=== PATIENT | male | born 1950 | race Caucasian/White ===

== ENCOUNTER → 2018-02-03 | Outpatient (REF) | payer MEDICARE ==
[2018-02-05 14:11] LABS: TESTOSTERONE FREE (DIRECT) 8.5 pg/mL (6.6-18.1)
== END ==
LOC: M LAB REF 14:13
DX: N52.9 Male erectile dysfunction, unspecified (principal)
CPT/HCPCS: 84403

== ENCOUNTER → 2019-08-22 | Outpatient (CLI) | payer MEDICARE | LOC: M LABSMTC 12:54 | PROVIDERS: ATTEND Family Medicine | DX: Z11.59 Encounter for screening for other viral diseases (principal) ==

== ENCOUNTER → 2019-09-21 | Outpatient (REF) | payer MEDICARE ==
[2019-09-21 15:02] LABS: PERCENT SATURATION 51.5 % (19.7-50.0)
[2019-09-21 17:18] LABS: FOLATE 4.3 NG/ML
== END ==
LOC: M LAB REF 12:17
PROVIDERS: ATTEND Internal Medicine
DX: D50.9 Iron deficiency anemia, unspecified (principal)

== ENCOUNTER → 2020-02-22 | Outpatient (REF) | payer MEDICARE | LOC: M LAB REF 11:13 | PROVIDERS: ATTEND Internal Medicine | DX: Z01.89 Encounter for other specified special examinations (principal) ==

== ENCOUNTER → 2020-03-28 | Outpatient (CLI) | payer MEDICARE ==
[~2020-03-28] MED LIST: ALPR0.5T3 PO; APAP500T10 PO; ASPI-161 PO; AUGM875T28 PO; BENE1POW5 PO; CLOP75TA2 PO; COLA100C5 PO; DIPH25CA32 PO; DOXY-350 PO; FERR324T2 PO; METO1TAB32 PO; MIRA3350 PO; PANT40TA29 PO; PRED20TA PO; ROSU10TA6 PO; SILD20TA11 PO; SYMB16INH PO; THERTAB52 PO; TRAZ-252 PO; VENTAER PO
== END ==
LOC: M LABSMTC 10:26
PROVIDERS: ATTEND Family Medicine
DX: U07.1 COVID-19 (principal)

== ENCOUNTER 2020-03-31 19:07 | Inpatient (IN) | payer MEDICARE ==
[~2020-03-31] VITALS: Ht 172.7 cm; Wt 91.8 kg
[2020-03-31] MEDS ORDERED: methylPREDNISolone 125MG 2ML VIAL IV ONE (19:45)
[2020-03-31] MEDS ORDERED: COMBIVENT RESPIMAT 100-20MCG INHALER 4GM INH ONE (19:45)
[2020-03-31 20:14] LABS: BASO % 0.4 % (0.0-1.0); EOS % 0.2 % (0.0-3.0); HEMATOCRIT 30.3 % (42.0-52.0); HEMOGLOBIN 8.9 g/dl (13.5-17.5); LYMPH # 0.1 10^3/uL (1.5-5.0); LYMPH % 2.3 % (24.0-44.0); MEAN CORPUSCULAR HEMOGLOBIN 22.4 pg (27.0-33.0); MEAN CORPUSCULAR HGB CONC 29.4 g/dl (32.0-36.5); MEAN CORPUSCULAR VOLUME 76.3 fl (80.0-96.0); MONO # 0.3 10^3/uL (0.0-0.8); MONO % 4.4 % (0.0-5.0); NEUTROPHILS # 5.2 10^3/uL (1.5-8.5); NEUTROPHILS % 92.2 % (36.0-66.0); PLATELET COUNT, AUTOMATED 224 10^3/uL (150-450); RED BLOOD COUNT 3.97 10^6/uL (4.30-6.10); WHITE BLOOD COUNT 5.7 10^3/uL (4.0-10.0)
[2020-03-31 20:24] LABS: INR 1.03; PROTHROMBIN TIME 13.7 SECONDS (12.5-14.3)
[2020-03-31 20:44] LABS: C REACTIVE PROTEIN QUANTITATIV 18.3 MG/DL (0.00-0.30)
[2020-03-31 20:49] LABS: ALBUMIN 3.2 GM/DL (3.2-5.2); ALT/SGPT 32 U/L (12-78); BILIRUBIN,DIRECT 0.3 MG/DL (0.0-0.2); BILIRUBIN,TOTAL 0.5 MG/DL (0.2-1.0); BLOOD UREA NITROGEN 19 MG/DL (7-18); CALCIUM LEVEL 7.9 MG/DL (8.8-10.2); CARBON DIOXIDE LEVEL 24 MEQ/L (21-32); CHLORIDE LEVEL 102 MEQ/L (98-107); CK-MB VALUE MASS 1.2 NG/ML (<3.6); CPK CREATINE PHOSPHOKINASE 350 U/L (39-308); CREATININE FOR GFR 1.11 MG/DL (0.70-1.30); GLOMERULAR FILTRATION RATE > 60.0 (>49); GLUCOSE, FASTING 110 MG/DL (70-100); MB/CK RELATIVE INDEX 0.34 (< OR =4); NT-PRO BNP 171 PG/ML (<125); SODIUM LEVEL 135 MEQ/L (136-145); TOTAL PROTEIN 6.6 GM/DL (6.4-8.2); TROPONIN I < 0.02 NG/ML (< 0.10)
[2020-03-31] MEDS ORDERED: ISOVUE-370 76% 100ML VIAL As Ordered ONE (21:20)
--- NOTE | 2020-03-31 22:10 | REPVR ---
PROCEDURE INFORMATION: Exam: XR Chest, 1 View Exam date and time: 03/31/2020 7:32 PM Age: 69 years old Clinical indication: Shortness of breath; Additional info: Dyspnea/cough TECHNIQUE: Imaging protocol: XR of the chest Views: 1 view. COMPARISON: No relevant prior studies available. FINDINGS: Lungs: Opacification at bilateral lung bases representing atelectasis/infiltrates. Pleural space: Unremarkable. No pleural effusion. No pneumothorax. Heart/Mediastinum: Unremarkable. No cardiomegaly. Bones/joints: Degenerative changes of the spine. IMPRESSION: Opacification at bilateral lung bases representing atelectasis/infiltrates. Electronically signed by: Jose Donald On 03/31/2020 22:10:30 PM
--- NOTE | 2020-03-31 22:16 | REPVR ---
PROCEDURE INFORMATION: Exam: CT Angiography Chest With Contrast Exam date and time: 03/31/2020 9:38 PM Age: 69 years old Clinical indication: Chest pain; Additional info: Covid positive, SOB TECHNIQUE: Imaging protocol: Computed tomographic angiography of the chest with intravenous contrast. 3D rendering (Not supervised by radiologist): MIP and/or 3D reconstructed images were created by the technologist. Radiation optimization: All CT scans at this facility use at least one of these dose optimization techniques: automated exposure control; mA and/or kV adjustment per patient size (includes targeted exams where dose is matched to clinical indication); or iterative reconstruction. Contrast material: ISO 370; Contrast volume: 75 ml; Contrast route: INTRAVENOUS (IV); COMPARISON: CR PORTABLE CHEST X-RAY 03/31/2020 8:12 PM FINDINGS: Pulmonary arteries: Normal. No pulmonary emboli. Aorta: Unremarkable. No aortic aneurysm. No aortic dissection. Lungs: Emphysematous changes. There is opacification at bilateral lung bases. Pleural space: Unremarkable. No pneumothorax. No pleural effusion. Heart: Unremarkable. No cardiomegaly. No pericardial effusion. Lymph nodes: Unremarkable. No enlarged lymph nodes. Bones/joints: Unremarkable. No acute fracture. Soft tissues: Unremarkable. IMPRESSION: Opacification at bilateral lung bases. Etiology likely infectious. Correlation with patient's COVID-19 status with lab value. Emphysematous changes. No pulmonary embolism. Electronically signed by: Jose Donald On 03/31/2020 22:16:33 PM
[2020-03-31] MEDS ORDERED: SILD20TA11 PO (22:23)
[2020-03-31] MEDS ORDERED: VENTAER PO (22:23)
[2020-03-31] MEDS ORDERED: APAP500T10 PO (22:23)
[2020-03-31] MEDS ORDERED: COLA100C5 PO (22:23)
[2020-03-31] MEDS ORDERED: MIRA3350 PO (22:23)
[2020-03-31] MEDS ORDERED: FERR324T2 PO (22:23)
[2020-03-31] MEDS ORDERED: ASPI-161 PO (22:23)
[2020-03-31] MEDS ORDERED: METO1TAB32 PO (22:23)
[2020-03-31] MEDS ORDERED: TRAZ-252 PO (22:23)
[2020-03-31] MEDS ORDERED: CLOP75TA2 PO (22:23)
[2020-03-31] MEDS ORDERED: ALPR0.5T3 PO (22:23)
[2020-03-31] MEDS ORDERED: THERTAB52 PO (22:23)
[2020-03-31] MEDS ORDERED: PANT40TA29 PO (22:23)
[2020-03-31] MEDS ORDERED: DIPH25CA32 PO (22:23)
[2020-03-31] MEDS ORDERED: ROSU10TA6 PO (22:23)
[2020-03-31] MEDS ORDERED: SYMB16INH PO (22:23)
[2020-03-31] MEDS ORDERED: BENE1POW5 PO (22:23)
[2020-03-31] MEDS ORDERED: MIRALAX *UNIT DOSE* 17GM PACKET PO PRN (23:00)
[2020-03-31] MEDS ORDERED: ALBUTEROL 90 MCG/ACT 8GM HFA INHALER INH PRN (23:00)
--- NOTE | 2020-03-31 23:11 | HPEPDOC ---
General Date of Admission 03/31/20 Date of Service: Mar 31, 2020 Chief Complaint The patient is a 69-year-old male admitted with a reason for visit of SOB. Source: Patient Exam Limitations: No limitations Timing/Duration: Day(s) Severity: Moderate Associated Symptoms: Shortness of breath History of Present Illness Patient is 69 years old male with past history of coronary artery diseases with stent placement in 2019, asthma, hyperlipidemia, chronic anemia, hypertension presented to the hospital with increased shortness of breath. Patient stated that he was tested positive for COVID 19 on 03/28/20. For past 3 days he has been having increased shortness of breath, cough and fever around 101. Also patient used inhalers more frequently. In ER patient was found to have acute hypoxemic respiratory failure, requiring [address] was done and showed Opacification at bilateral lung bases. Patient does not have leukocytosis. Home Medications Scheduled Alprazolam (Alprazolam) 0.5 Mg Tablet, 0.5 MG PO TID, (Reported) Aspirin (Aspirin EC) 81 Mg Tablet.dr, 81 MG PO DAILY, (Reported) Budesonide/Formoterol (Symbicort 160-4.5 Mcg Inhaler) 6 Gm Hfa.aer.ad, 2 PUFFS PO BID, (Reported) Clopidogrel Bisulfate (Clopidogrel) 75 Mg Tablet, 75 MG PO DAILY, (Reported) Diphenhydramine HCl (Diphenhydramine HCl) 25 Mg Capsule, 50 MG PO QHS, (Reported) Docusate Sodium (Colace) 100 Mg Capsule, 300 MG PO QHS, (Reported) Ferrous Sulfate (Ferrous Sulfate) 324 Mg Tablet.dr, 324 MG PO DAILY, (Reported) Metoprolol Succinate (Metoprolol Succinate) 25 Mg Tab.er.24h, 25 MG PO QHS, (Reported) Multivitamin,Therapeutic (Thera-Tabs) 1 Each Tablet, 1 TAB PO DAILY, (Reported) Pantoprazole Sodium (Pantoprazole Sodium) 40 Mg Tablet.dr, 40 MG PO DAILY, (Reported) Rosuvastatin Calcium (Rosuvastatin Calcium) 10 Mg Tablet, 5 MG PO QHS, (Reported) Trazodone HCl (Trazodone HCl) 50 Mg Tablet, 100 MG PO QHS, (Reported) Wheat Dextrin (Benefiber) 1 Each Powd.pack, 1 POW PO DAILY, (Reported) Scheduled PRN Acetaminophen (Acetaminophen) 500 Mg Tablet, 500 MG PO Q6H PRN for PAIN / FEVER, (Reported) Albuterol Sulfate (Ventolin Hfa) 18 Gm Hfa.aer.ad, 2 PUFFS PO Q4H PRN for SHORTNESS OF BREATH, (Reported) Polyethylene Glycol 3350 (Miralax) 119 Gm Powder, 17 GM PO DAILY PRN for CONSTIPATION, (Reported) dilute in 8 ounces of water or juice Sildenafil Citrate (Sildenafil Citrate) 20 Mg Tablet, 20 MG PO ASDIRECTED PRN for ERECTILE DYSFUNCTION, (Reported) Allergies Coded Allergies: theophylline (Verified Adverse Reaction, Mild, HYPERACTIVITY, 03/31/20) Past Medical History Medical History coronary artery diseases with 2 stents placement in 2019, asthma, hyperlipidemia, hypertension, chronic iron deficient anemia Surgical History coronary artery diseases with 2 stents placement in 2019 Family History I Personally reviewed family history and found not pertinent Social History * Smoker: Denies Alcohol: occationally Drugs: denies A-FIB/CHADSVASC A-FIB History Current/History of A-Fib/PAF?: No Current PO Anticoag Therapy: No Review of Systems Constitutional: Reports: Fever, Malaise Eyes: Denies: Pain ENT: Denies: Head Aches Skin: Denies: Rash Pulmonary: Reports: Dyspnea, Cough Cardiovascular: Denies: Chest Pain Gastrointestinal: Denies: Nausea, Vomiting Genitourinary: Denies: Dysuria Endocrine: Denies: Polydipsia Musculoskeletal: Denies: Neck Pain Neurological: Denies: Weakness, Numbness Psych: Reports: Mood Normal Physical Examination General Exam: Positive: Alert, Cooperative Eye Exam: Positive: PERRLA ENT Exam: Positive: Atraumatic Neck Exam: Positive: Supple; Negative: JVD Chest Exam: Positive: Rhonchi, Wheezing Heart Exam: Positive: Rate Normal Telemetry: Positive: No significant arrhythmia Extremity Exam: Negative: Cyanosis Skin Exam: Positive: Nl turgor and temperature Neuro Exam: Positive: Strength at 5/5 X4 ext Psych Exam: Positive: Mental status NL Vital Signs Vital Signs Date Time Temp Pulse Resp B/P (MAP) Pulse Ox O2 Delivery O2 Flow Rate FiO2 03/31/20 22:15 112 16 127/69 (88) 97 03/31/20 21:58 Room Air 03/31/20 19:17 2.0 03/31/20 19:12 99.1 Laboratory Data Labs 24H Laboratory Tests 2 03/31/20 19:51: Immature Granulocyte % (Auto) 0.5, Neutrophils (%) (Auto) 92.2H, Lymphocytes (%) (Auto) 2.3L, Monocytes (%) (Auto) 4.4, Eosinophils (%) (Auto) 0.2, Basophils (%) (Auto) 0.4, Neutrophils # (Auto) 5.2, Lymphocytes # (Auto) 0.1L, Monocytes # (Auto) 0.3, Eosinophils # (Auto) 0.0, Basophils # (Auto) 0.0, Nucleated Red Blood Cells % (auto) 0.0, Prothrombin Time 13.7, Prothromb Time International Ratio 1.03, D-Dimer, Quantitative 924.47H, Anion Gap 9, Glomerular Filtration Rate > 60.0, Lactic Acid Level 1.2, Calcium Level 7.9L, Ferritin 42, Total Bilirubin 0.5, Direct Bilirubin 0.3H, Aspartate Amino Transf (AST/SGOT) 32, Alanine Aminotransferase (ALT/SGPT) 32, Alkaline Phosphatase 165H, Lactate Dehydrogenase 288H, Total Creatine Kinase 350H, Creatine Kinase MB 1.2, Creatine Kinase MB Relative Index 0.34, Troponin I < 0.02, C-Reactive Protein, Quant itative 18.30H, YY-Jev-P-Type Natriuretic Peptide 171H, Total Protein 6.6, Albumin 3.2, Albumin/Globulin Ratio 0.9, Thyroid Stimulating Hormone (TSH) 1.970 CBC/BMP Laboratory Tests 03/31/20 19:51 Assessment/Plan Patient is 69 years old male with past history of coronary artery diseases with 2 stents placement in 2019, asthma, hyperlipidemia, hypertension presented to the hospital with increased shortness of breath. Patient stated that he was tested positive for COVID 19 on 03/28/20. For past 3 days he has been having increased shortness of breath, cough and fever around 101. Also patient used inhalers more frequently. In ER patient was found to have acute hypoxemic respiratory failure, requiring [address] was done and showed Opacification at bilateral lung bases. Etiology likely infectious. Correlation with patient's COVID-19 status with lab value. Emphysematous changes. No pulmonary embolism. Problems (1) COVID-19 Status: Acute Problem Text: Labs ordered according to protocol Started steroids and remdesevir (2) Pneumonia Status: Acute Problem Text: Secondary to COVID 19, there is possibility of bacterial infection Will start ceftriaxone IV and azithromycin IV If procalcitonin negative we'll stop antibiotics (3) Acute hypoxemic respiratory failure due to COVID-19 Status: Acute Problem Text: Patient developed acute hypoxemic respiratory failure secondary to pneumonia and asthma exacerbation Inhalers Steroids (4) Coronary artery disease Status: Chronic Problem Text: Continue home cardioprotective medications (5) Acute asthma exacerbation Status: Acute Problem Text: Secondary to viral pneumonia due to COVID Continue inhalers, oxygen Incentive spirometry Steroids IV Plan / VTE VTE Prophylaxis Ordered?: Yes BEHZAD KLEIN DO Mar 31, 2020 23:11
[2020-03-31] MEDS ORDERED: METOPROLOL TART 25 MG TABLET PO ONE (23:15)
[2020-04-01] VITALS (11 sets, daily range): BP systolic 114–129; BP diastolic 58–84; O2SAT 94–100
[2020-04-01 00:38] LABS: D-DIMER QUANT 815.35 ng/ml (<500)
[2020-04-01] MEDS ORDERED: SODIUM CHLORIDE 0.9% INJ 10 ML SYR IV ONE (00:45)
[2020-04-01 00:50] LABS: CK-MB VALUE MASS 1.8 NG/ML (<3.6); CPK CREATINE PHOSPHOKINASE 362 U/L (39-308); FERRITIN 40 NG/ML (26-388); LDH LACTATE DEHYDROGENASE 278 U/L (87-241); NT-PRO BNP 176 PG/ML (<125); TROPONIN I < 0.02 NG/ML (< 0.10)
[2020-04-01] MEDS: SYMBICORT 160/4.5MCG INHALER 6GM INH SCH ×3 (01:17→19:44)
[2020-04-01] MEDS: cefTRIAXone SOD 1 GM in D5W MINI-BAG PLUS 50 ML IV SCH (03:30)
[2020-04-01] MEDS: diphenhydrAMINE 25MG CAP PO SCH ×2 (03:31→20:23)
[2020-04-01] MEDS: DOCUSATE SODIUM 100MG CAPSULE PO SCH ×2 (03:31→20:23)
[2020-04-01] MEDS ORDERED: PILL CUTTER 1 EACH XX PRN (03:45)
[2020-04-01] MEDS: ROSUVASTATIN 10 MG TAB (CRESTOR) PO SCH ×2 (03:46→20:24)
[2020-04-01] MEDS: ALPRAZolam 0.5 MG TAB PO SCH ×4 (03:46→20:23)
[2020-04-01] MEDS: FERROUS SULFATE 325MG TAB PO SCH ×3 (03:46→20:24)
[2020-04-01] MEDS: METOPROLOL SUCC *XL* 25MG TAB (TopROL *XL*) PO SCH ×2 (04:04→20:25)
[2020-04-01] MEDS: ACETAMINOPHEN TAB 650MG DOSE (2X325MG) PO PRN ×2 (04:06→20:23)
[2020-04-01] MEDS: methylPREDNISolone 125MG 2ML VIAL IV SCH ×3 (04:22→20:25)
[2020-04-01] MEDS: AZITHROMYCIN INJ 500 MG, VIAL MATE ADAPTER 1 EACH in D5W 250 ML IV SCH (04:28)
[2020-04-01 08:17] LABS: HEMATOCRIT 28.9 % (42.0-52.0); HEMOGLOBIN 8.6 g/dl (13.5-17.5); MEAN CORPUSCULAR HEMOGLOBIN 22.3 pg (27.0-33.0); MEAN CORPUSCULAR HGB CONC 29.8 g/dl (32.0-36.5); MEAN CORPUSCULAR VOLUME 75.1 fl (80.0-96.0); PLATELET COUNT, AUTOMATED 226 10^3/uL (150-450); RED BLOOD COUNT 3.85 10^6/uL (4.30-6.10)
[2020-04-01] MEDS: ASPIRIN 81 MG ENTERIC TAB PO SCH (08:32)
[2020-04-01] MEDS: PANTOPRAZOLE 40MG TAB (PROTONIX) PO SCH (08:32)
[2020-04-01] MEDS: CLOPIDOGREL 75 MG TAB PO SCH (08:33)
[2020-04-01] MEDS: ENOXAPARIN 40MG/0.4ML SYRINGE (J1650 PER 10MG) SC SCH (08:33)
[2020-04-01 08:41] LABS: ALT/SGPT 30 U/L (12-78); BILIRUBIN,TOTAL 0.4 MG/DL (0.2-1.0); BLOOD UREA NITROGEN 21 MG/DL (7-18); CARBON DIOXIDE LEVEL 24 MEQ/L (21-32); CHLORIDE LEVEL 103 MEQ/L (98-107); CREATININE FOR GFR 1.04 MG/DL (0.70-1.30); GLOMERULAR FILTRATION RATE > 60.0 (>49); GLUCOSE, FASTING 174 MG/DL (70-100); MAGNESIUM LEVEL 2.5 MG/DL (1.8-2.4); SODIUM LEVEL 135 MEQ/L (136-145); TOTAL PROTEIN 6.4 GM/DL (6.4-8.2)
--- NOTE | 2020-04-01 09:19 | ECGEPIP ---
[facility] - ED Test Date: 2020-03-31 Pat Name: MICHAEL REYNOSO Department: Room: [place] [address] Gender: Male Inside Steward/Stewardess: JUDITH : 1950 Requested By: LIV Mckeon Order Number: [id number] Reading MD: Jg Kendrick Measurements Intervals [place] Rate: 114 P: 42 KS: 193 QRS: 5 QRSD: 105 T: 19 QT: 313 QTc: 433 Interpretive Statements SINUS TACHYCARDIA POOR R WAVE PROGRESSION NO PRIORS FOR COMPARISON Electronically Signed on 04-01-2020 9:19:29 EST by Jg Kendrick
--- NOTE | 2020-04-01 14:55 | IPNPDOC ---
Text Note Date of Service The patient was seen on 04/01/20. NOTE Subjective: Patient's breathing significantly improved since yesterday, his o xygen saturation around 97% on 2 L. Objective: GENERAL APPEARANCE: NAD HEENT: no scleral icterus, no JVD, EOMI CARDIOVASCULAR: S1S2 LUNGS: Diminished lung sounds bilaterally ABDOMEN: soft & not tender w palpitation MUSCULOSKELETAL: no cyanosis, no swelling INTEGUMENT: no generalized pallor NEUROLOGICAL: cranial nerve function from 2-12 intact intact, follows commands, speech not dysarthric Assessment/Plan Patient is 69 years old male with past history of coronary artery diseases with 2 stents placement in 2019, asthma, hyperlipidemia, hypertension presented to the hospital with increased shortness of breath. Patient stated that he was tested positive for COVID 19 on 03/28/20. For past 3 days he has been having increased shortness of breath, cough and fever around 101. Also patient used inhalers more frequently. In ER patient was found to have acute hypoxemic respiratory failure, requiring [address] was done and showed Opacification at bilateral lung bases. Etiology likely infectious. Correlation with patient's COVID-19 status with lab value. Emphysematous changes. No pulmonary embolism. Problems (1) COVID-19 Continue steroids and remdesevir. Inflammatory markers slightly improved (2) Pneumonia Secondary to COVID 19 superimposed with bacterial component Continue ceftriaxone IV and azithromycin IV Procalcitonin elevated to 1.6 (3) Acute hypoxemic respiratory failure due to COVID-19 Resolved Patient developed acute hypoxemic respiratory failure secondary to pneumonia and asthma exacerbation Inhalers Steroids (4) Coronary artery disease Continue home cardioprotective medications (5) asthma exacerbation Resolved. No wheezes today Secondary to viral pneumonia due to COVID Continue inhalers, oxygen Incentive spirometry Steroids IV VS,Fishbone, I+O VS, Fishbone, I+O Laboratory Tests 03/31/20 19:51 04/01/20 07:20 Vital Signs Date Time Temp Pulse Resp B/P (MAP) Pulse Ox O2 Delivery O2 Flow Rate FiO2 04/01/20 08:21 98 Nasal Cannula 2.0 04/01/20 07:36 97.1 78 21 120/71 (87) I&O- Last 24 Hours up to 6 AM 04/01/20 06:00 Intake Total 230 ml Balance 230 ml BEHZAD KLEIN DO Apr 01, 2020 14:55
[2020-04-01] MEDS ORDERED: traZODone 50 MG TAB PO SCH (21:00)
[2020-04-01] MEDS ORDERED: SODIUM CHLORIDE 0.9% INJ 10 ML SYR IV SCH (23:45)
[2020-04-02] VITALS: O2SAT 94
[2020-04-02] MEDS: cefTRIAXone SOD 1 GM in D5W MINI-BAG PLUS 50 ML IV SCH (01:01)
[2020-04-02] MEDS: AZITHROMYCIN INJ 500 MG, VIAL MATE ADAPTER 1 EACH in D5W 250 ML IV SCH (02:28)
[2020-04-02 04:00] VITALS: O2SAT 95
[2020-04-02] MEDS: methylPREDNISolone 125MG 2ML VIAL IV SCH ×2 (04:14→11:12)
[2020-04-02 04:15] VITALS: BP 123/59
[2020-04-02 07:18] VITALS: BP 107/57
[2020-04-02] MEDS: SYMBICORT 160/4.5MCG INHALER 6GM INH SCH (07:39)
[2020-04-02 08:00] VITALS: O2SAT 95
[2020-04-02] MEDS: CLOPIDOGREL 75 MG TAB PO SCH (08:38)
[2020-04-02] MEDS: ENOXAPARIN 40MG/0.4ML SYRINGE (J1650 PER 10MG) SC SCH (08:38)
[2020-04-02] MEDS: FERROUS SULFATE 325MG TAB PO SCH (08:38)
[2020-04-02] MEDS: ASPIRIN 81 MG ENTERIC TAB PO SCH (08:39)
[2020-04-02] MEDS: PANTOPRAZOLE 40MG TAB (PROTONIX) PO SCH (08:39)
[2020-04-02] MEDS: ALPRAZolam 0.5 MG TAB PO SCH (08:39)
[2020-04-02 12:00] VITALS: O2SAT 95
[2020-04-02] MEDS ORDERED: DOXY-350 PO (12:56)
[2020-04-02] MEDS ORDERED: AUGM875T28 PO (12:56)
[2020-04-02] MEDS ORDERED: PRED20TA PO (12:56)
--- NOTE | 2020-04-02 17:45 | DS.PDOC ---
Discharge Summary General Date of Admission Mar 31, 2020 at 22:44 Date of Discharge 04/02/20 Discharge Summary PROCEDURES PERFORMED DURING STAY: [None]. ADMITTING DIAGNOSES: COVID-19 Pneumonia Acute hypoxemic respiratory failure due to COVID-19 Coronary artery disease asthma exacerbation DISCHARGE DIAGNOSES: COVID-19 Pneumonia Acute hypoxemic respiratory failure due to COVID-19 Coronary artery disease asthma exacerbation COMPLICATIONS/CHIEF COMPLAINT: Covid 19, Hypoxia, Pneumonia. HISTORY OF PRESENT ILLNESS:Patient is 69 years old male with past history of coronary artery diseases with 2 stents placement in 2019, asthma, hyperlipidemia, hypertension presented to the hospital with increased shortness of breath. Patient stated that he was tested positive for COVID 19 on 03/28/20. For past 3 days he has been having increased shortness of breath, cough and fever around 101. Also patient used inhalers more frequently. In ER patient was found to have acute hypoxemic respiratory failure, requiring [address] was done and showed Opacification at bilateral lung bases. Etiology likely infectious. Correlation with patient's COVID-19 status with lab value. Emphysematous changes. No pulmonary embolism. HOSPITAL COURSE: During hospital stay following issues addressed (1) COVID-19 Patient received steroids and remdesevir. Inflammatory markers slightly improved (2) Pneumonia Secondary to COVID 19 superimposed with bacterial component Patient received ceftriaxone IV and azithromycin IV Procalcitonin elevated to 1.6 (3) Acute hypoxemic respiratory failure due to COVID-19 Resolved Patient developed acute hypoxemic respiratory failure secondary to pneumonia and asthma exacerbation Inhalers Steroids (4) Coronary artery disease Continue home cardioprotective medications (5) asthma exacerbation Resolved. No wheezes today Secondary to viral pneumonia due to COVID Continue inhalers, oxygen Incentive spirometry Steroids IV DISCHARGE MEDICATIONS: Please see below. ALLERGIES: Please see below. PHYSICAL EXAMINATION ON DISCHARGE: VITAL SIGNS: Please see below. GENERAL APPEARANCE: NAD HEENT: no scleral icterus, no JVD, EOMI CARDIOVASCULAR: S1S2 LUNGS: Diminished lung sounds bilaterally ABDOMEN: soft & not tender w palpitation MUSCULOSKELETAL: no cyanosis, no swelling INTEGUMENT: no generalized pallor NEUROLOGICAL: cranial nerve function from 2-12 intact intact, follows commands, speech not dysarthric LABORATORY DATA: Please see below. IMAGING: [facility] NAME: MICHAEL REYNOSO DATE OF : 1950 BUSINESS NUMBER: [id number] AGE: 69 SEX: M REPORT #: [id number] ROOM: ED TECHNOLOGIST: LUZ MARIA DOCTOR: LIV DELVALLE MD Ordered for Date&Time: 03/31/202032 cc: [~ rep ct ivnm] Service Date&Time: 03/31/202137 This report is in Signed status. Interpretation performed by [facility]. Thank you for having your radiology procedures performed at [facility] RADIOLOGY REPORT Date&Time printed: [~ rep prt dt last] [~ rep prt tm last] Page 2 of 2 [place] [id number] RADIOLOGY REPORT This report is in Signed status. Interpretation performed by [facility]. Thank you for having your radiology procedures performed at [facility] RADIOLOGY REPORT Date&Time printed: [~ rep prt dt last] [~ rep prt tm last] Page 1 of 1 Exam: CT Angiography Chest With Contrast Exam date and time: 03/31/2020 9:38 PM Age: 69 years old Clinical indication: Chest pain; Additional info: Covid positive, SOB TECHNIQUE: Imaging protocol: Computed tomographic angiography of the chest with intravenous contrast. 3D rendering (Not supervised by radiologist): MIP and/or 3D reconstructed images were created by the technologist. Radiation optimization: All CT scans at this facility use at least one of these dose optimization techniques: automated exposure control; mA and/or kV adjustment per patient size (includes targeted exams where dose is matched to clinical indication); or iterative reconstruction. Contrast material: ISO 370; Contrast volume: 75 ml; Contrast route: INTRAVENOUS (IV); COMPARISON: CR PORTABLE CHEST X-RAY 03/31/2020 8:12 PM FINDINGS: Pulmonary arteries: Normal. No pulmonary emboli. Aorta: Unremarkable. No aortic aneurysm. No aortic dissection. Lungs: Emphysematous changes. There is opacification at bilateral lung bases. Pleural space: Unremarkable. No pneumothorax. No pleural effusion. Heart: Unremarkable. No cardiomegaly. No pericardial effusion. Lymph nodes: Unremarkable. No enlarged lymph nodes. Bones/joints: Unremarkable. No acute fracture. Soft tissues: Unremarkable. IMPRESSION: Opacification at bilateral lung bases. Etiology likely infectious. Correlation with patient's COVID-19 status with lab value. Emphysematous changes. No pulmonary embolism. Electronically signed by: Jose Donald On 03/31/2020 22:16:33 PM DD: JOSE Tesfaye RAI DO 03/31/202137 DT: LAINEY 03/31/202215 DS: LEONIE 03/31/202215 [~ rep ct labl] PROGNOSIS: Fair ACTIVITY: [As tolerated]. DIET: Cardiac DISPOSITION: Home Health Service. DISCHARGE INSTRUCTIONS: [place] for 2 weeks in total ITEMS TO FOLLOWUP ON ON OUTPATIENT: f/u with PCP in 7 days DISCHARGE CONDITION: [Stable]. TIME SPENT ON DISCHARGE: Greater than 40 minutes. Vital Signs/I&Os Vital Signs Date Time Temp Pulse Resp B/P (MAP) Pulse Ox O2 Delivery O2 Flow Rate FiO2 04/02/20 12:00 95 Room Air 04/02/20 07:18 97.0 78 19 107/57 (74) 04/01/20 08:21 2.0 I&O- Last 24 Hours up to 6 AM 04/02/20 06:00 Intake Total 2210 ml Output Total 1200 ml Balance 1010 ml Laboratory Data Labs 24H Laboratory Tests 2 04/01/20 22:53: C-Reactive Protein, Quantitative 14.00H Discharge Medications Scheduled Alprazolam (Alprazolam) 0.5 Mg Tablet, 0.5 MG PO TID, (Reported) Amoxicillin/Potassium Clav (Augmentin 875-125 Tablet) 1 Each Tablet, 1 TAB PO BID Aspirin (Aspirin EC) 81 Mg Tablet.dr, 81 MG PO DAILY, (Reported) Budesonide/Formoterol (Symbicort 160-4.5 Mcg Inhaler) 6 Gm Hfa.aer.ad, 2 PUFFS PO BID, (Reported) Clopidogrel Bisulfate (Clopidogrel) 75 Mg Tablet, 75 MG PO DAILY, (Reported) Diphenhydramine HCl (Diphenhydramine HCl) 25 Mg Capsule, 50 MG PO QHS, (Reported) Docusate Sodium (Colace) 100 Mg Capsule, 300 MG PO QHS, (Reported) Doxycycline Monohydrate (Doxycycline) 100 Mg Capsule, 100 MG PO BID Ferrous Sulfate (Ferrous Sulfate) 324 Mg Tablet.dr, 324 MG PO DAILY, (Reported) Metoprolol Succinate (Metoprolol Succinate) 25 Mg Tab.er.24h, 25 MG PO QHS, (Reported) Multivitamin,Therapeutic (Thera-Tabs) 1 Each Tablet, 1 TAB PO DAILY, (Reported) Pantoprazole Sodium (Pantoprazole Sodium) 40 Mg Tablet.dr, 40 MG PO DAILY, (Reported) Prednisone (Prednisone) 20 Mg Tablet, 20 MG PO BID Rosuvastatin Calcium (Rosuvastatin Calcium) 10 Mg Tablet, 5 MG PO QHS, (Repor kenny) Trazodone HCl (Trazodone HCl) 50 Mg Tablet, 100 MG PO QHS, (Reported) Wheat Dextrin (Benefiber) 1 Each Powd.pack, 1 POW PO DAILY, (Reported) Scheduled PRN Acetaminophen (Acetaminophen) 500 Mg Tablet, 500 MG PO Q6H PRN for PAIN / FEVER, (Reported) Albuterol Sulfate (Ventolin Hfa) 18 Gm Hfa.aer.ad, 2 PUFFS PO Q4H PRN for SHORTNESS OF BREATH, (Reported) Polyethylene Glycol 3350 (Miralax) 119 Gm Powder, 17 GM PO DAILY PRN for CONSTIPATION, (Reported) dilute in 8 ounces of water or juice Sildenafil Citrate (Sildenafil Citrate) 20 Mg Tablet, 20 MG PO ASDIRECTED PRN for ERECTILE DYSFUNCTION, (Reported) Allergies Coded Allergies: theophylline (Verified Adverse Reaction, Mild, HYPERACTIVITY, 03/31/20) BEHZAD KLEIN DO Apr 02, 2020 17:45
== END 2020-04-02 14:48 | disposition home health service (06) | DRG 177 ==
LOC: M ED 19:07 → M ED INP 22:44 → M 4MAIN 04-01 01:57
PROVIDERS: ADMIT Internal Medicine; ATTEND Internal Medicine
DX: U07.1 COVID-19 (principal); J96.01 Acute respiratory failure with hypoxia; J12.89 Other viral pneumonia; J45.901 Unspecified asthma with (acute) exacerbation; I25.10 Atherosclerotic heart disease of native coronary artery without angina pectoris; Z95.2 Presence of prosthetic heart valve; E78.5 Hyperlipidemia, unspecified; I10 Essential (primary) hypertension; Z79.82 Long term (current) use of aspirin; Z79.899 Other long term (current) drug therapy; Z88.8 Allergy status to other drugs, medicaments and biological substances; D64.9 Anemia, unspecified

== ENCOUNTER 2020-04-04 14:03 | Inpatient (IN) | payer MEDICARE ==
[~2020-04-04] VITALS: Ht 170.2 cm; Wt 90.9 kg
[2020-04-04 14:20] LABS: ABG BASE EXCESS 0.5 (-2.0-2.0); ABG HCO3 23.3 MEQ/L (22.0-26.0); ABG O2 SATURATION 88.9 % (95.0-99.0); ABG PARTIAL PRESSURE CO2 30.5 mmHg (35.0-45.0); ABG PARTIAL PRESSURE O2 54.6 mmHg (75.0-100.0); ABG STANDARD HCO3 24.8 MEQ/L (22.0-26.0); ABG TOTAL CO2 24.2 MEQ/L (23.0-31.0); ABG pH (ARTERIAL) 7.501 UNITS (7.350-7.450)
[2020-04-04] MEDS: COMBIVENT RESPIMAT 100-20MCG INHALER 4GM INH SCH ×5 (14:23→23:35)
--- NOTE | 2020-04-04 14:38 | REP ---
INDICATION: Coronavirus workup. COMPARISON: PA and lateral chest 08/01/2019 and portable chest dated 03/31/2020. TECHNIQUE: Single frontal view of the chest performed portably with the patient upright. FINDINGS: There are bibasilar infiltrates, unchanged from 03/31/2020, but not present on 08/01/2019. The mid and upper lung zones remain clear. Cardiac size is normal. Samanta, mediastinum, and skeletal structures are unremarkable. IMPRESSION: Persisting bibasilar infiltrates, unchanged from 03/31/2020. <Electronically signed by Morgan Diaz > 04/04/20 [id number]
[2020-04-04 14:45] LABS: BASO % 0.1 % (0.0-1.0); HEMATOCRIT 27.8 % (42.0-52.0); LYMPH # 0.2 10^3/uL (1.5-5.0); LYMPH % 2.4 % (24.0-44.0); MEAN CORPUSCULAR HEMOGLOBIN 21.6 pg (27.0-33.0); MEAN CORPUSCULAR HGB CONC 28.8 g/dl (32.0-36.5); MEAN CORPUSCULAR VOLUME 74.9 fl (80.0-96.0); MONO # 0.6 10^3/uL (0.0-0.8); MONO % 5.9 % (0.0-5.0); NEUTROPHILS # 9.1 10^3/uL (1.5-8.5); NEUTROPHILS % 90.1 % (36.0-66.0); PLATELET COUNT, AUTOMATED 349 10^3/uL (150-450); RED BLOOD COUNT 3.71 10^6/uL (4.30-6.10)
[2020-04-04 15:03] LABS: INR 1.13; PROTHROMBIN TIME 14.8 SECONDS (12.5-14.3)
[2020-04-04 15:04] LABS: PARTIAL THROMBOPLASTIN TIME 34.5 SECONDS (24.2-38.5)
[2020-04-04 15:07] LABS: D-DIMER QUANT 402.63 ng/ml (<500)
[2020-04-04 15:34] LABS: ALBUMIN 2.9 GM/DL (3.2-5.2); ALT/SGPT 86 U/L (12-78); BILIRUBIN,TOTAL 0.5 MG/DL (0.2-1.0); BLOOD UREA NITROGEN 24 MG/DL (7-18); C REACTIVE PROTEIN QUANTITATIV 9.35 MG/DL (0.00-0.30); CALCIUM LEVEL 8.3 MG/DL (8.8-10.2); CARBON DIOXIDE LEVEL 26 MEQ/L (21-32); CHLORIDE LEVEL 104 MEQ/L (98-107); CPK CREATINE PHOSPHOKINASE 183 U/L (39-308); CREATININE FOR GFR 0.98 MG/DL (0.70-1.30); FERRITIN 34 NG/ML (26-388); GLOMERULAR FILTRATION RATE > 60.0 (>49); GLUCOSE, FASTING 126 MG/DL (70-100); LDH LACTATE DEHYDROGENASE 320 U/L (87-241); MAGNESIUM LEVEL 2.1 MG/DL (1.8-2.4); MB/CK RELATIVE INDEX 1.09 (< OR =4); POTASSIUM SERUM 4.1 MEQ/L (3.5-5.1); SODIUM LEVEL 136 MEQ/L (136-145); TROPONIN I < 0.02 NG/ML (< 0.10)
[2020-04-04] MEDS ORDERED: ACETAMINOPHEN 500 MG TAB PO PRN (17:00)
[2020-04-04] MEDS ORDERED: MIRALAX *UNIT DOSE* 17GM PACKET PO PRN (17:00)
[2020-04-04] MEDS: methylPREDNISolone 125MG 2ML VIAL IV SCH ×2 (17:53→23:34)
[2020-04-04 18:14] VITALS: BP 134/70
--- NOTE | 2020-04-04 19:04 | HPEPDOC ---
[facility] Medical History & Physical Date of Admission Apr 04, 2020 Date of Service: Apr 04, 2020 History and Physical CHIEF COMPLAINT: COVID POSITIVE, shortness of breath HISTORY OF PRESENT ILLNESS: 69 year old male w pmh significant for CAD, asthma [facility], emphysema on CT chest, coronary stents, erectile dysfunction, dyslipidemia admitted at [facility] from 03/31/20 to 04/02/20 for asthma exacerbation, covid -19 pneumonia treated with remdesevir x2days, abx, and prednisone taper returns with CONRAD, productive cough of brownish sputum,low grade temp 100.0, headache mostly in the back of the head, dysgeusia, anosmia, nausea without vomiting or abdominal pain, worsening lowback pain than usual radiating across his back, and "struggling to breathe without oxygen" since hospital discharge on 04/02/20. He was seen by telemedicine by his primary care physician, Dr. León before coming to the ER today, when he was found to be hypoxic 87% on room air with persistent infiltrates on CXR. Hospitalist was asked to admit for acute hypoxic respiratory failure, coronaviral infection, possible HCAP, and asthma exacerbation. PAST MEDICAL HISTORY: CAD coronary stents, dyslipidemia, asthma, emphysema by CT Chest, nephrolithiasis, bronchitis, chronic low back pain, hiatal hernia, nonbleeding internal hemorrhoids, iron deficiency anemia, 2nonbleeding colonic angioectasias, descending colonic erosions, anal fissures, cataracts, umbilical hernia, sinus problems, steroid-induced retinopathy s/p laser photocoagulation PAST SURGICAL HISTORY: coronary stents, umbilical herniorrhaphy 2000, sinus surgery, hemorrhoid surgery, b/l cataract surgery, anal fistula surgery, EGD 2010, colonoscopy 2010,laser treatment for retinopathy by retinal specialist. SOCIAL HISTORY: worked for [employer], , one son in [place], quit smoking 40 years ago, previously smoed cigarrettes 1ppd x 10 years. FAMILY HISTORY: unk ALLERGIES: Please see below. REVIEW OF SYSTEMS: 10 point ROS negative aside from +finding on HPI HOME MEDICATIONS: Please see below. PHYSICAL EXAMINATION: VITAL SIGNS: see below GENERAL APPEARANCE: + use acc resp mm slight pallor 6-7word conversational dyspnea , persistent cough. HEENT: no jvd. no icterus EOMI no cervical LAD. + moist mucus membranes CARDIOVASCULAR:S1S2 RRR LUNGS: diminished. coarse breath sounds. fine expiratory wheezes scattered. prolonged expiration ABDOMEN: soft nt nd no hsm EXTREMITIES: no cyanosis, clubbing, edema LABORATORY DATA: See below. IMAGIN04/04/20 CXR PA and lateral chest 08/01/2019 and portable chest dated 03/31/2020. TECHNIQUE: Single frontal view of the chest performed portably with the patient upright. FINDINGS: There are bibasilar infiltrates, unchanged from 03/31/2020, but not present on 08/01/2019. The mid and upper lung zones remain clear. Cardiac size is normal. Samanta, mediastinum, and skeletal structures are unremarkable. IMPRESSION: Persisting bibasilar infiltrates, unchanged from 03/31/2020. <Electronically signed by Morgan Diaz > 04/04/20 1435 03/31/20CT chest with contrast Exam: CT Angiography Chest With Contrast Exam date and time: 03/31/2020 9:38 PM Age: 69 years old Clinical indication: Chest pain; Additional info: Covid positive, SOB TECHNIQUE: Imaging protocol: Computed tomographic angiography of the chest with intravenous contrast. 3D rendering (Not supervised by radiologist): MIP and/or 3D reconstructed images were created by the technologist. Radiation optimization: All CT scans at this facility use at least one of these dose optimization techniques: automated exposure control; mA and/or kV adjustment per patient size (includes targeted exams where dose is matched to clinical indication); or iterative reconstruction. Contrast material: ISO 370; Contrast volume: 75 ml; Contrast route: INTRAVENOUS (IV); COMPARISON: CR PORTABLE CHEST X-RAY 03/31/2020 8:12 PM FINDINGS: Pulmonary arteries: Normal. No pulmonary emboli. Aorta: Unremarkable. No aortic aneurysm. No aortic dissection. Lungs: Emphysematous changes. There is opacification at bilateral lung bases. Pleural space: Unremarkable. No pneumothorax. No pleural effusion. Heart: Unremarkable. No cardiomegaly. No pericardial effusion. Lymph nodes: Unremarkable. No enlarged lymph nodes. Bones/joints: Unremarkable. No acute fracture. Soft tissues: Unremarkable. IMPRESSION: Opacification at bilateral lung bases. Etiology likely infectious. Correlation with patient's COVID-19 status with lab value. Emphysematous changes. No pulmonary embolism. Electronically signed by: Jose Donald On 03/31/2020 22:16:33 PM MICROBIOLOGY: Please see below. ASSESSMENT: 69 year old male w pmh significant for CAD, asthma [facility], emphysema on CT chest, coronary stents, erectile dysfunction, dyslipidemia admitted at [facility] from 03/31/20 to 04/02/20 for asthma exacerbation, covid -19 pneumonia treated with remdesevir x2days, abx, and prednisone taper returns with CONRAD, productive cough of brownish sputum,low grade temp 100.0, headache mostly in the back of the head, dysgeusia, anosmia, nausea without vomiting or abdominal pain, worsening lowback pain than usual radiating across his back, and "struggling to breathe without oxygen" since hospital discharge on 04/02/20. He was seen by telemedicine by his primary care physician, Dr. León before coming to the ER today, when he was found to be hypoxic 87% on room air with persistent infiltrates on CXR. Hospitalist was asked to admit for acute hypoxic respiratory failure, coronaviral infection, possible HCAP, and asthma exacerbation. Acute Hypoxic Respiratory Failure 87%RA on arrival Coronavirus infection Bilateral pneumonia, possibly health-care associated due to recent admission from 03/31/20 to 04/02/20 Symptomatic anemia History of iron deficiency anemia Coronary Artery Disease with h/o coronary stents Dyslipidemia Asthma exacerbation Emphysema by CT Chest Chronic low back pain h/o hiatal hernia h/o nonbleeding internal hemorrhoids h/o nonbleeding colonic angioectasias h/o descending colonic erosions h/o anal fissures / surgery PLAN: Due to recent hospitalization and persistent hypoxia, patient has been admitted for possible health-care associated bacterial pneumonia in the setting of coronavirus infection, asthma exacerbation, and symptomatic anemia from known h/o iron deficiency most likely due to prior h/o angioectasias and colonic erosions. Previous CT chest with angio was negative for PE, but patient will be treated with lovenox sq q12hrs due to hypercoagulability seen in covid pts, r emdesevir x 5days with serial inflammatory markers monitoring, continuous pulse oximetry, inhaled bronchodilators and steroids. work up for anemia will be undertaken including reticulocyte count, iron studies, stool for blood, peripheral blood smear, and for comfort and improve hypoxia, if repeat he moglobin <8, will transfuse 2 units rbc due to history of CAD and to prevent any further ischemic symptoms. cardiac markers will be monitored. if no improvement with above measures, with abnormal card perea, may need 2D echo. Resume all other home meds. Full code. 2gram sodium diet. Vital Signs Vital Signs Date Time Temp Pulse Resp B/P (MAP) Pulse Ox O2 Delivery O2 Flow Rate FiO2 04/04/20 16:33 102 87 04/04/20 16:30 166/70 (102) 04/04/20 15:05 Nasal Cannula 2.0 04/04/20 14:26 24 04/04/20 14:17 96.2 Laboratory Data Labs 24H Laboratory Tests 2 04/04/20 14:14: Prothrombin Time 14.8H, Prothromb Time International Ratio 1.13, Activated Partial Thromboplast Time 34.5, Fibrinogen 641H, D-Dimer, Quantitative 402.63, Urine Color YELLOW, Urine Appearance CLEAR, Urine pH 5.0, Urine Specific [place] 1.017, Urine Protein NEGATIVE, Urine Glucose (UA) NEGATIVE, Urine Ketones NEGATIVE, Urine Blood NEGATIVE, Urine Nitrite NEGATIVE, Urine Bilirubin NEGATI VE, Urine Urobilinogen 0.2, Urine Leukocyte Esterase NEGATIVE, Urine WBC (Auto) 0, Urine RBC (Auto) 0, Urine Hyaline Casts (Auto) 0, Urine Bacteria (Auto) NEGATIVE, Urine Squamous Epithelial Cells 0, Urine Sperm (Auto) , Blood Gas Bicarbonate Standard 24.8, Arterial Blood pH 7.501H, Arterial Blood Partial Pressure CO2 30.5L, Arterial Blood Partial Pressure O2 54.6L, Arterial Blood Total CO2 24.2, Arterial Blood HCO3 23.3, Arterial Blood Base Excess 0.5, Arterial Blood Oxygen Saturation 88.9L, Anion Gap 6L, Glomerular Filtration Rate > 60.0, Calcium Level 8.3L, Magnesium Level 2.1, Ferritin 34, Total Bilirubin 0.5, Aspartate Amino Transf (AST/SGOT) 36, Alanine Aminotransferase (ALT/SGPT) 86H, Alkaline Phosphatase 117, Lactate Dehydrogenase 320H, Total Creatine Kinase 183, Creatine Kinase MB 2.0, Creatine Kinase MB Relative Index 1.09, Troponin I < 0.02, C-Reactive Protein, Quantitative 9.35H, Total Protein 6.0L, Albumin 2.9L, Albumin/Globulin Ratio 0.9 04/04/20 14:15: Immature Granulocyte % (Auto) 1.5, Neutrophils (%) (Auto) 90.1H, Lymphocytes (%) (Auto) 2.4L, Monocytes (%) (Auto) 5.9H, Eosinophils (%) (Auto) 0.0, Basophils (%) (Auto) 0.1, Neutrophils # (Auto) 9.1H, Lymphocytes # (Auto) 0.2L, Monocytes # (Auto) 0.6, Eosinophils # (Auto) 0.0, Basophils # (Auto) 0.0, Nucleated Red Blood Cells % (auto) 0.3H, Procalcitonin 0.27 04/04/20 14:16: Lactic Acid Level 1.8 CBC/BMP Laboratory Tests 04/04/20 14:14 04/04/20 14:15 Microbiology Microbiology 04/04/20 Blood Culture, Received Pending Home Medications Scheduled Alprazolam (Alprazolam) 0.5 Mg Tablet, 0.5 MG PO TID Amoxicillin/Potassium Clav (Augmentin 875-125 Tablet) 1 Each Tablet, 1 TAB PO BID Aspirin (Aspirin EC) 81 Mg Tablet.dr, 81 MG PO DAILY Budesonide/Formoterol (Symbicort 160-4.5 Mcg Inhaler) 6 Gm Hfa.aer.ad, 2 PUFFS PO BID Clopidogrel Bisulfate (Clopidogrel) 75 Mg Tablet, 75 MG PO DAILY Diphenhydramine HCl (Diphenhydramine HCl) 25 Mg Capsule, 50 MG PO QHS Docusate Sodium (Colace) 100 Mg Capsule, 300 MG PO QHS Doxycycline Monohydrate (Doxycycline) 100 Mg Capsule, 100 MG PO BID Ferrous Sulfate (Ferrous Sulfate) 324 Mg Tablet.dr, 324 MG PO DAILY Metoprolol Succinate (Metoprolol Succinate) 25 Mg Tab.er.24h, 25 MG PO QHS Multivitamin,Therapeutic (Thera-Tabs) 1 Each Tablet, 1 TAB PO DAILY Pantoprazole Sodium (Pantoprazole Sodium) 40 Mg Tablet.dr, 40 MG PO DAILY Prednisone (Prednisone) 20 Mg Tablet, 20 MG PO BID Rosuvastatin Calcium (Rosuvastatin Calcium) 10 Mg Tablet, 5 MG PO QHS Trazodone HCl (Trazodone HCl) 50 Mg Tablet, 100 MG PO QHS Wheat Dextrin (Benefiber) 1 Each Powd.pack, 1 POW PO DAILY Scheduled PRN Acetaminophen (Acetaminophen) 500 Mg Tablet, 500 MG PO Q6H PRN for PAIN / FEVER Albuterol Sulfate (Ventolin Hfa) 18 Gm Hfa.aer.ad, 2 PUFFS PO Q4H PRN for SHORTNESS OF BREATH Polyethylene Glycol 3350 (Miralax) 119 Gm Powder, 17 GM PO DAILY PRN for CONSTIPATION dilute in 8 ounces of water or juice Sildenafil Citrate (Sildenafil Citrate) 20 Mg Tablet, 20 MG PO ASDIRECTED PRN for ERECTILE DYSFUNCTION Allergies Coded Allergies: theophylline (Verified Adverse Reaction, Mild, HYPERACTIVITY, 04/04/20) A-FIB/CHADSVASC A-FIB History Current/History of A-Fib/PAF?: No Current PO Anticoag Therapy: No Age/Risk Factor Scoring CHADSVASC: CHADSVASC Response (Comments) Value Age Risk Factor Age 65-74 years old 1 Gender Risk Factor Male 0 Hx of CHF No 0 Hx of HTN No 0 Hx of Stroke/TIA/or VTE No 0 Hx of Diabetes No 0 Hx of Vascular Disease No 0 Total 1 Treatment Treatment ordered: NONE SHANNAN GONG MD Apr 04, 2020 16:57
--- NOTE | 2020-04-04 19:31 | ECGEPIP ---
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
[2020-04-04] MEDS: SYMBICORT 160/4.5MCG INHALER 6GM INH SCH (19:39)
[2020-04-04] MEDS ORDERED: VANCOMYCIN HCL 1,000 MG, VIAL MATE ADAPTER 1 EACH in D5W 250 ML IV SCH (20:00)
[2020-04-04] MEDS: DOCUSATE SODIUM 100MG CAPSULE PO SCH (20:38)
[2020-04-04] MEDS: diphenhydrAMINE 25MG CAP PO SCH (20:38)
[2020-04-04] MEDS: traZODone 100 MG TAB PO SCH (20:38)
[2020-04-04] MEDS: CEFEPIME HCL 2 GM in D5W MINI-BAG PLUS 50 ML IV SCH (20:38)
[2020-04-04] MEDS: ALPRAZolam 0.5 MG TAB PO SCH (20:38)
[2020-04-04] MEDS: ROSUVASTATIN 10 MG TAB (CRESTOR) PO SCH (20:39)
[2020-04-04] MEDS: ENOXAPARIN 60MG/0.6ML SYRINGE (J1650 PER 10MG) SC SCH (20:40)
[2020-04-04] MEDS: METOPROLOL SUCC *XL* 25MG TAB (TopROL *XL*) PO SCH (20:50)
[2020-04-04 21:00] VITALS: BP 139/71; O2SAT 93
[2020-04-04] MEDS ORDERED: VANCOMYCIN HCL 1,000 MG, VIAL MATE ADAPTER 1 EACH in D5W 250 ML IV ONE (21:00)
[2020-04-04 21:15] VITALS: O2SAT 93
[2020-04-04] MEDS ORDERED: SODIUM CHLORIDE 0.9% INJ 10 ML SYR IV ONE (23:00)
[2020-04-05] VITALS (17 sets, daily range): BP systolic 114–157; BP diastolic 55–69; O2SAT 89–94
[2020-04-05] MEDS: CEFEPIME HCL 2 GM in D5W MINI-BAG PLUS 50 ML IV SCH ×3 (03:04→18:06)
[2020-04-05] MEDS: COMBIVENT RESPIMAT 100-20MCG INHALER 4GM INH SCH ×5 (03:35→21:48)
[2020-04-05] MEDS: methylPREDNISolone 125MG 2ML VIAL IV SCH ×4 (04:16→23:34)
[2020-04-05 05:58] LABS: HEMATOCRIT 23.1 % (42.0-52.0); LYMPH # 0.1 10^3/uL (1.5-5.0); MEAN CORPUSCULAR HEMOGLOBIN 21.5 pg (27.0-33.0); MEAN CORPUSCULAR VOLUME 74.3 fl (80.0-96.0); MONO # 0.1 10^3/uL (0.0-0.8); MONO % 2.2 % (0.0-5.0); NEUTROPHILS # 5.2 10^3/uL (1.5-8.5); NEUTROPHILS % 94.4 % (36.0-66.0); PLATELET COUNT, AUTOMATED 265 10^3/uL (150-450); RED BLOOD COUNT 3.11 10^6/uL (4.30-6.10); WHITE BLOOD COUNT 5.5 10^3/uL (4.0-10.0)
[2020-04-05 06:00] LABS: HEMOGLOBIN 6.7 g/dl (13.5-17.5)
[2020-04-05 06:05] LABS: INR 1.25
[2020-04-05 06:06] LABS: PARTIAL THROMBOPLASTIN TIME 43.5 SECONDS (24.2-38.5)
[2020-04-05 06:08] LABS: D-DIMER QUANT 342.52 ng/ml (<500)
[2020-04-05 06:30] LABS: ALBUMIN 2.4 GM/DL (3.2-5.2); ALT/SGPT 63 U/L (12-78); BILIRUBIN,DIRECT 0.2 MG/DL (0.0-0.2); BILIRUBIN,TOTAL 0.4 MG/DL (0.2-1.0); BLOOD UREA NITROGEN 19 MG/DL (7-18); CALCIUM LEVEL 7.6 MG/DL (8.8-10.2); CARBON DIOXIDE LEVEL 25 MEQ/L (21-32); CHLORIDE LEVEL 106 MEQ/L (98-107); CREATININE FOR GFR 0.87 MG/DL (0.70-1.30); FERRITIN 28 NG/ML (26-388); GLOMERULAR FILTRATION RATE > 60.0 (>49); GLUCOSE, FASTING 210 MG/DL (70-100); IRON (FE) 8 UG/DL (65-175); LDH LACTATE DEHYDROGENASE 256 U/L (87-241); MAGNESIUM LEVEL 2.3 MG/DL (1.8-2.4); NT-PRO BNP 379 PG/ML (<125); PERCENT SATURATION 3.3 % (19.7-50.0); POTASSIUM SERUM 4.5 MEQ/L (3.5-5.1); SODIUM LEVEL 137 MEQ/L (136-145); TOTAL IRON BINDING CAPACITY 241 UG/DL (250-450); TOTAL PROTEIN 5.3 GM/DL (6.4-8.2); TRIGLYCERIDES LEVEL 53 MG/DL (<150); TROPONIN I < 0.02 NG/ML (< 0.10)
[2020-04-05] MEDS: SYMBICORT 160/4.5MCG INHALER 6GM INH SCH ×2 (08:23→21:48)
[2020-04-05] MEDS ORDERED: ASPIRIN 81 MG ENTERIC TAB PO SCH (09:00)
[2020-04-05] MEDS ORDERED: CLOPIDOGREL 75 MG TAB PO SCH (09:00)
--- NOTE | 2020-04-05 09:29 | IPNPDOC ---
Date Seen The patient was seen on 04/05/20. Progress Note SUBJECTIVE: Patient complaining of hypoxia and difficulty catching his breath after walking to the bathroom and returning back to bed last night he had no fever and says that his dyspnea resolved after a few minutes, but his oxygen had to be increased. He complains of nasal dryness with some epistaxis this morning due to continued oxygen and requested humidified oxygen and the nasal spray. Co ugh is still persistent. Not very productive enough to give a sputum sample. He continues to have dysgeusia, anosmia and decreased appetite without nausea or vomiting. Despite hemoglobin of 6.8 this morning. Patient denies bright red blood per rectum, melena. OBJECTIVE: PHYSICAL EXAMINATION: VITAL SIGNS: see below GENERAL APPEARANCE: Awake, alert, oriented 3, able to speak in full sentences without conversational dyspnea HEENT: no jvd. no icterus , no thyromegaly EOMI no cervical LAD. + moist mucus membranes CARDIOVASCULAR:S1S2 RRR. Nondisplaced point of maximal impulse LUNGS: diminished. coarse breath sounds. fine expiratory wheezes scattered. prolonged expiration ABDOMEN: soft nt nd no hsm. Obese. No fluid wave EXTREMITIES: no cyanosis, clubbing, edema LABORATORY DATA: See below. IMAGIN04/04/20 CXR PA and lateral chest 08/01/2019 and portable chest dated 03/31/2020. TECHNIQUE: Single frontal view of the chest performed portably with the patient upright. FINDINGS: There are bibasilar infiltrates, unchanged from 03/31/2020, but not present on 08/01/2019. The mid and upper lung zones remain clear. Cardiac size is normal. Samanta, mediastinum, and skeletal structures are unremarkable. IMPRESSION: Persisting bibasilar infiltrates, unchanged from 03/31/2020. <Electronically signed by Morgan Diaz > 04/04/20 1435 03/31/20CT chest with contrast Exam: CT Angiography Chest With Contrast Exam date and time: 03/31/2020 9:38 PM Age: 69 years old Clinical indication: Chest pain; Additional info: Covid positive, SOB TECHNIQUE: Imaging protocol: Computed tomographic angiography of the chest with intravenous contrast. 3D rendering (Not supervised by radiologist): MIP and/or 3D reconstructed images were created by the technologist. Radiation optimization: All CT scans at this facility use at least one of these dose optimization techniques: automated exposure control; mA and/or kV adjustment per patient size (includes targeted exams where dose is matched to clinical indication); or iterative reconstruction. Contrast material: ISO 370; Contrast volume: 75 ml; Contrast route: INTRAVENOUS (IV); COMPARISON: CR PORTABLE CHEST X-RAY 03/31/2020 8:12 PM FINDINGS: Pulmonary arteries: Normal. No pulmonary emboli. Aorta: Unremarkable. No aortic aneurysm. No aortic dissection. Lungs: Emphysematous changes. There is opacification at bilateral lung bases. Pleural space: Unremarkable. No pneumothorax. No pleural effusion. Heart: Unremarkable. No cardiomegaly. No pericardial effusion. Lymph nodes: Unremarkable. No enlarged lymph nodes. Bones/joints: Unremarkable. No acute fracture. Soft tissues: Unremarkable. IMPRESSION: Opacification at bilateral lung bases. Etiology likely infectious. Correlation with patient's COVID-19 status with lab value. Emphysematous changes. No pulmonary embolism. Electronically signed by: Jose Donald On 03/31/2020 22:16:33 PM MICROBIOLOGY: Please see below. ASSESSMENT: 69 year old male w pmh significant for CAD, asthma followed by Dr. Rubio at [facility], emphysema on CT chest, coronary stents, erectile dysfunction, dyslipidemia admitted at [facility] from 03/31/20 to 04/02/20 for asthma exacerbation, covid -19 pneumonia treated with remdesevir x2days, abx, and prednisone taper returns with CONRAD, productive cough of brownish sputum,low grade temp 100.0, headache mostly in the back of the head, dysgeusia, anosmia, nausea without vomiting or abdominal pain, worsening lowback pain than usual radiating across his back, and "struggling to breathe without oxygen" since hospital discharge on 04/02/20. He was seen by telemedicine by his primary care physician, Dr. León before coming to the ER today, when he was found to be hypoxic 87% on room air with persistent infiltrates on CXR. Hospitalist was asked to admit for acute hypoxic respiratory failure, coronaviral infection, possible HCAP, and asthma exacerbation. Acute Hypoxic Respiratory Failure 87%RA on arrival Coronavirus infection Bilateral pneumonia, possibly health-care associated due to recent admission from 03/31/20 to 04/02/20 Symptomatic anemia History of iron deficiency anemia Coronary Artery Disease with h/o coronary stents Dyslipidemia Asthma exacerbation Emphysema by CT Chest Chronic low back pain h/o hiatal hernia h/o nonbleeding internal hemorrhoids h/o nonbleeding colonic angioectasias h/o descending colonic erosions h/o anal fissures / surgery Nasal dryness and epistaxis PLAN: Transfuse 2 units RBCs today due to hemoglobin of 6.8, and symptomatic anemia. Continue with room to severe steroids, inhalers, antibiotics until scutum and blood cultures returned awaiting urine Legionella and urine streptococcal antigen. Patient is being debrided with the severe steroids. Inflammatory markers are being cycled to monitor for worsening symptoms of Covid supplemental oxygen has been given for comfort. Nasal spray humidified oxygen due to epistaxis from oxygen being given. DVT prophylaxis. If patient has Hemoccult stool positive, we'll need to stop patient's aspirin, Plavix and Lovenox VS, I&O, 24H, Fishbone Vital Signs/I&O Vital Signs Date Time Temp Pulse Resp B/P (MAP) Pulse Ox O2 Delivery O2 Flow Rate FiO2 04/05/20 04:16 98.2 75 18 115/60 (78) 95 Nasal Cannula 2.0 I&O- Last 24 Hours up to 6 AM 04/05/20 06:00 Intake Total 50 ml Balance 50 ml Laboratory Data 24H LABS Laboratory Tests 2 04/04/20 14:14: Prothrombin Time 14.8H, Prothromb Time International Ratio 1.13, Activated Partial Thromboplast Time 34.5, Fibrinogen 641H, D-Dimer, Quantitative 402.63, Urine Color YELLOW, Urine Appearance CLEAR, Urine pH 5.0, Urine Specific [place] 1.017, Urine Protein NEGATIVE, Urine Glucose (UA) NEGATIVE, Urine Ketones NEGATIVE, Urine Blood NEGATIVE, Urine Nitrite NEGATIVE, Urine Bilirubin NEGATIVE, Urine Urobilinogen 0.2, Urine Leukocyte Esterase NEGATIVE, Urine WBC (Auto) 0, Urine RBC (Auto) 0, Urine Hyaline Casts (Auto) 0, Urine Bacteria (Auto) NEGATIVE, Urine Squamous Epithelial Cells 0, Urine Sperm (Auto) , Blood Gas Bicarbonate Standard 24.8, Arterial Blood pH 7.501H, Arterial Blood Partial Pressure CO2 30.5L, Arterial Blood Partial Pressure O2 54.6L, Arterial Blood Total CO2 24.2, Arterial Blood HCO3 23.3, Arterial Blood Base Excess 0.5, My rial Blood Oxygen Saturation 88.9L, Anion Gap 6L, Glomerular Filtration Rate > 60.0, Calcium Level 8.3L, Magnesium Level 2.1, Ferritin 34, Total Bilirubin 0.5, Aspartate Amino Transf (AST/SGOT) 36, Alanine Aminotransferase (ALT/SGPT) 86H, Alkaline Phosphatase 117, Lactate Dehydrogenase 320H, Total Creatine Kinase 183, Creatine Kinase MB 2.0, Creatine Kinase MB Relative Index 1.09, Troponin I < 0.0 2, C-Reactive Protein, Quantitative 9.35H, Total Protein 6.0L, Albumin 2.9L, Albumin/Globulin Ratio 0.9 04/04/20 14:15: Immature Granulocyte % (Auto) 1.5, Neutrophils (%) (Auto) 90.1H, Lymphocytes (%) (Auto) 2.4L, Monocytes (%) (Auto) 5.9H, Eosinophils (%) (Auto) 0.0, Basophils (%) (Auto) 0.1, Neutrophils # (Auto) 9.1H, Lymphocytes # (Auto) 0.2L, Monocytes # (Auto) 0.6, Eosinophils # (Auto) 0.0, Basophils # (Auto) 0.0, Nucleated Red Blood Cells % (auto) 0.3H, Procalcitonin 0.27 04/04/20 14:16: Lactic Acid Level 1.8 04/05/20 01:06: Methicillin-Resist S.aureus DNA PCR NOT DETECTED 04/05/20 01:07: 04/05/20 05:40: Immature Granulocyte % (Auto) 1.4, Neutrophils (%) (Auto) 94.4H, Lymphocytes (%) (Auto) 2.0L, Monocytes (%) (Auto) 2.2, Eosinophils (%) (Auto) 0.0, Basophils (%) (Auto) 0.0, Neutrophils # (Auto) 5.2, Lymphocytes # (Auto) 0.1L, Monocytes # (Auto) 0.1, Eosinophils # (Auto) 0.0, Basophils # (Auto) 0.0, Reticulocyte # (auto) 39.8, Nucleated Red Blood Cells % (auto) 0.7H, Differential Slide Review Report, Peripheral Blood Smear Path Consult PERIPHERAL SMEAR, Percent Reticulocyte Count 1.3, Reticulocyte Hemoglobin Equivalent 19.1L, Prothrombin Time 16.0H, Prothromb Time International Ratio 1.25, Activated Partial Thromboplast Time 43.5H, Fibrinogen 558H, D-Dimer, Quantitative 342.52, Anion Ga p 6L, Glomerular Filtration Rate > 60.0, Calcium Level 7.6L, Magnesium Level 2.3, Iron Level 8L, Total Iron Binding Capacity 241L, Transferrin % Saturation 3.3L, Ferritin 28, Total Bilirubin 0.4, Direct Bilirubin 0.2, Aspartate Amino Transf (AST/SGOT) 19, Alanine Aminotransferase (ALT/SGPT) 63, Alkaline Phosphatase 95, Lactate Dehydrogenase 256H, Troponin I < 0.02, C-Reactive Protein, Quantitative 12.40H, OO-Tds-S-Type Natriuretic Peptide 379H, Total Protein 5.3L, Albumin 2.4L, Albumin/Globulin Ratio 0.8, Triglycerides Level 53, Procalcitonin 0.15 CBC/BMP Laboratory Tests 04/04/20 14:14 04/04/20 14:15 04/05/20 05:40 Microbiology Microbiology 04/04/20 Blood Culture, Received Pending 04/04/20 Blood Culture, Received Pending SHANNAN GONG MD Apr 05, 2020 09:29
[2020-04-05] MEDS: PANTOPRAZOLE 40MG TAB (PROTONIX) PO SCH (09:43)
[2020-04-05] MEDS: ALPRAZolam 0.5 MG TAB PO SCH ×3 (09:43→21:24)
[2020-04-05] MEDS: ENOXAPARIN 60MG/0.6ML SYRINGE (J1650 PER 10MG) SC SCH ×2 (09:44→21:23)
[2020-04-05 20:10] LABS: HEMATOCRIT 30.9 % (42.0-52.0); HEMOGLOBIN 9.2 g/dl (13.5-17.5)
[2020-04-05] MEDS: diphenhydrAMINE 25MG CAP PO SCH (21:24)
[2020-04-05] MEDS: DOCUSATE SODIUM 100MG CAPSULE PO SCH (21:24)
[2020-04-05] MEDS: ROSUVASTATIN 10 MG TAB (CRESTOR) PO SCH (21:24)
[2020-04-05] MEDS: traZODone 100 MG TAB PO SCH (21:25)
[2020-04-05] MEDS: METOPROLOL SUCC *XL* 25MG TAB (TopROL *XL*) PO SCH (21:25)
[2020-04-05] MEDS: SODIUM CHLORIDE 0.9% INJ 10 ML SYR IV SCH ×2 (21:26→23:34)
[2020-04-06] VITALS (18 sets, daily range): BP systolic 113–127; BP diastolic 56–61; O2SAT 89–95
[2020-04-06] MEDS: CEFEPIME HCL 2 GM in D5W MINI-BAG PLUS 50 ML IV SCH ×3 (02:01→17:26)
[2020-04-06] MEDS: COMBIVENT RESPIMAT 100-20MCG INHALER 4GM INH SCH ×7 (04:00→23:44)
[2020-04-06] MEDS: methylPREDNISolone 125MG 2ML VIAL IV SCH ×4 (05:13→23:43)
[2020-04-06 06:25] LABS: HEMOGLOBIN 8.5 g/dl (13.5-17.5); LYMPH # 0.2 10^3/uL (1.5-5.0); LYMPH % 2.8 % (24.0-44.0); MEAN CORPUSCULAR HEMOGLOBIN 22.5 pg (27.0-33.0); MEAN CORPUSCULAR HGB CONC 29.3 g/dl (32.0-36.5); MEAN CORPUSCULAR VOLUME 76.7 fl (80.0-96.0); MONO # 0.3 10^3/uL (0.0-0.8); MONO % 4.2 % (0.0-5.0); NEUTROPHILS # 6.9 10^3/uL (1.5-8.5); NEUTROPHILS % 91.1 % (36.0-66.0); PLATELET COUNT, AUTOMATED 317 10^3/uL (150-450); RED BLOOD COUNT 3.78 10^6/uL (4.30-6.10); WHITE BLOOD COUNT 7.5 10^3/uL (4.0-10.0)
[2020-04-06 06:38] LABS: INR 1.27; PROTHROMBIN TIME 16.2 SECONDS (12.5-14.3)
[2020-04-06 06:39] LABS: PARTIAL THROMBOPLASTIN TIME 43.4 SECONDS (24.2-38.5)
[2020-04-06 06:47] LABS: ALBUMIN 2.4 GM/DL (3.2-5.2); ALT/SGPT 63 U/L (12-78); BILIRUBIN,DIRECT 0.2 MG/DL (0.0-0.2); BILIRUBIN,TOTAL 0.5 MG/DL (0.2-1.0); BLOOD UREA NITROGEN 29 MG/DL (7-18); CALCIUM LEVEL 7.8 MG/DL (8.8-10.2); CARBON DIOXIDE LEVEL 22 MEQ/L (21-32); CHLORIDE LEVEL 108 MEQ/L (98-107); CREATININE FOR GFR 0.88 MG/DL (0.70-1.30); FERRITIN 32 NG/ML (26-388); GLOMERULAR FILTRATION RATE > 60.0 (>49); GLUCOSE, FASTING 159 MG/DL (70-100); MAGNESIUM LEVEL 2.4 MG/DL (1.8-2.4); NT-PRO BNP 645 PG/ML (<125); POTASSIUM SERUM 4.3 MEQ/L (3.5-5.1); SODIUM LEVEL 139 MEQ/L (136-145); TOTAL PROTEIN 5.1 GM/DL (6.4-8.2)
[2020-04-06] MEDS: PANTOPRAZOLE 40MG TAB (PROTONIX) PO SCH (08:00)
[2020-04-06] MEDS: ALPRAZolam 0.5 MG TAB PO SCH ×3 (08:00→21:26)
[2020-04-06] MEDS: SYMBICORT 160/4.5MCG INHALER 6GM INH SCH ×2 (08:13→21:34)
--- NOTE | 2020-04-06 09:04 | IPNPDOC ---
Date Seen The patient was seen on 04/06/20. Progress Note SUBJECTIVE: Patient has black stools. Transfuse RBCs yesterday. Complains of nasal dryness and skin breakdown in the philtrum due to oxygen despite being humidified. No fever or chills. Still short of breath with exertion. No chest pain but had some pressure this morning, which was relieved without intervention. OBJECTIVE: PHYSICAL EXAMINATION: VITAL SIGNS: see below GENERAL APPEARANCE: Able to complete his sentences without nasal flaring or tracheal deviation HEENT: No JVD. Skin breakdown in the philtrum CARDIOVASCULAR:S1S2 RRR. Nondisplaced point of maximal impulse LUNGS: diminished. Faint expiratory wheezing prolonged expiration ABDOMEN: soft nt nd no hsm. Obese. No fluid wave EXTREMITIES: no cyanosis, clubbing, edema LABORATORY DATA: See below. IMAGIN04/04/20 CXR PA and lateral chest 08/01/2019 and portable chest dated 03/31/2020. TECHNIQUE: Single frontal view of the chest performed portably with the patient upright. FINDINGS: There are bibasilar infiltrates, unchanged from 03/31/2020, but not present on 08/01/2019. The mid and upper lung zones remain clear. Cardiac size is normal. Samanta, mediastinum, and skeletal structures are unremarkable. IMPRESSION: Persisting bibasilar infiltrates, unchanged from 03/31/2020. <Electronically signed by Morgan Diaz > 04/04/20 1435 03/31/20CT chest with contrast Exam: CT Angiography Chest With Contrast Exam date and time: 03/31/2020 9:38 PM Age: 69 years old Clinical indication: Chest pain; Additional info: Covid positive, SOB TECHNIQUE: Imaging protocol: Computed tomographic angiography of the chest with intravenous contrast. 3D rendering (Not supervised by radiologist): MIP and/or 3D reconstructed images were created by the technologist. Radiation optimization: All CT scans at this facility use at least one of these dose optimization techniques: automated exposure control; mA and/or kV adjustment per patient size (includes targeted exams where dose is matched to clinical indication); or iterative reconstruction. Contrast material: ISO 370; Contrast volume: 75 ml; Contrast route: INTRAVENOUS (IV); COMPARISON: CR PORTABLE CHEST X-RAY 03/31/2020 8:12 PM FINDINGS: Pulmonary arteries: Normal. No pulmonary emboli. Aorta: Unremarkable. No aortic aneurysm. No aortic dissection. Lungs: Emphysematous changes. There is opacification at bilateral lung bases. Pleural space: Unremarkable. No pneumothorax. No pleural effusion. Heart: Unremarkable. No cardiomegaly. No pericardial effusion. Lymph nodes: Unremarkable. No enlarged lymph nodes. Bones/joints: Unremarkable. No acute fracture. Soft tissues: Unremarkable. IMPRESSION: Opacification at bilateral lung bases. Etiology likely infectious. Correlation with patient's COVID-19 status with lab value. Emphysematous changes. No pulmonary embolism. Electronically signed by: Jose Donald On 03/31/2020 22:16:33 PM MICROBIOLOGY: Please see below. ASSESSMENT: 69 year old male w pmh significant for CAD, asthma followed by Dr. Rubio at [facility], emphysema on CT chest, coronary stents, erectile dysfunction, dyslipidemia admitted at [facility] from 03/31/20 to 04/02/20 for asthma exacerbation, covid -19 pneumonia treated with remdesevir x2days, abx, and prednisone taper returns with CONRAD, productive cough of brownish sputum,low grade temp 100.0, headache mostly in the back of the head, dysgeusia, anosmia, nausea without vomiting or abdominal pain, worsening lowback pain than usual radiating across his back, and "struggling to breathe without oxygen" since hospital discharge on 04/02/20. He was seen by telemedicine by his primary care physician, Dr. León before coming to the ER today, when he was found to be hypoxic 87% on room air with persistent infiltrates on CXR. Hospitalist was asked to admit for acute hypoxic respiratory failure, coronaviral infection, possible HCAP, and asthma exacerbation. Acute Hypoxic Respiratory Failure 87%RA on arrival Coronavirus infection Bilateral pneumonia, possibly health-care associated due to recent admission from 03/31/20 to 04/02/20 Symptomatic anemia History of iron deficiency anemia Coronary Artery Disease with h/o coronary stents Dyslipidemia Asthma exacerbation Emphysema by CT Chest Chronic low back pain h/o hiatal hernia h/o nonbleeding internal hemorrhoids h/o nonbleeding colonic angioectasias h/o descending colonic erosions h/o anal fissures / surgery Nasal dryness and epistaxis PLAN: Monitor for worsening dyspnea. Cardiac markers have not percent. Continuing remdesevir x 5days, abx, inhalers, o2, and steroids. DVT prophylaxis. Supportive care. Monitor patient's H&H and possible GI bleed due to history of angioplasty ectasias. Not a clinical candidate for EGD at this time due to severe hypoxia. VS, I&O, 24H, [facility] Vital Signs/I&O Vital Signs Date Time Temp Pulse Resp B/P (MAP) Pulse Ox O2 Delivery O2 Flow Rate FiO2 04/06/20 07:59 97.4 85 18 121/60 (80) 90 Nasal Cannula 4.5 I&O- Last 24 Hours up to 6 AM 04/06/20 06:00 Intake Total 2603 ml Output Total 1020 ml Balance 1583 ml Laboratory Data 24H LABS Laboratory Tests 2 04/05/20 19:52: D-Dimer, Quantitative 398.38, C-Reactive Protein, Quantitative 11.30H 04/06/20 05:53: Immature Granulocyte % (Auto) 1.9, Neutrophils (%) (Auto) 91.1H, Lymphocytes (%) (Auto) 2.8L, Monocytes (%) (Auto) 4.2, Eosinophils (%) (Auto) 0.0, Basophils (%) (Auto) 0.0, Neutrophils # (Auto) 6.9, Lymphocytes # (Auto) 0.2L, Monocytes # (Auto) 0.3, Eosinophils # (Auto) 0.0, Basophils # (Auto) 0.0, Nucleated Red Blood Cells % (auto) 0.4H, Prothrombin Time 16.2H, Prothromb Time International Ratio 1.27, Activated Partial Thromboplast Time 43.4H, Fibrinogen 511H, Anion Gap 9, Glomerular Filtration Rate > 60.0, Calcium Level 7.8L, Magnesium Level 2.4, Ferritin 32, Total Bilirubin 0.5, Direct Bilirubin 0.2, Aspartate Amino Transf (AST/SGOT) 21, Alanine Aminotransferase (ALT/SGPT) 63, Alkaline Phosphatase 88, HM-Gvo-J-Type Natriuretic Peptide 645H, Total Protein 5.1L, Albumin 2.4L, Albumin/Globulin Ratio 0.9 CBC/BMP Laboratory Tests 04/05/20 19:52 04/06/20 05:53 Microbiology Microbiology 04/05/20 Stool Occult Blood (MONIE) - Final, Complete 04/04/20 Blood Culture - Preliminary, Resulted No growth after 24 hours . All specim... 04/04/20 Blood Culture - Preliminary, Resulted No growth after 24 hours . All specim... BELTRAN,SHANNAN C. MD Apr 06, 2020 09:04
[2020-04-06] MEDS: FUROSEMIDE 40MG/4ML VIAL (J1940) IV SCH ×2 (09:32→15:21)
[2020-04-06] MEDS: BACITRACIN OINTMENT 30GM TUBE TOP SCH ×2 (12:20→21:35)
[2020-04-06] MEDS: traZODone 100 MG TAB PO SCH (21:00)
[2020-04-06] MEDS: DOCUSATE SODIUM 100MG CAPSULE PO SCH (21:26)
[2020-04-06] MEDS: ROSUVASTATIN 10 MG TAB (CRESTOR) PO SCH (21:26)
[2020-04-06] MEDS: METOPROLOL SUCC *XL* 25MG TAB (TopROL *XL*) PO SCH (21:27)
[2020-04-06] MEDS: diphenhydrAMINE 25MG CAP PO SCH (21:35)
[2020-04-06] MEDS: SODIUM CHLORIDE 0.9% INJ 10 ML SYR IV SCH (21:36)
[2020-04-07] VITALS (17 sets, daily range): BP systolic 135–137; BP diastolic 60–65; O2SAT 88–96
[2020-04-07] MEDS: CEFEPIME HCL 2 GM in D5W MINI-BAG PLUS 50 ML IV SCH ×3 (02:09→17:33)
[2020-04-07] MEDS: COMBIVENT RESPIMAT 100-20MCG INHALER 4GM INH SCH ×5 (03:51→20:39)
[2020-04-07] MEDS: methylPREDNISolone 125MG 2ML VIAL IV SCH ×4 (05:36→22:05)
[2020-04-07 07:21] LABS: BASO % 0.1 % (0.0-1.0); HEMATOCRIT 30.9 % (42.0-52.0); HEMOGLOBIN 9.1 g/dl (13.5-17.5); LYMPH # 0.2 10^3/uL (1.5-5.0); LYMPH % 2.2 % (24.0-44.0); MEAN CORPUSCULAR HEMOGLOBIN 22.1 pg (27.0-33.0); MEAN CORPUSCULAR HGB CONC 29.4 g/dl (32.0-36.5); MEAN CORPUSCULAR VOLUME 75.2 fl (80.0-96.0); MONO # 0.5 10^3/uL (0.0-0.8); MONO % 5.5 % (0.0-5.0); NEUTROPHILS # 7.3 10^3/uL (1.5-8.5); NEUTROPHILS % 90.2 % (36.0-66.0); PLATELET COUNT, AUTOMATED 367 10^3/uL (150-450); RED BLOOD COUNT 4.11 10^6/uL (4.30-6.10); WHITE BLOOD COUNT 8.1 10^3/uL (4.0-10.0)
[2020-04-07 07:54] LABS: ALBUMIN 2.5 GM/DL (3.2-5.2); ALT/SGPT 77 U/L (12-78); BILIRUBIN,DIRECT 0.3 MG/DL (0.0-0.2); BILIRUBIN,TOTAL 0.6 MG/DL (0.2-1.0); BLOOD UREA NITROGEN 39 MG/DL (7-18); CALCIUM LEVEL 7.9 MG/DL (8.8-10.2); CARBON DIOXIDE LEVEL 27 MEQ/L (21-32); CHLORIDE LEVEL 107 MEQ/L (98-107); CREATININE FOR GFR 0.95 MG/DL (0.70-1.30); FERRITIN 34 NG/ML (26-388); GLOMERULAR FILTRATION RATE > 60.0 (>49); GLUCOSE, FASTING 156 MG/DL (70-100); MAGNESIUM LEVEL 2.5 MG/DL (1.8-2.4); POTASSIUM SERUM 4.1 MEQ/L (3.5-5.1); SODIUM LEVEL 140 MEQ/L (136-145); TOTAL PROTEIN 5.4 GM/DL (6.4-8.2)
[2020-04-07 07:55] LABS: D-DIMER QUANT 560.09 ng/ml (<500)
[2020-04-07] MEDS: PANTOPRAZOLE 40MG TAB (PROTONIX) PO SCH (08:15)
[2020-04-07] MEDS: BACITRACIN OINTMENT 30GM TUBE TOP SCH ×2 (08:15→20:39)
[2020-04-07] MEDS: ALPRAZolam 0.5 MG TAB PO SCH (08:15)
[2020-04-07 08:18] LABS: ERYTHROCYTE SEDIMENTATION RATE 32 mm/hr (0-20)
[2020-04-07] MEDS: SYMBICORT 160/4.5MCG INHALER 6GM INH SCH ×2 (08:28→20:39)
[2020-04-07 08:33] LABS: CK-MB VALUE MASS 1.6 NG/ML (<3.6); CPK CREATINE PHOSPHOKINASE 99 U/L (39-308); LDH LACTATE DEHYDROGENASE 289 U/L (87-241); MB/CK RELATIVE INDEX 1.62 (< OR =4); TROPONIN I < 0.02 NG/ML (< 0.10)
[2020-04-07] MEDS ORDERED: ALPRAZolam 0.5 MG TAB PO ONE (08:45)
--- NOTE | 2020-04-07 10:29 | IPNPDOC ---
Date Seen The patient was seen on 04/07/20. Progress Note SUBJECTIVE: Despite receiving Xanax 3 times a day and trazodone daily at bedtime. Patient continues to complain of severe anxiety and inability to sleep. Shortness of breath is at baseline. He continues to have dyspnea on exertion and currently on a Ventimask, not not because of worsening hypoxemia, but because of irritation from nasal cannula with skin breakdown in the philtrum. Cough is much improved, not thick and yellow, brown,but thin and serous appearing. No fever, chills overnight OBJECTIVE: PHYSICAL EXAMINATION: VITAL SIGNS: see below GENERAL APPEARANCE: Able to complete his sentences without nasal flaring or tracheal deviation HEENT: No JVD. Skin breakdown in the philtrum CARDIOVASCULAR:S1S2 RRR. Nondisplaced point of maximal impulse LUNGS: diminished. Faint expiratory wheezing prolonged expiration ABDOMEN: soft nt nd no hsm. Obese. No fluid wave EXTREMITIES: no cyanosis, clubbing, edema LABORATORY DATA: See below. IMAGIN04/04/20 CXR PA and lateral chest 08/01/2019 and portable chest dated 03/31/2020. TECHNIQUE: Single frontal view of the chest performed portably with the patient upright. FINDINGS: There are bibasilar infiltrates, unchanged from 03/31/2020, but not present on 08/01/2019. The mid and upper lung zones remain clear. Cardiac size is normal. Samanta, mediastinum, and skeletal structures are unremarkable. IMPRESSION: Persisting bibasilar infiltrates, unchanged from 03/31/2020. <Electronically signed by Morgan Diaz > 04/04/20 1435 03/31/20CT chest with contrast Exam: CT Angiography Chest With Contrast Exam date and time: 03/31/2020 9:38 PM Age: 69 years old Clinical indication: Chest pain; Additional info: Covid positive, SOB TECHNIQUE: Imaging protocol: Computed tomographic angiography of the chest with intravenous contrast. 3D rendering (Not supervised by radiologist): MIP and/or 3D reconstructed images were created by the technologist. Radiation optimization: All CT scans at this facility use at least one of these dose optimization techniques: automated exposure control; mA and/or kV adjustment per patient size (includes targeted exams where dose is matched to clinical indication); or iterative reconstruction. Contrast material: ISO 370; Contrast volume: 75 ml; Contrast route: INTRAVENOUS (IV); COMPARISON: CR PORTABLE CHEST X-RAY 03/31/2020 8:12 PM FINDINGS: Pulmonary arteries: Normal. No pulmonary emboli. Aorta: Unremarkable. No aortic aneurysm. No aortic dissection. Lungs: Emphysematous changes. There is opacification at bilateral lung bases. Pleural space: Unremarkable. No pneumothorax. No pleural effusion. Heart: Unremarkable. No cardiomegaly. No pericardial effusion. Lymph nodes: Unremarkable. No enlarged lymph nodes. Bones/joints: Unremarkable. No acute fracture. Soft tissues: Unremarkable. IMPRESSION: Opacification at bilateral lung bases. Etiology likely infectious. Correlation with patient's COVID-19 status with lab value. Emphysematous changes. No pulmonary embolism. Electronically signed by: Jose Donald On 03/31/2020 22:16:33 PM MICROBIOLOGY: Please see below. ASSESSMENT: 69 year old male w pmh significant for CAD, asthma followed by Dr. Rubio at [facility], emphysema on CT chest, coronary stents, erectile dysfunction, dyslipidemia admitted at [facility] from 03/31/20 to 04/02/20 for asthma exacerbation, covid -19 pneumonia treated with remdesevir x2days, abx, and prednisone taper returns with CONRAD, productive cough of brownish sputum,low grade temp 100.0, headache mostly in the back of the head, dysgeusia, anosmia, nausea without vomiting or abdominal pain, worsening lowback pain than usual radiating across his back, and "struggling to breathe without oxygen" since hospital discharge on 04/02/20. He was seen by telemedicine by his primary care physician, Dr. León before coming to the ER today, when he was found to be hypoxic 87% on room air with persistent infiltrates on CXR. Hospitalist was asked to admit for acute hypoxic respiratory failure, coronaviral infection, possible HCAP, and asthma exacerbation. Acute Hypoxic Respiratory Failure 87%RA on arrival Coronavirus infection Bilateral pneumonia, possibly health-care associated due to recent admission from 03/31/20 to 04/02/20 Symptomatic anemia History of iron deficiency anemia Coronary Artery Disease with h/o coronary stents Dyslipidemia Asthma exacerbation Emphysema by CT Chest Chronic low back pain h/o hiatal hernia h/o nonbleeding internal hemorrhoids h/o nonbleeding colonic angioectasias h/o descending colonic erosions h/o anal fissures / surgery Nasal dryness and epistaxis PLAN: . Continue monitoring inflammatory markers complete 5 days of remdesevir. keep on high-dose steroids. DVT prophylaxis and intravenous. Cefepime. MRSA was negative and vancomycin has been discontinued. Supplemental oxygen until patient's hypoxemia improves. If patient develops worsening inflammatory markers indicating severe coronavirus infection and possible ARDS. We'll need to transfer to ICU for prone positioning and possible Ventilatory support. VS, I&O, 24H, [facility] Vital Signs/I&O Vital Signs Date Time Temp Pulse Resp B/P (MAP) Pulse Ox O2 Delivery O2 Flow Rate FiO2 04/07/20 09:00 93 Venturi Mask 12.0 35 04/07/20 08:00 97.8 87 18 136/65 (88) I&O- Last 24 Hours up to 6 AM 04/07/20 06:00 Intake Total 2080 ml Output Total 3850 ml Balance -1770 ml Laboratory Data 24H LABS Laboratory Tests 2 04/06/20 16:06: C-Reactive Protein, Quantitative 6.75H 04/07/20 06:44: C-Reactive Protein, Quantitative 3.90H, Immature Granulocyte % (Auto) 2.0, Neutrophils (%) (Auto) 90.2H, Lymphocytes (%) (Auto) 2.2L, Monocytes (%) (Auto) 5.5H, Eosinophils (%) (Auto) 0.0, Basophils (%) (Auto) 0.1, Neutrophils # (Auto) 7.3, Lymphocytes # (Auto) 0.2L, Monocytes # (Auto) 0.5, Eosinophils # (Auto) 0 .0, Basophils # (Auto) 0.0, Nucleated Red Blood Cells % (auto) 0.2H, Erythrocyte Sedimentation Rate 32H, Fibrinogen 449, D-Dimer, Quantitative 560.09H, Anion Gap 6L, Glomerular Filtration Rate > 60.0, Calcium Level 7.9L, Magnesium Level 2.5H, Ferritin 34, Total Bilirubin 0.6, Direct Bilirubin 0.3H, Aspartate Amino Transf (AST/SGOT) 24, Alanine Aminotransferase (ALT/SGPT) 77, Alkaline Phosphatase 84, Lactate Dehydrogenase 289H, Total Creatine Kinase 99, Creatine Kinase MB 1.6, Creatine Kinase MB Relative Index 1.62, Troponin I < 0.02, Total Protein 5.4L, Albumin 2.5L, Albumin/Globulin Ratio 0.9 CBC/BMP Laboratory Tests 04/07/20 06:44 Microbiology Microbiology 04/05/20 Stool Occult Blood (MONIE) - Final, Complete 04/04/20 Blood Culture - Preliminary, Resulted No Growth after 48 hours. All Specime... 04/04/20 Blood Culture - Preliminary, Resulted No Growth after 48 hours. All Specime... SHANNAN GONG MD Apr 07, 2020 10:24
[2020-04-07] MEDS: ALPRAZolam 0.5 MG TAB PO PRN ×3 (13:08→22:05)
[2020-04-07] MEDS: DOCUSATE SODIUM 100MG CAPSULE PO SCH (20:36)
[2020-04-07] MEDS: ROSUVASTATIN 10 MG TAB (CRESTOR) PO SCH (20:36)
[2020-04-07] MEDS: diphenhydrAMINE 25MG CAP PO SCH (20:37)
[2020-04-07] MEDS: traZODone 100 MG TAB PO SCH (20:37)
[2020-04-07] MEDS: METOPROLOL SUCC *XL* 25MG TAB (TopROL *XL*) PO SCH (20:38)
[2020-04-07] MEDS: SODIUM CHLORIDE 0.9% INJ 10 ML SYR IV SCH (22:05)
[2020-04-08] VITALS (26 sets, daily range): BP systolic 130–143; BP diastolic 62–76; O2SAT 86–97
[2020-04-08] MEDS: CEFEPIME HCL 2 GM in D5W MINI-BAG PLUS 50 ML IV SCH ×2 (02:42→09:37)
[2020-04-08] MEDS: ALPRAZolam 0.5 MG TAB PO PRN ×4 (03:22→22:51)
[2020-04-08] MEDS: COMBIVENT RESPIMAT 100-20MCG INHALER 4GM INH SCH ×6 (04:00→19:20)
[2020-04-08] MEDS: methylPREDNISolone 125MG 2ML VIAL IV SCH ×3 (05:51→16:00)
[2020-04-08 07:12] LABS: BASO % 0.1 % (0.0-1.0); HEMATOCRIT 31.4 % (42.0-52.0); HEMOGLOBIN 9.1 g/dl (13.5-17.5); LYMPH # 0.2 10^3/uL (1.5-5.0); LYMPH % 2.9 % (24.0-44.0); MEAN CORPUSCULAR HEMOGLOBIN 22.2 pg (27.0-33.0); MEAN CORPUSCULAR VOLUME 76.6 fl (80.0-96.0); MONO # 0.5 10^3/uL (0.0-0.8); NEUTROPHILS # 6.4 10^3/uL (1.5-8.5); NEUTROPHILS % 88.1 % (36.0-66.0); PLATELET COUNT, AUTOMATED 323 10^3/uL (150-450); WHITE BLOOD COUNT 7.3 10^3/uL (4.0-10.0)
[2020-04-08] MEDS: SYMBICORT 160/4.5MCG INHALER 6GM INH SCH ×2 (07:29→19:20)
[2020-04-08 07:45] LABS: ALBUMIN 2.5 GM/DL (3.2-5.2); ALT/SGPT 93 U/L (12-78); BILIRUBIN,DIRECT 0.3 MG/DL (0.0-0.2); BILIRUBIN,TOTAL 0.5 MG/DL (0.2-1.0); BLOOD UREA NITROGEN 37 MG/DL (7-18); CALCIUM LEVEL 8.1 MG/DL (8.8-10.2); CARBON DIOXIDE LEVEL 27 MEQ/L (21-32); CHLORIDE LEVEL 109 MEQ/L (98-107); CREATININE FOR GFR 0.91 MG/DL (0.70-1.30); FERRITIN 36 NG/ML (26-388); GLOMERULAR FILTRATION RATE > 60.0 (>49); GLUCOSE, FASTING 133 MG/DL (70-100); MAGNESIUM LEVEL 2.8 MG/DL (1.8-2.4); NT-PRO BNP 267 PG/ML (<125); POTASSIUM SERUM 4.6 MEQ/L (3.5-5.1); SODIUM LEVEL 140 MEQ/L (136-145); TOTAL PROTEIN 5.5 GM/DL (6.4-8.2)
--- NOTE | 2020-04-08 08:12 | REP ---
INDICATION: hypoxia. COMPARISON: 04/04/2020. TECHNIQUE: Single AP view of the chest performed portably with the patient sitting. FINDINGS: The bibasilar infiltrates have improved but are not yet resolved. The mid and upper lung zones are clear. Cardiac size normal. There are no pleural effusions. IMPRESSION: The bibasilar infiltrates have improved. <Electronically signed by Morgan Diaz > 04/08/20 0812
--- NOTE | 2020-04-08 08:43 | IPNPDOC ---
Date Seen The patient was seen on 04/08/20. Progress Note SUBJECTIVE: on ventimask due to PATIENT PREFERENCE DUE TO IRRITATION WITH NASAL CANNULA, and NOT DUE TO worsening hypoxia. SOB is improved. CONRAD is persistent. denies pleuritic chest pain. cough is improved with serous sputum now, and not thick and yellow-brown as what he had on admission and at home. no fever. no n/v. still w decreased appetite, dysgeusia, and anosmia. no diarrhea despite broad spectrum abx. MRSA negative and vancomycin discontinued. OBJECTIVE: PHYSICAL EXAMINATION: VITAL SIGNS: see below GENERAL APPEARANCE: no distress when sitting at the side of the bed. no nasal flaring pallor or cyanosis.ventimask HEENT: No JVD. Skin breakdown in the philtrum no tracheal deviation CARDIOVASCULAR:S1S2 RRR. Nondisplaced point of maximal impulse LUNGS: diminished, but improved air entry. prolonged expiration . fine crackles b/l ABDOMEN: soft nt nd no hsm. Obese. No fluid wave EXTREMITIES: no cyanosis, clubbing, edema LABORATORY DATA: See below. IMAGIN04/04/20 CXR PA and lateral chest 08/01/2019 and portable chest dated 03/31/2020. TECHNIQUE: Single frontal view of the chest performed portably with the patient upright. FINDINGS: There are bibasilar infiltrates, unchanged from 03/31/2020, but not present on 08/01/2019. The mid and upper lung zones remain clear. Cardiac size is normal. Samanta, mediastinum, and skeletal structures are unremarkable. IMPRESSION: Persisting bibasilar infiltrates, unchanged from 03/31/2020. <Electronically signed by Morgan Diaz > 04/04/20 1435 03/31/20CT chest with contrast Exam: CT Angiography Chest With Contrast Exam date and time: 03/31/2020 9:38 PM Age: 69 years old Clinical indication: Chest pain; Additional info: Covid positive, SOB TECHNIQUE: Imaging protocol: Computed tomographic angiography of the chest with intravenous contrast. 3D rendering (Not supervised by radiologist): MIP and/or 3D reconstructed images were created by the technologist. Radiation optimization: All CT scans at this facility use at least one of these dose optimization techniques: automated exposure control; mA and/or kV adjustment per patient size (includes targeted exams where dose is matched to clinical indication); or iterative reconstruction. Contrast material: ISO 370; Contrast volume: 75 ml; Contrast route: INTRAVENOUS (IV); COMPARISON: CR PORTABLE CHEST X-RAY 03/31/2020 8:12 PM FINDINGS: Pulmonary arteries: Normal. No pulmonary emboli. Aorta: Unremarkable. No aortic aneurysm. No aortic dissection. Lungs: Emphysematous changes. There is opacification at bilateral lung bases. Pleural space: Unremarkable. No pneumothorax. No pleural effusion. Heart: Unremarkable. No cardiomegaly. No pericardial effusion. Lymph nodes: Unremarkable. No enlarged lymph nodes. Bones/joints: Unremarkable. No acute fracture. Soft tissues: Unremarkable. IMPRESSION: Opacification at bilateral lung bases. Etiology likely infectious. Correlation with patient's COVID-19 status with lab value. Emphysematous changes. No pulmonary embolism. Electronically signed by: Jose Donald On 03/31/2020 22:16:33 PM MICROBIOLOGY: Please see below. ASSESSMENT: 69 year old male w pmh significant for CAD, asthma followed by Dr. Rubio at pulmonary [facility], emphysema on CT chest, coronary stents, erectile dysfunction, dyslipidemia admitted at [facility] from 03/31/20 to 04/02/20 for asthma exacerbation, covid -19 pneumonia treated with remdesevir x2days, abx, and prednisone taper returns with CONRAD, productive cough of brownish sputum,low grade temp 100.0, headache mostly in the back of the head, dysgeusia, anosmia, nausea without vomiting or abdominal pain, worsening lowback pain than usual radiating across his back, and "struggling to breathe without oxygen" since hospital discharge on 04/02/20. He was seen by telemedicine by his primary care physician, Dr. León before coming to the ER today, when he was found to be hypoxic 87% on room air with persistent infiltrates on CXR. Hospitalist was asked to admit for acute hypoxic respiratory failure, coronaviral infection, possible HCAP, and asthma exacerbation. Acute Hypoxic Respiratory Failure 87%RA on arrival -on facemask DUE TO patient's preference. Pt had irritation with skin breakdown w nasal cannula -treating for HCAP and to complete 5days of coronavirus remdesevir -improving inflammatory markers. Coronavirus infection -to complete 5 days of remdesevir -afebrile -still needing o2, but change to facemask was for patient preference. Bilateral pneumonia, health-care associated due to recent admission from 03/31/20 to 04/02/20 -vanco discontinued due to negative MRSA -on iv cefepime to complete 7days course -no fever Symptomatic anemia -s/p rbc transfusion -black stools at baseline. -stable h&h after rbc transfusion -not medically stable for endoscopy due to hypoxia and ongoing lung infection -on PPI and carafate. History of iron deficiency anemia -needed rbc transfusion due to symptoms Coronary Artery Disease with h/o coronary stents -keep antiplatelets for now unless overt GI bleed with decreasing h&h Dyslipidemia -on statin Asthma exacerbation -improved sob with iv steroids and abx -continue inhalers and supplemental oxygen until hypoxia resolves Emphysema by CT Chest -chronic Chronic low back pain -resumed on pain meds h/o hiatal hernia -on PPI h/o nonbleeding internal hemorrhoids h/o nonbleeding colonic angioectasias h/o descending colonic erosions h/o anal fissures -had symptomatic anemia requiring rbc transfusion -h&h remains stable w/o recurrent need to transfuse -not medically stable to undergo endoscopy due to respiratory issues Nasal dryness and epistaxis/skin breakdown on philtrum -due to nasal cannula. humidified oxygen and ventimask for PATIENT COMFORT. DISPOSITION: to complete 7days of iv antibiotics, pending clinical improvement, and tapering dose of steroids. VS, I&O, 24H, [facility] Vital Signs/I&O Vital Signs Date Time Temp Pulse Resp B/P (MAP) Pulse Ox O2 Delivery O2 Flow Rate FiO2 04/08/20 06:00 94 Venturi Mask 15.0 40 04/08/20 04:00 98.2 70 18 132/76 (94) I&O- Last 24 Hours up to 6 AM 04/08/20 06:00 Intake Total 1540 ml Output Total 750 ml Balance 790 ml Laboratory Data 24H LABS Laboratory Tests 2 04/07/20 16:23: D-Dimer, Quantitative 402.63, C-Reactive Protein, Quantitative 2.97H 04/08/20 06:51: Immature Granulocyte % (Auto) 1.9, Neutrophils (%) (Auto) 88.1H, Lymphocytes (%) (Auto) 2.9L, Monocytes (%) (Auto) 7.0H, Eosinophils (%) (Auto) 0.0, Basophils (%) (Auto) 0.1, Neutrophils # (Auto) 6.4, Lymphocytes # (Auto) 0.2L, Monocytes # (Auto) 0.5, Eosinophils # (Auto) 0.0, Basophils # (Auto) 0.0, Nucleated Red Blood Cells % (auto) 0.3H, Fibrinogen 318, Anion Gap 4L, Glomerular Filtration Rate > 60.0, Calcium Level 8.1L, Magnesium Level 2.8H, Ferritin 36, Total Bilirubin 0.5, Direct Bilirubin 0.3H, Aspartate Amino Transf (AST/SGOT) 31, Alanine Aminotransferase (ALT/SGPT) 93H, Alkaline Phosphatase 82, MF-Fue-M-Type Natriuretic Peptide 267H, Total Protein 5.5L, Albumin 2.5L, Albumin/Globulin Ratio 0.8 CBC/BMP Laboratory Tests 04/08/20 06:51 Microbiology Microbiology 04/05/20 Stool Occult Blood (MONIE) - Final, Complete 04/04/20 Blood Culture - Preliminary, Resulted No Growth after 72 hours. All specime... 04/04/20 Blood Culture - Preliminary, Resulted No Growth after 72 hours. All specime... SHANNAN GONG MD Apr 08, 2020 08:43
[2020-04-08] MEDS: PANTOPRAZOLE 40MG TAB (PROTONIX) PO SCH (09:38)
[2020-04-08] MEDS: BACITRACIN OINTMENT 30GM TUBE TOP SCH ×2 (09:38→22:54)
[2020-04-08] MEDS: LevoFLOXacin 750 MG TABLET PO SCH (12:51)
[2020-04-08 16:08] LABS: BODY FLUID CULTURE Not indicated. (.); LEGIONELLA ANTIGEN URINE Negative (Negative); ORGANISM ID Not indicated. (.); SPECIMEN SOURCE Urine (.); URINE STREP PNEUMONIAE ANTIGEN Negative (Negative)
[2020-04-08] MEDS: diphenhydrAMINE 25MG CAP PO SCH (22:50)
[2020-04-08] MEDS: ROSUVASTATIN 10 MG TAB (CRESTOR) PO SCH (22:51)
[2020-04-08] MEDS: DOCUSATE SODIUM 100MG CAPSULE PO SCH (22:51)
[2020-04-08] MEDS: traZODone 100 MG TAB PO SCH (22:51)
[2020-04-08] MEDS: SODIUM CHLORIDE 0.9% INJ 10 ML SYR IV SCH (22:53)
[2020-04-08] MEDS: METOPROLOL SUCC *XL* 25MG TAB (TopROL *XL*) PO SCH (22:56)
[2020-04-09] VITALS (10 sets, daily range): BP systolic 118–146; BP diastolic 58–87; O2SAT 90–95
[2020-04-09] MEDS: methylPREDNISolone 125MG 2ML VIAL IV SCH ×4 (01:02→20:37)
[2020-04-09] MEDS: COMBIVENT RESPIMAT 100-20MCG INHALER 4GM INH SCH ×7 (01:02→23:32)
[2020-04-09] MEDS: ALPRAZolam 0.5 MG TAB PO PRN ×5 (05:34→23:31)
[2020-04-09] MEDS: LevoFLOXacin 750 MG TABLET PO SCH (05:34)
[2020-04-09 06:21] LABS: BASO % 0.1 % (0.0-1.0); HEMATOCRIT 30.2 % (42.0-52.0); HEMOGLOBIN 8.7 g/dl (13.5-17.5); LYMPH # 0.2 10^3/uL (1.5-5.0); LYMPH % 2.2 % (24.0-44.0); MEAN CORPUSCULAR HGB CONC 28.8 g/dl (32.0-36.5); MEAN CORPUSCULAR VOLUME 76.5 fl (80.0-96.0); MONO # 0.4 10^3/uL (0.0-0.8); NEUTROPHILS # 7.3 10^3/uL (1.5-8.5); NEUTROPHILS % 90.7 % (36.0-66.0); PLATELET COUNT, AUTOMATED 304 10^3/uL (150-450); RED BLOOD COUNT 3.95 10^6/uL (4.30-6.10); WHITE BLOOD COUNT 8.1 10^3/uL (4.0-10.0)
[2020-04-09 06:45] LABS: ALBUMIN 2.2 GM/DL (3.2-5.2); ALT/SGPT 78 U/L (12-78); BILIRUBIN,DIRECT 0.2 MG/DL (0.0-0.2); BILIRUBIN,TOTAL 0.4 MG/DL (0.2-1.0); BLOOD UREA NITROGEN 32 MG/DL (7-18); CALCIUM LEVEL 7.3 MG/DL (8.8-10.2); CARBON DIOXIDE LEVEL 25 MEQ/L (21-32); CHLORIDE LEVEL 108 MEQ/L (98-107); CREATININE FOR GFR 0.83 MG/DL (0.70-1.30); FERRITIN 25 NG/ML (26-388); GLOMERULAR FILTRATION RATE > 60.0 (>49); GLUCOSE, FASTING 162 MG/DL (70-100); MAGNESIUM LEVEL 2.5 MG/DL (1.8-2.4); NT-PRO BNP 237 PG/ML (<125); POTASSIUM SERUM 4.5 MEQ/L (3.5-5.1); SODIUM LEVEL 136 MEQ/L (136-145); TOTAL PROTEIN 5.3 GM/DL (6.4-8.2)
[2020-04-09] MEDS: BACITRACIN OINTMENT 30GM TUBE TOP SCH ×2 (09:01→20:38)
[2020-04-09] MEDS: PANTOPRAZOLE 40MG TAB (PROTONIX) PO SCH (09:01)
[2020-04-09] MEDS: SYMBICORT 160/4.5MCG INHALER 6GM INH SCH ×2 (11:41→20:36)
[2020-04-09] MEDS: DOCUSATE SODIUM 100MG CAPSULE PO SCH (20:36)
[2020-04-09] MEDS: traZODone 100 MG TAB PO SCH (20:36)
[2020-04-09] MEDS: ROSUVASTATIN 10 MG TAB (CRESTOR) PO SCH (20:37)
[2020-04-09] MEDS: METOPROLOL SUCC *XL* 25MG TAB (TopROL *XL*) PO SCH (20:37)
[2020-04-09] MEDS: diphenhydrAMINE 25MG CAP PO SCH (20:39)
[2020-04-09] MEDS ORDERED: PILL CUTTER 1 EACH XX PRN (20:45)
--- NOTE | 2020-04-09 22:36 | IPNPDOC ---
Text Note Date of Service The patient was seen on 04/09/20. NOTE SUBJECTIVE: On ventimask due to PATIENT PREFERENCE DUE TO IRRITATION WITH NASAL CANNULA, and NOT DUE TO worsening hypoxia. SOB is improved. CONRAD is persistent. denies pleuritic chest pain. Cough is improved with brownish sputum, and not thick and yellow-brown as what he had on admission and at home. no fever. no n/v. still w decreased appetite, dysgeusia, and anosmia. no diarrhea PHYSICAL EXAMINATION: VITAL SIGNS: see below GENERAL APPEARANCE: no distress when sitting at the side of the bed. No conversational dyspnea. no nasal flaring pallor or cyanosis.ventimask HEENT: NC, AT, moist mucous membranes. Neck: No JVD. no tracheal deviation CARDIOVASCULAR: S1S2 RRR. Nondisplaced point of maximal impulse, no murmur or rub or gallop LUNGS: diminished, prolonged expiration . fine crackles b/l ABDOMEN: soft nt nd no hsm. Obese. No fluid wave EXTREMITIES: no cyanosis, clubbing, edema LABORATORY DATA: See below. IMAGIN04/04/20 CXR Persisting bibasilar infiltrates, unchanged from 03/31/2020. 03/31/20CT chest with contrast Opacification at bilateral lung bases. Etiology likely infectious. Correlation with patient's COVID-19 status with lab value. Emphysematous changes. No pulmonary embolism. ASSESSMENT and PLAN: 69 year old male with pmh significant for CAD/ stents, Chronic asthma followed by Dr. Rubio at [facility], emphysema on CT chest, erectile dysfunction, dyslipidemia admitted at [facility] from 03/31/20 to 04/02/20 for asthma exacerbation, covid -19 pneumonia treated with remdesevir x2days, abx, and prednisone taper and discharged returns with CONRAD, productive cough of brownish sputum,low grade temp 100.0, headache mostly in the back of the head, dysgeusia, anosmia, nausea without vomiting or abdominal pain, worsening low back pain than usual radiating across his back, and "struggling to breathe without oxygen" since hospital discharge on 04/02/20. He was seen by telemedicine by his primary care physician, Dr. León before coming to the ER today, when he was found to be hypoxic 87% on room air with persistent infiltrates on CXR. Patient was admitted for acute hypoxic respiratory failure, coronaviral infection, possible HCAP, and asthma exacerbation. Acute Hypoxic Respiratory Failure 87%RA on arrival -on facemask DUE TO patient's preference. Pt had irritation with skin breakdown w nasal cannula -treating for HCAP and to complete 5 days of coronavirus remdesevir -improving inflammatory markers. Coronavirus infection diagnosed on 03/28/20 finished remdesevir, on steroids afebrile still needing o2, but change to facemask was for patient preference. Bilateral pneumonia, health-care associated due to recent admission from 03/31/20 to 04/02/20 -vanco discontinued due to negative MRSA -on iv cefepime finished 4 days then switched to levofloxacin. -no fever Anemia acute on chronic blood loss anemia stool for occult blood positive, h/o nonbleeding internal hemorrhoids h/o nonbleeding colonic angioectasias h/o descending colonic erosions h/o anal fissures had symptomatic anemia requiring rbc transfusion Ferritin has been low. not medically stable for endoscopy due to hypoxia and COVID. on PPI History of iron deficiency anemia needed rbc transfusion due to symptoms Coronary Artery Disease with h/o coronary stents Has been off antiplatelets since admission due to suspicion for GIB. Now Hb seems to be stable. will restart ASA and Plavix Dyslipidemia on statin Asthma exacerbation improved sob with iv steroids and abx continue inhalers and supplemental oxygen until hypoxia resolves will start tapering steroids. Emphysema by CT Chest chronic Chronic low back pain resumed on pain meds h/o hiatal hernia on PPI Anxiety on alprazolam. Nasal dryness and epistaxis/skin breakdown on philtrum due to nasal cannula. humidified oxygen and ventimask for PATIENT COMFORT. DVT prophylaxis: mechanical. VS,Fishbone, I+O VS, Fishbone, I+O Laboratory Tests 04/09/20 05:37 Vital Signs Date Time Temp Pulse Resp B/P (MAP) Pulse Ox O2 Delivery O2 Flow Rate FiO2 04/09/20 20:37 69 118/87 04/09/20 20:00 98.8 20 92 Venturi Mask 12.0 35 l I&O- Last 24 Hours up to 6 AM 04/09/20 07:00 Intake Total 1350 ml Output Total 1050 ml Balance 300 ml CHERELLE STONE MD Apr 09, 2020 22:36
[2020-04-10] VITALS (9 sets, daily range): BP systolic 123–145; BP diastolic 64–71; O2SAT 91–96
[2020-04-10] MEDS: COMBIVENT RESPIMAT 100-20MCG INHALER 4GM INH SCH ×5 (03:14→19:57)
[2020-04-10] MEDS: LevoFLOXacin 750 MG TABLET PO SCH (05:20)
[2020-04-10] MEDS: methylPREDNISolone 125MG 2ML VIAL IV SCH (05:21)
[2020-04-10 06:11] LABS: BASO % 0.2 % (0.0-1.0); EOS % 0.2 % (0.0-3.0); HEMATOCRIT 33.8 % (42.0-52.0); HEMOGLOBIN 9.7 g/dl (13.5-17.5); LYMPH # 0.5 10^3/uL (1.5-5.0); LYMPH % 3.8 % (24.0-44.0); MEAN CORPUSCULAR HEMOGLOBIN 21.8 pg (27.0-33.0); MEAN CORPUSCULAR HGB CONC 28.7 g/dl (32.0-36.5); MEAN CORPUSCULAR VOLUME 76.1 fl (80.0-96.0); MONO # 0.7 10^3/uL (0.0-0.8); MONO % 5.4 % (0.0-5.0); NEUTROPHILS # 10.8 10^3/uL (1.5-8.5); NEUTROPHILS % 88.8 % (36.0-66.0); PLATELET COUNT, AUTOMATED 340 10^3/uL (150-450); RED BLOOD COUNT 4.44 10^6/uL (4.30-6.10); WHITE BLOOD COUNT 12.2 10^3/uL (4.0-10.0)
[2020-04-10 06:35] LABS: BLOOD UREA NITROGEN 28 MG/DL (7-18); CARBON DIOXIDE LEVEL 27 MEQ/L (21-32); CHLORIDE LEVEL 106 MEQ/L (98-107); CREATININE FOR GFR 0.86 MG/DL (0.70-1.30); GLOMERULAR FILTRATION RATE > 60.0 (>49); GLUCOSE, FASTING 80 MG/DL (70-100); POTASSIUM SERUM 4.2 MEQ/L (3.5-5.1); SODIUM LEVEL 137 MEQ/L (136-145)
[2020-04-10] MEDS: SUCRALFATE 1 GM TAB PO SCH ×4 (08:42→20:00)
[2020-04-10] MEDS: ALPRAZolam 0.5 MG TAB PO PRN ×3 (08:43→21:57)
[2020-04-10] MEDS: SYMBICORT 160/4.5MCG INHALER 6GM INH SCH ×2 (08:44→19:57)
[2020-04-10] MEDS: PANTOPRAZOLE 40MG TAB (PROTONIX) PO SCH ×2 (08:44→20:00)
[2020-04-10] MEDS: ASPIRIN 81 MG ENTERIC TAB PO SCH (08:51)
[2020-04-10] MEDS: BACITRACIN OINTMENT 30GM TUBE TOP SCH ×2 (08:51→20:00)
[2020-04-10] MEDS ORDERED: CLOPIDOGREL 75 MG TAB PO SCH (09:00)
[2020-04-10 10:28] LABS: FOLATE 14.7 NG/ML (>5.4)
[2020-04-10] MEDS: methylPREDNISolone 40MG 1ML VIAL IV SCH ×2 (12:49→20:00)
[2020-04-10] MEDS: DOCUSATE SODIUM 100MG CAPSULE PO SCH (19:58)
[2020-04-10] MEDS: diphenhydrAMINE 25MG CAP PO SCH (19:58)
[2020-04-10] MEDS: METOPROLOL SUCC *XL* 25MG TAB (TopROL *XL*) PO SCH (19:59)
[2020-04-10] MEDS: ROSUVASTATIN 10 MG TAB (CRESTOR) PO SCH (20:00)
[2020-04-10] MEDS: traZODone 100 MG TAB PO SCH (20:00)
[2020-04-11] MEDS: COMBIVENT RESPIMAT 100-20MCG INHALER 4GM INH SCH ×6 (03:36→19:51)
[2020-04-11 04:16] VITALS: BP 147/72
[2020-04-11] MEDS: ALPRAZolam 0.5 MG TAB PO PRN ×4 (04:37→21:57)
[2020-04-11] MEDS: LevoFLOXacin 750 MG TABLET PO SCH (05:19)
[2020-04-11] MEDS: methylPREDNISolone 40MG 1ML VIAL IV SCH ×2 (05:19→16:29)
--- NOTE | 2020-04-11 06:39 | IPNPDOC ---
Text Note Date of Service The patient was seen on 04/10/20. NOTE SUBJECTIVE: Hernandez reported that he was SOB last night and needed more oxygen. As per nurses he had a panic attack. No increase in oxygen this am. On ventimask due to PATIENT PREFERENCE DUE TO IRRITATION WITH NASAL CANNULA, and NOT DUE TO worsening hypoxia. SOB is improving though continues to experience dyspnea on exertion. will start weaning oxygen. Spoke with Dr Rubio at baseline does not have hypoxia. His FEV1 was 40% of predicted and 1.3 l PHYSICAL EXAMINATION: VITAL SIGNS: see below GENERAL APPEARANCE: no distress when sitting at the side of the bed. No conve rsational dyspnea. no nasal flaring pallor or cyanosis.ventimask HEENT: NC, AT, moist mucous membranes. Neck: No JVD. no tracheal deviation CARDIOVASCULAR: S1S2 RRR. Nondisplaced point of maximal impulse, no murmur or rub or gallop LUNGS: diminished, prolonged expiration . fine crackles b/l ABDOMEN: soft nt nd no hsm. Obese. No fluid wave EXTREMITIES: no cyanosis, clubbing, edema LABORATORY DATA: See below. IMAGIN04/04/20 CXR Persisting bibasilar infiltrates, unchanged from 03/31/2020. 03/31/20CT chest with contrast Opacification at bilateral lung bases. Etiology likely infectious. Correlation with patient's COVID-19 status with lab value. Emphysematous changes. No pulmonary embolism. ASSESSMENT and PLAN: 69 year old male with pmh significant for CAD/ stents, Chronic asthma followed by Dr. Rubio at [facility], emphysema on CT chest, erectile dysfunction, dyslipidemia admitted at [facility] from 03/31/20 to 04/02/20 for asthma exacerbation, covid -19 pneumonia treated with remdesevir x2days, abx, and prednisone taper and discharged returns with CONRAD, productive cough of brownish sputum,low grade temp 100.0, headache mostly in the back of the head, dysgeusia, anosmia, nausea without vomiting or abdominal pain, worsening low back pain than usual radiating across his back, and "struggling to breathe without oxygen" since hospital discharge on 04/02/20. He was seen by telemedicine by his primary care physician, Dr. León before coming to the ER today, when he was found to be hypoxic 87% on room air with persistent infiltrates on CXR. Patient was admitted for acute hypoxic respiratory failure, coronaviral infection, possible HCAP, and asthma exacerbation. Acute Hypoxic Respiratory Failure 87% RA on arrival -on facemask DUE TO patient's preference. Pt had irritation with skin breakdown w nasal cannula -Due to HCAP and COVID pneumonia. Coronavirus infection diagnosed on 03/28/20 COVID - 19 pneumonia finished remdesevir, on steroids started weaning. afebrile still needing o2, but change to facemask was for patient preference. improving inflammatory markers. Not given Lovex due to low Hb on admission and suspicious for slow ongoing GIB. ASA. Bilateral pneumonia, health-care associated due to recent admission from 03/31/20 to 04/02/20 vanco discontinued due to negative MRSA iv cefepime finished 4 days then switched to levofloxacin. Now remains on levaquin. Severe chronic asthma- copd overlap Was a smoke and worked in [employer]. Has Diffuse emphysema in CT scan Spoke with Dr Rubio at baseline does not have hypoxia. His FEV1 was 40% of pre dicted and 1.3 l Anemia acute on chronic blood loss anemia s/p 2 units of PRBC stool for occult blood positivex1 will repeat h/o nonbleeding internal hemorrhoids h/o nonbleeding colonic angioectasias h/o descending colonic erosions h/o anal fissures had symptomatic anemia requiring rbc transfusion Ferritin has been low. not medically stable for endoscopy due to hypoxia and COVID. on PPI and carafate. Will need EGD and colonoscopy as outpatient after resp issues have resolved. continue on ASA only. History of iron deficiency anemia needed rbc transfusion due to symptoms Coronary Artery Disease with h/o coronary stents Last stetn placed in June in [place] , [place] indication was stable angina Discussed with Dr Davis as the indication for stent was stable angina he needs to be absolutely on dual antiplatelets for 6 months then plavix may be stopped if needed. will stop plavix and continue only on ASA due to recent GIB requiring 2 units of PRBC tranfusion Dyslipidemia on statin Asthma/ COPD exacerbation improved sob with iv steroids and abx continue inhalers and supplemental oxygen until hypoxia resolves tapering steroids. Chronic low back pain resumed on pain meds h/o hiatal hernia on PPI Nasal dryness and epistaxis/skin breakdown on philtrum due to nasal cannula. humidified oxygen and ventimask for PATIENT COMFORT. DVT prophylaxis: Mechanical. VS,Fishbone, I+O VS, Fishbone, I+O Laboratory Tests 04/10/20 05:43 Vital Signs Date Time Temp Pulse Resp B/P (MAP) Pulse Ox O2 Delivery O2 Flow Rate FiO2 04/10/20 04:00 97.1 64 20 141/68 (92) 97 Venturi Mask 12.0 35 I&O- Last 24 Hours up to 6 AM 04/10/20 07:00 Intake Total 1860 ml Output Total 1620 ml Balance 240 ml CHERELLE STONE MD Apr 10, 2020 06:50
[2020-04-11] MEDS: SYMBICORT 160/4.5MCG INHALER 6GM INH SCH ×2 (07:46→19:52)
[2020-04-11 08:14] LABS: BASO % 0.1 % (0.0-1.0); EOS % 0.1 % (0.0-3.0); HEMATOCRIT 34.2 % (42.0-52.0); HEMOGLOBIN 10.1 g/dl (13.5-17.5); LYMPH # 0.2 10^3/uL (1.5-5.0); LYMPH % 1.3 % (24.0-44.0); MEAN CORPUSCULAR HEMOGLOBIN 22.6 pg (27.0-33.0); MEAN CORPUSCULAR HGB CONC 29.5 g/dl (32.0-36.5); MEAN CORPUSCULAR VOLUME 76.7 fl (80.0-96.0); MONO # 0.5 10^3/uL (0.0-0.8); MONO % 3.2 % (0.0-5.0); NEUTROPHILS # 15.4 10^3/uL (1.5-8.5); NEUTROPHILS % 94.2 % (36.0-66.0); PLATELET COUNT, AUTOMATED 349 10^3/uL (150-450); RED BLOOD COUNT 4.46 10^6/uL (4.30-6.10); WHITE BLOOD COUNT 16.3 10^3/uL (4.0-10.0)
[2020-04-11] MEDS: ASPIRIN 81 MG ENTERIC TAB PO SCH (08:20)
[2020-04-11] MEDS: SUCRALFATE 1 GM TAB PO SCH ×4 (08:20→21:56)
[2020-04-11] MEDS: PANTOPRAZOLE 40MG TAB (PROTONIX) PO SCH ×2 (08:20→21:57)
[2020-04-11] MEDS: BACITRACIN OINTMENT 30GM TUBE TOP SCH ×2 (08:21→21:55)
[2020-04-11 08:34] LABS: BLOOD UREA NITROGEN 23 MG/DL (7-18); C REACTIVE PROTEIN QUANTITATIV 3.39 MG/DL (0.00-0.30); CALCIUM LEVEL 7.8 MG/DL (8.8-10.2); CARBON DIOXIDE LEVEL 28 MEQ/L (21-32); CHLORIDE LEVEL 103 MEQ/L (98-107); CREATININE FOR GFR 0.86 MG/DL (0.70-1.30); GLOMERULAR FILTRATION RATE > 60.0 (>49); GLUCOSE, FASTING 120 MG/DL (70-100); POTASSIUM SERUM 4.5 MEQ/L (3.5-5.1); SODIUM LEVEL 137 MEQ/L (136-145)
[2020-04-11 16:00] VITALS: BP 123/76
[2020-04-11] MEDS: DOCUSATE SODIUM 100MG CAPSULE PO SCH (21:55)
[2020-04-11] MEDS: ROSUVASTATIN 10 MG TAB (CRESTOR) PO SCH (21:56)
[2020-04-11] MEDS: diphenhydrAMINE 25MG CAP PO SCH (21:56)
[2020-04-11] MEDS: traZODone 100 MG TAB PO SCH (21:57)
[2020-04-11 22:02] VITALS: BP 133/70
[2020-04-11] MEDS: METOPROLOL SUCC *XL* 25MG TAB (TopROL *XL*) PO SCH (22:02)
[2020-04-11 22:03] VITALS: BP 133/70
[2020-04-12] VITALS: O2SAT 92
[2020-04-12] MEDS: COMBIVENT RESPIMAT 100-20MCG INHALER 4GM INH SCH ×3 (00:12→09:11)
[2020-04-12 04:00] VITALS: BP 138/69
[2020-04-12] MEDS: methylPREDNISolone 40MG 1ML VIAL IV SCH (04:26)
[2020-04-12] MEDS: ALPRAZolam 0.5 MG TAB PO PRN ×2 (04:39→11:07)
[2020-04-12 04:40] VITALS: O2SAT 90
[2020-04-12 08:00] VITALS: O2SAT 92
[2020-04-12] MEDS: ASPIRIN 81 MG ENTERIC TAB PO SCH (09:11)
[2020-04-12] MEDS: BACITRACIN OINTMENT 30GM TUBE TOP SCH (09:11)
[2020-04-12] MEDS: SUCRALFATE 1 GM TAB PO SCH ×2 (09:11→12:54)
[2020-04-12] MEDS: PANTOPRAZOLE 40MG TAB (PROTONIX) PO SCH (09:11)
[2020-04-12] MEDS: SYMBICORT 160/4.5MCG INHALER 6GM INH SCH (09:12)
[2020-04-12 09:42] LABS: BASO % 0.1 % (0.0-1.0); EOS % 0.2 % (0.0-3.0); HEMATOCRIT 34.2 % (42.0-52.0); HEMOGLOBIN 9.9 g/dl (13.5-17.5); LYMPH # 0.2 10^3/uL (1.5-5.0); LYMPH % 1.1 % (24.0-44.0); MEAN CORPUSCULAR HGB CONC 28.9 g/dl (32.0-36.5); MEAN CORPUSCULAR VOLUME 76.2 fl (80.0-96.0); MONO # 0.4 10^3/uL (0.0-0.8); MONO % 2.7 % (0.0-5.0); NEUTROPHILS # 15.3 10^3/uL (1.5-8.5); NEUTROPHILS % 94.6 % (36.0-66.0); PLATELET COUNT, AUTOMATED 332 10^3/uL (150-450); RED BLOOD COUNT 4.49 10^6/uL (4.30-6.10); WHITE BLOOD COUNT 16.2 10^3/uL (4.0-10.0)
[2020-04-12 09:46] LABS: BLOOD UREA NITROGEN 21 MG/DL (7-18); CALCIUM LEVEL 7.9 MG/DL (8.8-10.2); CARBON DIOXIDE LEVEL 26 MEQ/L (21-32); CHLORIDE LEVEL 105 MEQ/L (98-107); GLOMERULAR FILTRATION RATE > 60.0 (>49); GLUCOSE, FASTING 111 MG/DL (70-100); POTASSIUM SERUM 4.6 MEQ/L (3.5-5.1); SODIUM LEVEL 139 MEQ/L (136-145)
[2020-04-12] MEDS ORDERED: SUCR1TA PO (10:38)
[2020-04-12] MEDS ORDERED: PANT40TA29 PO (10:38)
[2020-04-12] MEDS ORDERED: PRED10TA2 PO (10:38)
[2020-04-12] MEDS ORDERED: NYST50SS SS (13:21)
[2020-04-12] MEDS ORDERED: MUPI2OI TOP (13:27)
--- NOTE | 2020-04-12 22:01 | DS.PDOC ---
Discharge Summary General Date of Admission Apr 04, 2020 at 16:15 Date of Discharge 04/12/20 Discharge Summary PROCEDURES PERFORMED DURING STAY: [None]. DISCHARGE DIAGNOSES: COVID Pneumonia HCAP Oral thrush Nasal Ulcer at the nasal apertures due to high flow nasal canula use. GIB Acute blood loss anemia Acute respiratory failure with hypoxia Severe chronic asthma-Copd overlap, FEV1 40%, 1.3L with exacerbation CAD s/p stents Iron deficiency anemia HLD Anxiety Chronic low back pain Hiatal hernia COMPLICATIONS/CHIEF COMPLAINT: Acute Asthma Exacerbation,Acute Hypoxemic Resp [place]. HOSPITAL COURSE: SUBJECTIVE: 69 year old male with pmh significant for CAD/ stents, Chronic [facility], emphysema on CT chest, erectile dysfunction, dyslipidemia admitted at [facility] from 03/31/20 to 04/02/20 for asthma exacerbation, covid -19 pneumonia treated with remdesevir x2days, abx, and prednisone taper and discharged returns with CONRAD, productive cough of brownish sputum,low grade temp 100.0, headache mostly in the back of the head, dysgeusia, anosmia, nausea without vomiting or abdominal pain, worsening low back pain than usual radiating across his back, and "struggling to breathe without oxygen" since hospital discharge on 04/02/20. He was seen by telemedicine by his primary care physician, Dr. León before coming to the ER when he was found to be hypoxic 87% on room air with persistent infiltrates on CXR. Patient was admitted for acute hypoxic respiratory failure, coronaviral infection, possible HCAP, and asthma exacerbation. Acute Hypoxic Respiratory Failure 87% RA on arrival on facemask DUE TO patient's preference. Pt had irritation with skin breakdown w nasal cannula Due to HCAP and COVID pneumonia. Coronavirus infection diagnosed on 03/28/20 COVID - 19 pneumonia finished remdesevir, on steroids started weaning. afebrile still needing o2, but change to facemask was for patient preference. improving inflammatory markers. Not given Lovenox due to low Hb on admission and suspicious for slow ongoing GIB. ASA. Bilateral pneumonia, health-care associated due to recent admission from 03/31/20 to 04/02/20 vanco discontinued due to negative MRSA iv cefepime finished 4 days then switched to levofloxacin. Finished course of antibiotics. Severe chronic asthma- copd overlap Was a smoke and worked in [employer]. Has Diffuse emphysema in CT scan Spoke with Dr Rubio at baseline does not have hypoxia. His FEV1 was 40% of predicted and 1.3 l Anemia acute on chronic blood loss anemia s/p 2 units of PRBC stool for occult blood positivex1 will repeat h/o nonbleeding internal hemorrhoids h/o nonbleeding colonic angioectasias h/o descending colonic erosions h/o anal fissures had symptomatic anemia requiring rbc transfusion Ferritin has been low. not medically stable for endoscopy due to hypoxia and COVID. on PPI and carafate. Will need EGD and colonoscopy as outpatient after resp issues have resolved. continue on ASA only. History of iron deficiency anemia needed rbc transfusion due to symptoms Coronary Artery Disease with h/o coronary stents Last stent placed in June in [place] , [place] indication was stable angina Discussed with Dr Davis as the indication for stent was stable angina he needs to be absolutely on dual antiplatelets for 6 months only then plavix may be stopped if needed. will stop plavix and continue only on ASA due to recent GIB requiring 2 units of PRBC transfusion Dyslipidemia on statin Asthma/ COPD exacerbation improved sob with iv steroids and abx continue inhalers and supplemental oxygen until hypoxia resolves tapering steroids. Chronic low back pain resumed on pain meds h/o hiatal hernia on PPI Nasal dryness and epistaxis/skin breakdown on philtrum due to nasal cannula. humidified oxygen and ventimask for PATIENT COMFORT. DISCHARGE MEDICATIONS: Please see below. ALLERGIES: Please see below. PHYSICAL EXAMINATION ON DISCHARGE: VITAL SIGNS: Please see below. GENERAL APPEARANCE: no distress when sitting at the side of the bed. No conversational dyspnea. no nasal flaring pallor or cyanosis.ventimask HEENT: NC, AT, moist mucous membranes. Neck: No JVD. no tracheal deviation CARDIOVASCULAR: S1S2 RRR. Nondisplaced point of maximal impulse, no murmur or rub or gallop LUNGS: diminished, prolonged expiration, bilateral basal crackles. ABDOMEN: soft nontender not distended. Obese. No fluid wave, normal bowel sounds. EXTREMITIES: no cyanosis, clubbing, edema LABORATORY DATA: Please see below. IMAGIN04/04/20 CXR Persisting bibasilar infiltrates, unchanged from 03/31/2020. 03/31/20CT chest with contrast Opacification at bilateral lung bases. Etiology likely infectious. Correlation with patient's COVID-19 status with lab value. Emphysematous changes. No pulmonary embolism. ACTIVITY: [As tolerated]. DIET: as tolerated DISPOSITION: Home Health Service. DISCHARGE INSTRUCTIONS: PMD in 1 week, Dr Rubio in 2 weeks Will need referral to GI for EGD and Colonoscopy. DISCHARGE CONDITION: [Stable]. TIME SPENT ON DISCHARGE: 35 minutes. Vital Signs/I&Os Vital Signs Date Time Temp Pulse Resp B/P (MAP) Pulse Ox O2 Delivery O2 Flow Rate FiO2 04/12/20 08:00 92 Venturi Mask 4.0 24 04/12/20 04:00 96.5 84 18 138/69 (92) I&O- Last 24 Hours up to 6 AM 04/12/20 07:00 Intake Total 400 ml Output Total 1550 ml Balance -1150 ml Laboratory Data Labs 24H Laboratory Tests 2 04/12/20 08:24: Immature Granulocyte % (Auto) 1.3, Neutrophils (%) (Auto) 94.6H, Lymphocytes (%) (Auto) 1.1L, Monocytes (%) (Auto) 2.7, Eosinophils (%) (Auto) 0.2, Basophils (%) (Auto) 0.1, Neutrophils # (Auto) 15.3H, Lymphocytes # (Auto) 0.2L, Monocytes # (Auto) 0.4, Eosinophils # (Auto) 0.0, Basophils # (Auto) 0.0, Nucleated Red Blood Cells % (auto) 0.0, D-Dimer, Quantitative 1277.96H, Anion Gap 8, Glomerular Filtration Rate > 60.0, Calcium Level 7.9L CBC/BMP Laboratory Tests 04/12/20 08:24 Microbiology Microbiology 04/11/20 Stool Occult Blood (MONIE) - Final, Complete 04/05/20 Stool Occult Blood (MONIE) - Final, Complete 04/04/20 Blood Culture - Final, Complete NO GROWTH AFTER 5 DAYS 04/04/20 Blood Culture - Final, Complete NO GROWTH AFTER 5 DAYS Discharge Medications Scheduled Alprazolam (Alprazolam) 0.5 Mg Tablet, 0.5 MG PO TID, (Reported) Aspirin (Aspirin EC) 81 Mg Tablet.dr, 81 MG PO DAILY, (Reported) Budesonide/Formoterol (Symbicort 160-4.5 Mcg Inhaler) 6 Gm Hfa.aer.ad, 2 PUFFS PO BID, (Reported) Diphenhydramine HCl (Diphenhydramine HCl) 25 Mg Capsule, 50 MG PO QHS, (Reported) Docusate Sodium (Colace) 100 Mg Capsule, 300 MG PO QHS, (Reported) Ferrous Sulfate (Ferrous Sulfate) 324 Mg Tablet.dr, 324 MG PO DAILY, (Reported) Metoprolol Succinate (Metoprolol Succinate) 25 Mg Tab.er.24h, 25 MG PO QHS, (Reported) Multivitamin,Therapeutic (Thera-Tabs) 1 Each Tablet, 1 TAB PO DAILY, (Reported) Mupirocin (Mupirocin) 2 % Oint...g., 1 APLCT TOP TID apply to affected area(s) Nystatin (Nystatin Oral Susp) 100,000 Unit/1 Ml Oral.susp, 5 ML SS QID Pantoprazole Sodium (Pantoprazole Sodium) 40 Mg Tablet.dr, 40 MG PO BID Prednisone (Prednisone) 10 Mg Tablet, 10 MG PO TAPER Take 4 tabs daily x 3 days, then 3 tabs daily x 3 days, then 2 tabs daily x 3 days, then 1 tab daily x 3 days and stop Rosuvastatin Calcium (Rosuvastatin Calcium) 10 Mg Tablet, 5 MG PO QHS, (Reported) Sucralfate (Sucralfate) 1 Gm Tablet, 1 GM PO ACHS Trazodone HCl (Trazodone HCl) 50 Mg Tablet, 100 MG PO QHS, (Reported) Wheat Dextrin (Benefiber) 1 Each Powd.pack, 1 POW PO DAILY, (Reported) Scheduled PRN Acetaminophen (Acetaminophen) 500 Mg Tablet, 500 MG PO Q6H PRN for PAIN / FEVER, (Reported) Albuterol Sulfate (Ventolin Hfa) 18 Gm Hfa.aer.ad, 2 PUFFS PO Q4H PRN for MAGALI RTNESS OF BREATH, (Reported) Polyethylene Glycol 3350 (Miralax) 119 Gm Powder, 17 GM PO DAILY PRN for CONSTIPATION, (Reported) dilute in 8 ounces of water or juice Sildenafil Citrate (Sildenafil Citrate) 20 Mg Tablet, 20 MG PO ASDIRECTED PRN for ERECTILE DYSFUNCTION, (Reported) Allergies Coded Allergies: theophylline (Verified Adverse Reaction, Mild, HYPERACTIVITY, 04/04/20) CHERELLE STONE MD Apr 12, 2020 22:01
== END 2020-04-12 14:34 | disposition home health service (06) | DRG 177 ==
LOC: M ED 14:03 → M ED INP 16:15 → ENRESERV 16:27 → M 4MAIN 18:15
PROVIDERS: ADMIT General Practice; ATTEND Internal Medicine Nephrology
PROC: 30233N1 Transfusion of Nonautologous Red Blood Cells into Peripheral Vein, Percutaneous Approach (ICD-10-PCS; principal; 2020-04-05)
DX: U07.1 COVID-19 (principal); J15.9 Unspecified bacterial pneumonia; J96.01 Acute respiratory failure with hypoxia; J12.89 Other viral pneumonia; J45.901 Unspecified asthma with (acute) exacerbation; B37.0 Candidal stomatitis; K92.2 Gastrointestinal hemorrhage, unspecified; D62 Acute posthemorrhagic anemia; J44.1 Chronic obstructive pulmonary disease with (acute) exacerbation; J44.0 Chronic obstructive pulmonary disease with (acute) lower respiratory infection; F41.9 Anxiety disorder, unspecified; K44.9 Diaphragmatic hernia without obstruction or gangrene; M54.5 Low back pain; Z79.899 Other long term (current) drug therapy; Z79.82 Long term (current) use of aspirin; Z88.8 Allergy status to other drugs, medicaments and biological substances; J34.0 Abscess, furuncle and carbuncle of nose; I25.10 Atherosclerotic heart disease of native coronary artery without angina pectoris; Z95.2 Presence of prosthetic heart valve; E78.5 Hyperlipidemia, unspecified

== ENCOUNTER → 2020-04-17 | Outpatient (REF) | payer MEDICARE ==
[~2020-04-17] MED LIST changes: +MUPI2OI TOP; +NYST50SS SS; +PRED10TA2 PO; +SUCR1TA PO
[2020-04-17 10:45] LABS: HEMATOCRIT 33.8 % (42.0-52.0); MEAN CORPUSCULAR HGB CONC 29.6 g/dl (32.0-36.5); MEAN CORPUSCULAR VOLUME 77.7 fl (80.0-96.0); PLATELET COUNT, AUTOMATED 278 10^3/uL (150-450); RED BLOOD COUNT 4.35 10^6/uL (4.30-6.10); WHITE BLOOD COUNT 9.3 10^3/uL (4.0-10.0)
[2020-04-17 11:08] LABS: ALBUMIN 2.7 GM/DL (3.2-5.2); ALT/SGPT 36 U/L (12-78); BILIRUBIN,TOTAL 0.4 MG/DL (0.2-1.0); BLOOD UREA NITROGEN 18 MG/DL (7-18); CALCIUM LEVEL 8.4 MG/DL (8.8-10.2); CARBON DIOXIDE LEVEL 29 MEQ/L (21-32); CHLORIDE LEVEL 104 MEQ/L (98-107); CREATININE FOR GFR 1.04 MG/DL (0.70-1.30); GLOMERULAR FILTRATION RATE > 60.0 (>49); GLUCOSE, FASTING 112 MG/DL (70-100); POTASSIUM SERUM 3.7 MEQ/L (3.5-5.1); SODIUM LEVEL 138 MEQ/L (136-145); TOTAL PROTEIN 5.6 GM/DL (6.4-8.2)
== END ==
LOC: M SHH 10:29
PROVIDERS: ATTEND Internal Medicine
DX: D50.9 Iron deficiency anemia, unspecified (principal); I10 Essential (primary) hypertension

== ENCOUNTER → 2020-05-09 | Outpatient (REF) | payer MEDICARE ==
[2020-05-09 11:39] LABS: HEMATOCRIT 34.2 % (42.0-52.0); HEMOGLOBIN 9.8 g/dl (13.5-17.5); MEAN CORPUSCULAR HEMOGLOBIN 22.3 pg (27.0-33.0); MEAN CORPUSCULAR HGB CONC 28.7 g/dl (32.0-36.5); MEAN CORPUSCULAR VOLUME 77.7 fl (80.0-96.0); PLATELET COUNT, AUTOMATED 309 10^3/uL (150-450)
[2020-05-09 12:00] LABS: ERYTHROCYTE SEDIMENTATION RATE 34 mm/hr (0-20)
[2020-05-09 12:20] LABS: ALBUMIN 3.1 GM/DL (3.2-5.2); ALT/SGPT 31 U/L (12-78); BILIRUBIN,TOTAL 0.4 MG/DL (0.2-1.0); BLOOD UREA NITROGEN 13 MG/DL (7-18); CALCIUM LEVEL 8.4 MG/DL (8.8-10.2); CARBON DIOXIDE LEVEL 30 MEQ/L (21-32); CHLORIDE LEVEL 106 MEQ/L (98-107); CREATININE FOR GFR 0.93 MG/DL (0.70-1.30); GLOMERULAR FILTRATION RATE > 60.0 (>49); GLUCOSE, FASTING 104 MG/DL (70-100); POTASSIUM SERUM 4.7 MEQ/L (3.5-5.1); SODIUM LEVEL 137 MEQ/L (136-145); TOTAL PROTEIN 6.1 GM/DL (6.4-8.2)
== END ==
LOC: M SHH 11:02
PROVIDERS: ATTEND Internal Medicine
DX: U07.1 COVID-19 (principal)

== ENCOUNTER → 2020-05-23 | Outpatient (REF) | payer MEDICARE ==
[2020-05-23 15:40] LABS: BASO % 0.5 % (0.0-1.0); EOS % 0.5 % (0.0-3.0); HEMATOCRIT 38.8 % (42.0-52.0); HEMOGLOBIN 11.2 g/dl (13.5-17.5); LYMPH # 0.6 10^3/uL (1.5-5.0); MEAN CORPUSCULAR HEMOGLOBIN 22.9 pg (27.0-33.0); MEAN CORPUSCULAR HGB CONC 28.9 g/dl (32.0-36.5); MEAN CORPUSCULAR VOLUME 79.2 fl (80.0-96.0); MONO # 0.3 10^3/uL (0.0-0.8); NEUTROPHILS # 6.9 10^3/uL (1.5-8.5); NEUTROPHILS % 86.1 % (36.0-66.0); PLATELET COUNT, AUTOMATED 248 10^3/uL (150-450)
[2020-05-23 16:11] LABS: BLOOD UREA NITROGEN 17 MG/DL (7-18); CALCIUM LEVEL 8.9 MG/DL (8.8-10.2); CARBON DIOXIDE LEVEL 26 MEQ/L (21-32); CHLORIDE LEVEL 104 MEQ/L (98-107); CHOLESTEROL LEVEL 145 MG/DL (<200); CHOLESTEROL RISK RATIO 2.735 (<5); CREATININE FOR GFR 0.85 MG/DL (0.70-1.30); GLOMERULAR FILTRATION RATE > 60.0 (>49); GLUCOSE, FASTING 152 MG/DL (70-100); HDL CHOLESTEROL 53 MG/DL (>40); LDL CHOLESTEROL 77 MG/DL (<100); NON-HDL-C 92 MG/DL; POTASSIUM SERUM 4.7 MEQ/L (3.5-5.1); SODIUM LEVEL 140 MEQ/L (136-145); TRIGLYCERIDES LEVEL 73 MG/DL (<150)
== END ==
LOC: M LAB REF 15:30
PROVIDERS: ATTEND Internal Medicine
DX: D50.9 Iron deficiency anemia, unspecified (principal); I10 Essential (primary) hypertension; E78.00 Pure hypercholesterolemia, unspecified

== ENCOUNTER → 2020-07-26 | Outpatient (CLI) | payer MEDICARE, BC, OTHER ==
[~2020-07-26] MED LIST changes: +FERR1TAB8 PO; +TELM1TAB33 PO
== END ==
LOC: M LABSMTC 11:12
PROVIDERS: ATTEND Anesthesiology
DX: Z01.812 Encounter for preprocedural laboratory examination (principal); Z20.822 Contact with and (suspected) exposure to COVID-19

== ENCOUNTER 2020-07-31 08:58 | Day surgery (SDC) | payer MEDICARE ==
[~2020-07-31] VITALS: Ht 170.2 cm; Wt 87.1 kg
[~2020-07-31 08:58] MED LIST changes: +NS 1,000 ML IV ONE
[2020-07-31] MEDS ORDERED: fentaNYL 100 MCG/2 ML INJECTION (J3010) As Ordered ONE (11:18)
[2020-07-31] MEDS ORDERED: ePHEDrine SULFATE 25 MG/5 ML(5MG/ML) SYRINGE As Ordered ONE (11:27)
--- NOTE | 2020-07-31 11:31 | ROOR ---
Patient Name: Bladimir Valdes Procedure Date: 07/31/2020 11:18 AM Date of : 1950 Age: 69 Room: [facility] Gender: Male Note Status: Finalized Procedure: Upper Endoscopy + Biopsies Indications: Unexplained iron deficiency anemia Providers: Maikol Chen MD Referring MD: María SERRANO MD Requesting Provider: Medicines: Monitored Anesthesia Care Complications: No immediate complications. Procedure: Pre-Anesthesia Assessment: - The heart rate, respiratory rate, oxygen saturations, blood pressure, adequacy of pulmonary ventilation, and response to care were monitored throughout the procedure. The Endoscope was introduced through the mouth, and advanced to the second part of duodenum. The upper GI endoscopy was accomplished without difficulty. The patient tolerated the procedure well. Findings: The Z-line was regular and was found 40 cm from the incisors. Localized mildly erythematous mucosa without bleeding was found in the gastric antrum. Biopsies were taken with a cold forceps for Helicobacter pylori testing. The exam of the duodenum was otherwise normal. Impression: - Z-line regular, 40 cm from the incisors. - Erythematous mucosa in the antrum. Biopsied. - The examination was otherwise normal. Recommendation: - Patient has a contact number available for emergencies. The signs and symptoms of potential delayed complications were discussed with the patient. Return to normal activities tomorrow. Written discharge instructions were provided to the patient. - High fiber diet. - Discharge patient to home. - Continue present medications. - Await pathology results. - Telephone GI clinic for pathology results in 1 week. - Return to referring physician. - The findings and recommendations were discussed with the patient. Procedure Code(s): --- Professional --- 75052, Esophagogastroduodenoscopy, flexible, transoral; with biopsy, single or multiple Diagnosis Code(s): --- Professional --- K31.89, Other diseases of stomach and duodenum D50.9, Iron deficiency anemia, unspecified CPT copyright 2019 [employer]. All rights reserved. The codes documented in this report are preliminary and upon performing arts technicians review may be revised to meet current compliance requirements. Maikol Chen MD Maikol Chen MD 07/31/2020 11:30:59 AM Electronically signed by Maikol Chen MD Number of Addenda: 0 Note Initiated On: 07/31/2020 11:18 AM Estimated Blood Loss: Estimated blood loss: none.
[2020-07-31] MEDS ORDERED: propofoL 200 MG/20 ML VIAL As Ordered ONE (11:33)
[2020-07-31] MEDS ORDERED: LIDOCAINE 2% 100MG/5ML SDV (FOR ANES.) As Ordered ONE (11:33)
--- NOTE | 2020-07-31 11:47 | ROOR ---
Patient Name: Bladimir Valdes Procedure Date: 07/31/2020 11:19 AM Date of : 1950 Age: 69 Room: [facility] Gender: Male Note Status: Finalized Procedure: Total Colonoscopy to Cecum + ileoscopy Indications: Unexplained iron deficiency anemia Providers: Maikol Chen MD Referring MD: María SERRANO MD Requesting Provider: Medicines: Monitored Anesthesia Care Complications: No immediate complications. Procedure: Pre-Anesthesia Assessment: - The heart rate, respiratory rate, oxygen saturations, blood pressure, adequacy of pulmonary ventilation, and response to care were monitored throughout the procedure. The Colonoscope was introduced through the anus and advanced to the terminal ileum, with identification of the appendiceal orifice and IC valve. The colonoscopy was performed without difficulty. The patient tolerated the procedure well. The quality of the bowel preparation was good. Findings: The perianal and digital rectal examinations were normal. Non-bleeding internal hemorrhoids were found during retroflexion. The hemorrhoids were medium-sized and Grade I (internal hemorrhoids that do not prolapse). No other significant abnormalities were identified in a careful examination of the remainder of the colon. The terminal ileum appeared normal. The exam was otherwise without abnormality on direct and retroflexion views. Impression: - Non-bleeding internal hemorrhoids. - The examined portion of the ileum was normal. - The examination was otherwise normal on direct and retroflexion views. - No specimens collected. - The exam was otherwise normal to the cecum. Recommendation: - Patient has a contact number available for emergencies. The signs and symptoms of potential delayed complications were discussed with the patient. Return to normal activities tomorrow. Written discharge instructions were provided to the patient. - High fiber diet. - Discharge patient to home. - Continue present medications. - Repeat colonoscopy in 10 years for screening purposes. - Return to referring physician. - The findings and recommendations were discussed with the patient. Procedure Code(s): --- Professional --- 85149, Colonoscopy, flexible; diagnostic, including collection of specimen(s) by brushing or washing, when performed (separate procedure) Diagnosis Code(s): --- Professional --- K64.0, First degree hemorrhoids D50.9, Iron deficiency anemia, unspecified CPT copyright 2019 [employer]. All rights reserved. The codes documented in this report are preliminary and upon auto body customizer review may be revised to meet current compliance requirements. Maikol Chen MD Maikol Chen MD 07/31/2020 11:46:29 AM Electronically signed by Maikol Chen MD Number of Addenda: 0 Note Initiated On: 07/31/2020 11:19 AM Estimated Blood Loss: Estimated blood loss: none.
[2020-07-31 12:17] VITALS: BP 125/60
== END 2020-07-31 12:20 | disposition home or self-care (01) ==
LOC: M OPP 08:58
PROVIDERS: ATTEND Internal Medicine Gastroenterology
DX: D50.9 Iron deficiency anemia, unspecified (principal); K64.8 Other hemorrhoids; K31.89 Other diseases of stomach and duodenum; J44.9 Chronic obstructive pulmonary disease, unspecified; Z86.19 Personal history of other infectious and parasitic diseases; Z86.16 Personal history of COVID-19; Z79.82 Long term (current) use of aspirin; Z79.899 Other long term (current) drug therapy; Z88.8 Allergy status to other drugs, medicaments and biological substances; Z95.0 Presence of cardiac pacemaker
CPT/HCPCS: 43239; 45378; 88305; J3010

== ENCOUNTER → 2021-08-30 | Outpatient (CLI) | payer MEDICARE ==
[~2021-08-30] MED LIST changes: -NS 1,000 ML IV ONE
== END ==
LOC: M RAD 13:01
PROVIDERS: ATTEND Physician Assistant Medical
DX: R10.9 Unspecified abdominal pain (principal)

== ENCOUNTER → 2021-09-03 | Outpatient (REF) | payer MEDICARE | LOC: M LAB REF 12:31 | PROVIDERS: ATTEND Internal Medicine | DX: R19.7 Diarrhea, unspecified (principal) ==

== ENCOUNTER → 2023-01-28 | Outpatient (REF) | payer MEDICARE ==
[~2023-01-28] MED LIST changes: +CARB1DRO13 OU; +DIPH-435 PO; -DIPH25CA32 PO; -DOXY-350 PO; +DOXY-444 PO; +EQL0.65S NARES; +NOXI1TAB PO; +NYST-38 SS; -NYST50SS SS; +OMEP1CAP73 PO; +PERC5TAB12 PO; +PRES10CA2 PO; +PRES1CHW PO; +TRAZ1TAB14 PO; +VITA200016 PO; +[UNRECOGNIZED DRUG - CODE] PO
[2023-01-28 14:34] LABS: CA19-9 TUMOR MARKER,CARBOHYDRA 219.5 U/ML (<35.0)
== END ==
LOC: M LAB REF 12:15
PROVIDERS: ATTEND Internal Medicine
DX: R10.10 Upper abdominal pain, unspecified (principal); R17 Unspecified jaundice

== ENCOUNTER 2023-02-11 13:14 | Observation (INO) | payer MEDICARE ==
[~2023-02-11] VITALS: Ht 170.2 cm; Wt 77.9 kg
[2023-02-11 14:47] LABS: BASO % 0.2 % (0.0-1.0); EOS # 0.1 10^3/uL (0.0-0.5); EOS % 0.5 % (0.0-3.0); HEMATOCRIT 44.2 % (42.0-52.0); LYMPH # 0.8 10^3/uL (1.5-5.0); LYMPH % 8.4 % (24.0-44.0); MEAN CORPUSCULAR HEMOGLOBIN 26.9 pg (27.0-33.0); MEAN CORPUSCULAR HGB CONC 31.7 g/dl (32.0-36.5); MEAN CORPUSCULAR VOLUME 84.8 fl (80.0-96.0); MONO # 0.9 10^3/uL (0.0-0.8); MONO % 9.3 % (2.0-8.0); NEUTROPHILS # 7.4 10^3/uL (1.5-8.5); NEUTROPHILS % 81.4 % (36.0-66.0); PLATELET COUNT, AUTOMATED 240 10^3/uL (150-450); RED BLOOD COUNT 5.21 10^6/uL (4.30-6.10); WHITE BLOOD COUNT 9.1 10^3/uL (4.0-10.0)
[2023-02-11 15:03] LABS: LIPASE 619 U/L (12-53)
[2023-02-11 15:05] LABS: ALBUMIN 3.4 G/DL (3.2-5.2); ALKALINE PHOSPHATASE 186 U/L (46-116); ALT/SGPT 45 U/L (7.0-40); AST/SGOT 18 U/L (<34); BILIRUBIN,DIRECT 0.6 MG/DL (<0.4); BILIRUBIN,TOTAL 1.1 MG/DL (0.3-1.2); BLOOD UREA NITROGEN 14 MG/DL (9-23); CALCIUM LEVEL 8.5 MG/DL (8.3-10.6); CARBON DIOXIDE LEVEL 30 MMOL/L (20-31); CHLORIDE LEVEL 104 MMOL/L (98-107); CREATININE FOR GFR 0.89 MG/DL (0.70-1.30); GLOMERULAR FILTRATION RATE > 60.0 (>42); GLUCOSE, FASTING 124 MG/DL (74-106); POTASSIUM SERUM 4.2 MMOL/L (3.5-5.1); SODIUM LEVEL 141 MMOL/L (136-145); TOTAL PROTEIN 6.3 G/DL (5.7-8.2)
[2023-02-11] MEDS ORDERED: ISOVUE-370 76% 100ML VIAL As Ordered ONE (15:38)
[2023-02-11] MEDS ORDERED: MORPHINE 2 MG/ML 1ML VIAL IV ONE (15:40)
[2023-02-11] MEDS ORDERED: ONDANSETRON 4MG 2ML VIAL IV ONE (15:40)
[2023-02-11] MEDS ORDERED: NS 1,000 ML IV ONE (15:40)
[2023-02-11] MEDS ORDERED: MED REC IN PROGRESS XX SCH (18:15)
[2023-02-11] MEDS ORDERED: ACETAMINOPHEN TAB 650MG DOSE (2X325MG) PO PRN (18:20)
[2023-02-11] MEDS ORDERED: MOM 30ML SUSPENSION UDC PO PRN (18:20)
[2023-02-11] MEDS ORDERED: MORPHINE 4 MG/ML 1ML VIAL IV PRN (18:30)
[2023-02-11] MEDS ORDERED: HOME MED LIST COMPLETE! XX SCH (18:45)
[2023-02-11] MEDS ORDERED: PILL CUTTER 1 EACH XX PRN (19:20)
[2023-02-11] MEDS: ALBUTEROL 90 MCG/ACT 8GM HFA INHALER INH PRN (20:23)
[2023-02-11] MEDS: SYMBICORT 160/4.5MCG INHALER 6GM INH SCH (20:23)
[2023-02-11 20:35] VITALS: BP 155/97; TEMP 97.1; O2SAT 97
[2023-02-11] MEDS: ALPRAZolam 0.5 MG TAB PO PRN (21:11)
[2023-02-11] MEDS: DOCUSATE SODIUM 100MG CAPSULE PO SCH (21:11)
[2023-02-11] MEDS: traZODone 50 MG TAB PO SCH (21:11)
[2023-02-11] MEDS: FERROUS SULFATE 325MG TAB PO SCH (21:11)
[2023-02-11] MEDS: OMEPRAZOLE 20MG CAP PO SCH (21:11)
[2023-02-11] MEDS: ROSUVASTATIN 10 MG TAB (CRESTOR) PO SCH (21:11)
[2023-02-11] MEDS: LR 1,000 ML IV SCH (21:12)
[2023-02-12] MEDS: LR 1,000 ML IV SCH ×4 (02:50→20:58)
[2023-02-12] MEDS: MORPHINE 2 MG/ML 1ML VIAL IV PRN ×2 (04:34→13:44)
[2023-02-12 06:45] VITALS: BP 102/56; TEMP 98.1; O2SAT 97
[2023-02-12 07:30] LABS: MEAN CORPUSCULAR HEMOGLOBIN 27.1 pg (27.0-33.0); MEAN CORPUSCULAR HGB CONC 32.4 g/dl (32.0-36.5); MEAN CORPUSCULAR VOLUME 83.7 fl (80.0-96.0); PLATELET COUNT, AUTOMATED 165 10^3/uL (150-450); RED BLOOD COUNT 4.06 10^6/uL (4.30-6.10); WHITE BLOOD COUNT 6.9 10^3/uL (4.0-10.0)
[2023-02-12] MEDS: SYMBICORT 160/4.5MCG INHALER 6GM INH SCH ×2 (07:44→19:42)
[2023-02-12] MEDS: DOCUSATE SODIUM 100MG CAPSULE PO SCH ×2 (08:29→20:57)
[2023-02-12] MEDS: ALPRAZolam 0.5 MG TAB PO PRN ×3 (08:29→21:04)
[2023-02-12] MEDS: ASPIRIN 81MG ENTERIC TABLET PO SCH (08:29)
[2023-02-12] MEDS: FERROUS SULFATE 325MG TAB PO SCH ×2 (08:29→20:57)
[2023-02-12] MEDS: OMEPRAZOLE 20MG CAP PO SCH ×2 (08:29→20:57)
[2023-02-12] MEDS: ENOXAPARIN 40MG/0.4ML SYRINGE (J1650 PER 10MG) SC SCH (08:30)
[2023-02-12 14:51] LABS: BLOOD UREA NITROGEN 12 MG/DL (7-21); CARBON DIOXIDE LEVEL 22 MEQ/L (22-30); CHLORIDE LEVEL 105 MEQ/L (98-107); CREATININE FOR GFR 0.7 MG/DL (0.7-1.5); GLOMERULAR FILTRATION RATE > 60.0 (>42); GLUCOSE, FASTING 105 MG/DL; POTASSIUM SERUM 4.1 MEQ/L (3.6-5.0); SODIUM LEVEL 138 MEQ/L (134-153)
[2023-02-12] MEDS: ALBUTEROL 90 MCG/ACT 8GM HFA INHALER INH PRN ×2 (16:33→19:41)
[2023-02-12] MEDS: SENNA 8.6 MG TAB (SENOKOT) PO SCH (16:56)
[2023-02-12 18:03] VITALS: BP 112/63; TEMP 99; O2SAT 97
[2023-02-12] MEDS ORDERED: ACETAMINOPHEN TAB 650MG DOSE (2X325MG) PO PRN (19:50)
[2023-02-12] MEDS: ROSUVASTATIN 10 MG TAB (CRESTOR) PO SCH (20:57)
[2023-02-12] MEDS: MIRALAX *UNIT DOSE* 17GM PACKET PO SCH (20:57)
[2023-02-12] MEDS: traZODone 50 MG TAB PO SCH (20:57)
[2023-02-12] MEDS ORDERED: MIRALAX *UNIT DOSE* 17GM PACKET PO SCH (21:00)
[2023-02-12 21:11] VITALS: BP 108/64; TEMP 98.6; O2SAT 97
[2023-02-13] MEDS: LR 1,000 ML IV SCH ×2 (03:49→08:55)
[2023-02-13 06:58] VITALS: BP 101/58; TEMP 98.1; O2SAT 97
[2023-02-13 07:45] LABS: HEMATOCRIT 33.6 % (42.0-52.0); HEMOGLOBIN 11.2 g/dl (13.5-17.5); MEAN CORPUSCULAR HEMOGLOBIN 27.3 pg (27.0-33.0); MEAN CORPUSCULAR HGB CONC 33.3 g/dl (32.0-36.5); PLATELET COUNT, AUTOMATED 154 10^3/uL (150-450)
[2023-02-13] MEDS: ALBUTEROL 90 MCG/ACT 8GM HFA INHALER INH PRN (08:10)
[2023-02-13] MEDS: SYMBICORT 160/4.5MCG INHALER 6GM INH SCH (08:10)
[2023-02-13] MEDS: DOCUSATE SODIUM 100MG CAPSULE PO SCH (09:05)
[2023-02-13] MEDS: SENNA 8.6 MG TAB (SENOKOT) PO SCH (09:05)
[2023-02-13] MEDS: OMEPRAZOLE 20MG CAP PO SCH (09:05)
[2023-02-13] MEDS: FERROUS SULFATE 325MG TAB PO SCH (09:05)
[2023-02-13] MEDS: ENOXAPARIN 40MG/0.4ML SYRINGE (J1650 PER 10MG) SC SCH (09:05)
[2023-02-13] MEDS: MIRALAX *UNIT DOSE* 17GM PACKET PO SCH (09:05)
[2023-02-13] MEDS: ASPIRIN 81MG ENTERIC TABLET PO SCH (09:05)
[2023-02-13] MEDS: ALPRAZolam 0.5 MG TAB PO PRN (09:28)
[2023-02-13] MEDS ORDERED: MIRA3350 PO (09:52)
[2023-02-13] MEDS ORDERED: FERR1TAB8 PO (09:52)
[2023-02-13] MEDS ORDERED: SENN-188 PO (09:52)
[2023-02-14 09:12] LABS: ALKALINE PHOSPHATASE 147 U/L (40-129); ALT/SGPT 23 U/L (1-41); AST/SGOT 15 U/L (5-40); BILIRUBIN,DIRECT 0.4 MG/DL (0.1-0.4); BILIRUBIN,TOTAL 0.8 MG/DL (0.2-1.3)
[2023-02-14 09:13] LABS: TOTAL PROTEIN 4.9 G/DL (6.3-8.2)
== END 2023-02-13 11:45 | disposition home or self-care (01) ==
LOC: M ED 13:14 → M ED INP 13:15 → M MS5PR 20:49
PROVIDERS: ADMIT Student in an Organized Health Care Education/Training Program; ATTEND Student in an Organized Health Care Education/Training Program
DX: K85.90 Acute pancreatitis without necrosis or infection, unspecified (principal); R74.01 Elevation of levels of liver transaminase levels; D64.89 Other specified anemias; I10 Essential (primary) hypertension; E78.5 Hyperlipidemia, unspecified; Z98.61 Coronary angioplasty status; M54.50 Low back pain, unspecified; I25.10 Atherosclerotic heart disease of native coronary artery without angina pectoris; K21.9 Gastro-esophageal reflux disease without esophagitis; J44.9 Chronic obstructive pulmonary disease, unspecified; F41.9 Anxiety disorder, unspecified; Z79.82 Long term (current) use of aspirin; Z87.891 Personal history of nicotine dependence; Z88.8 Allergy status to other drugs, medicaments and biological substances; Z79.899 Other long term (current) drug therapy
CPT/HCPCS: 36415; 74018; 74177; 80048; 80076; 83605; 83690; 85025; 85027; 87635; 94010; 94640; 94664; 96372; 96374; 96375; 96376; 99284; G0378; G0463; J1650; J2405; Q9967

== ENCOUNTER 2023-02-24 11:53 | Emergency (ER) | payer MEDICARE ==
[~2023-02-24] VITALS: Ht 171.4 cm; Wt 77.4 kg
[~2023-02-24 11:53] MED LIST changes: +SENN-188 PO
[2023-02-24 12:50] LABS: BASO % 0.2 % (0.0-1.0); EOS % 0.1 % (0.0-3.0); HEMATOCRIT 36.6 % (42.0-52.0); HEMOGLOBIN 12.1 g/dl (13.5-17.5); LYMPH # 0.3 10^3/uL (1.5-5.0); LYMPH % 1.8 % (24.0-44.0); MEAN CORPUSCULAR HEMOGLOBIN 27.3 pg (27.0-33.0); MEAN CORPUSCULAR HGB CONC 33.1 g/dl (32.0-36.5); MEAN CORPUSCULAR VOLUME 82.4 fl (80.0-96.0); MONO # 0.5 10^3/uL (0.0-0.8); MONO % 3.1 % (2.0-8.0); NEUTROPHILS % 94.4 % (36.0-66.0); PLATELET COUNT, AUTOMATED 224 10^3/uL (150-450); RED BLOOD COUNT 4.44 10^6/uL (4.30-6.10); WHITE BLOOD COUNT 15.9 10^3/uL (4.0-10.0)
[2023-02-24] MEDS ORDERED: ACETAMINOPHEN TAB 650MG DOSE (2X325MG) PO ONE (13:05)
[2023-02-24] MEDS ORDERED: ONDANSETRON 4MG 2ML VIAL IV ONE (13:05)
[2023-02-24 13:07] LABS: ALBUMIN 3.1 G/DL (3.2-5.2); BILIRUBIN,DIRECT 1.7 MG/DL (<0.4); BILIRUBIN,TOTAL 2.4 MG/DL (0.3-1.2); TOTAL PROTEIN 5.9 G/DL (5.7-8.2)
[2023-02-24] MEDS ORDERED: PIPERACILLIN/TAZOBACTAM SOD 4.5 GM in D5W MINI-BAG PLUS 50 ML IV ONE (13:30)
[2023-02-24] MEDS ORDERED: ISOVUE-370 76% 100ML VIAL As Ordered ONE (13:34)
[2023-02-24] MEDS ORDERED: NS 1,000 ML IV ONE ×2 (13:35→15:50)
[2023-02-24 17:00] VITALS: TEMP 98.9
[2023-02-24] MEDS ORDERED: ALPRAZolam 0.5 MG TAB PO ONE (17:10)
[2023-02-24] MEDS ORDERED: NS 1,000 ML IV SCH (18:25)
[2023-02-24] MEDS ORDERED: SYMBICORT 160/4.5MCG INHALER 6GM INH ONE (18:35)
[2023-02-24] MEDS ORDERED: ALBUTEROL 90 MCG/ACT 8GM HFA INHALER INH ONE (18:35)
[2023-02-24] MEDS ORDERED: PIPERACILLIN/TAZOBACTAM SOD 3.375 GM in D5W MINI-BAG PLUS 50 ML IV ONE (19:30)
[2023-02-24 21:35] VITALS: BP 120/53; O2SAT 96
== END 2023-02-24 21:50 | disposition short-term general hospital (02) ==
LOC: EDBD 11:53 → M ED 12:56
DX: T85.520A Displacement of bile duct prosthesis, initial encounter (principal); K83.1 Obstruction of bile duct; K86.9 Disease of pancreas, unspecified; I10 Essential (primary) hypertension; E78.5 Hyperlipidemia, unspecified; F41.9 Anxiety disorder, unspecified; F10.10 Alcohol abuse, uncomplicated; Z86.79 Personal history of other diseases of the circulatory system; Z87.891 Personal history of nicotine dependence; Z88.8 Allergy status to other drugs, medicaments and biological substances; Z79.52 Long term (current) use of systemic steroids; Z79.82 Long term (current) use of aspirin; Z79.83 Long term (current) use of bisphosphonates; Z79.899 Other long term (current) drug therapy
CPT/HCPCS: 74177; 80047; 80076; 83605; 83690; 85025; 87635; 94640; 96361; 96365; 96375; 99285; J2405; J2543; Q9967

== ENCOUNTER → 2023-03-24 | Outpatient (REF) | payer MEDICARE | LOC: M LAB REF 16:28 | PROVIDERS: ATTEND Internal Medicine | DX: Z12.5 Encounter for screening for malignant neoplasm of prostate (principal) ==

== ENCOUNTER → 2023-04-02 | Outpatient (CLI) | payer MEDICARE | LOC: M RAD 09:36 | PROVIDERS: ATTEND Specialist | DX: C25.9 Malignant neoplasm of pancreas, unspecified (principal) ==

== ENCOUNTER 2023-05-13 09:01 | Emergency (ER) | payer MEDICARE ==
[~2023-05-13] VITALS: Ht 171.4 cm; Wt 68.0 kg
[~2023-05-13 09:01] MED LIST changes: +ACET-683 PO; +LIDO30CR18 TOP; +ONDA-84 PO; +OXYC1TAB23 PO; +PROC10TA5 PO
[2023-05-13] MEDS ORDERED: NS 1,000 ML IV ONE (09:20)
[2023-05-13 10:04] LABS: BASO % 0.3 % (0.0-1.0); EOS % 0.3 % (0.0-3.0); HEMOGLOBIN 11.3 g/dl (13.5-17.5); LYMPH # 0.4 10^3/uL (1.5-5.0); LYMPH % 4.7 % (24.0-44.0); MEAN CORPUSCULAR HEMOGLOBIN 25.1 pg (27.0-33.0); MEAN CORPUSCULAR HGB CONC 32.3 g/dl (32.0-36.5); MEAN CORPUSCULAR VOLUME 77.8 fl (80.0-96.0); MONO % 11.6 % (2.0-8.0); NEUTROPHILS # 7.4 10^3/uL (1.5-8.5); NEUTROPHILS % 82.2 % (36.0-66.0); PLATELET COUNT, AUTOMATED 283 10^3/uL (150-450)
[2023-05-13 10:37] LABS: LIPASE 194 U/L (12-53)
[2023-05-13 10:39] LABS: ALBUMIN 2.8 G/DL (3.2-5.2); ALKALINE PHOSPHATASE 187 U/L (46-116); ALT/SGPT 15 U/L (7.0-40); AMYLASE 155 U/L (30-118); AST/SGOT < 8 U/L (<34); BILIRUBIN,DIRECT 0.2 MG/DL (<0.4); BILIRUBIN,TOTAL 0.5 MG/DL (0.3-1.2); BLOOD UREA NITROGEN 13 MG/DL (9-23); CALCIUM LEVEL 8.2 MG/DL (8.3-10.6); CARBON DIOXIDE LEVEL 25 MMOL/L (20-31); CHLORIDE LEVEL 99 MMOL/L (98-107); CREATININE FOR GFR 0.76 MG/DL (0.70-1.30); GLOMERULAR FILTRATION RATE > 60.0 (>42); GLUCOSE, FASTING 117 MG/DL (74-106); POTASSIUM SERUM 3.8 MMOL/L (3.5-5.1); RSV AMPLIFICATION NEGATIVE (NEGATIVE); SODIUM LEVEL 131 MMOL/L (136-145); TOTAL PROTEIN 5.9 G/DL (5.7-8.2)
[2023-05-13 12:30] VITALS: BP 128/76; TEMP 97.3; O2SAT 99
[2023-05-17] MEDS ORDERED: LOPE-39 PO (11:51)
== END 2023-05-13 13:05 | disposition home or self-care (01) ==
LOC: M ED 09:01 → EDBD 09:01 → M ED 13:05
DX: C25.9 Malignant neoplasm of pancreas, unspecified (principal); R19.7 Diarrhea, unspecified; R00.0 Tachycardia, unspecified; I45.10 Unspecified right bundle-branch block; I44.4 Left anterior fascicular block; J44.9 Chronic obstructive pulmonary disease, unspecified; Z87.891 Personal history of nicotine dependence; Z88.8 Allergy status to other drugs, medicaments and biological substances; Z86.79 Personal history of other diseases of the circulatory system; Z79.52 Long term (current) use of systemic steroids; Z79.83 Long term (current) use of bisphosphonates; Z79.899 Other long term (current) drug therapy

== ENCOUNTER 2023-05-17 13:35 | Inpatient (IN) | payer MEDICARE ==
[~2023-05-17] VITALS: Ht 170.2 cm; Wt 68.9 kg
[~2023-05-17 13:35] MED LIST changes: +LOPE-39 PO
[2023-05-17 14:45] VITALS: BP 103/55; TEMP 99.1; O2SAT 95
[2023-05-17] MEDS ORDERED: METOCLOPRAMIDE INJ 10MG/2ML VIAL IV ONE (15:30)
[2023-05-17] MEDS: KCL 40MEQ in NS 1000ML 1,000 ML IV SCH ×2 (15:38→20:01)
[2023-05-17] MEDS ORDERED: ISOVUE-370 76% 100ML VIAL As Ordered ONE (16:00)
[2023-05-17] MEDS ORDERED: MED REC IN PROGRESS XX SCH (16:05)
[2023-05-17] MEDS ORDERED: FERR325T3 PO (16:29)
[2023-05-17] MEDS ORDERED: HOME MED LIST COMPLETE! XX SCH (16:30)
[2023-05-17 16:50] LABS: MAGNESIUM LEVEL 1.5 MG/DL (1.8-2.4)
[2023-05-17] MEDS ORDERED: EMLA CREAM 5GM TUBE (LIDOCAINE/PRILOCAINE) TOP SCH (17:55)
[2023-05-17] MEDS ORDERED: POTASSIUM CHLORIDE 10% LIQ 20MEQ/15ML UDC PO ONE (17:55)
[2023-05-17] MEDS ORDERED: ONDANSETRON 4MG 2ML VIAL IV PRN (17:55)
[2023-05-17] MEDS ORDERED: SODIUM CHLORIDE NASAL 0.65% SPRAY BTL (OCEAN) PRN (17:55)
[2023-05-17] MEDS: MAG SULF 1GM/100ML (MAG RUN) 1 GM in IV 1 EA IV SCH ×2 (18:15→19:58)
[2023-05-17] MEDS ORDERED: PILL CUTTER 1 EACH XX PRN (18:25)
[2023-05-17 19:12] LABS: C REACTIVE PROTEIN QUANTITATIV 26.7 MG/DL (<1.0)
[2023-05-17 19:14] LABS: ALBUMIN 2.3 G/DL (3.2-5.2); ALKALINE PHOSPHATASE 190 U/L (46-116); ALT/SGPT 13 U/L (7.0-40); AST/SGOT 11 U/L (<34); BILIRUBIN,TOTAL 0.4 MG/DL (0.3-1.2); BLOOD UREA NITROGEN 9 MG/DL (9-23); CARBON DIOXIDE LEVEL 29 MMOL/L (20-31); CHLORIDE LEVEL 95 MMOL/L (98-107); CREATININE FOR GFR 0.99 MG/DL (0.70-1.30); GLOMERULAR FILTRATION RATE > 60.0 (>42); GLUCOSE, FASTING 114 MG/DL (74-106); SODIUM LEVEL 130 MMOL/L (136-145); TOTAL PROTEIN 5.9 G/DL (5.7-8.2)
[2023-05-17 19:22] LABS: PROCALCITONIN 0.42 ng/ml
[2023-05-17] MEDS: traZODone 50 MG TAB PO SCH (19:59)
[2023-05-17] MEDS: ROSUVASTATIN 10 MG TAB (CRESTOR) PO SCH (20:00)
[2023-05-17] MEDS: OMEPRAZOLE 20MG CAP PO SCH (20:00)
[2023-05-17] MEDS: SYMBICORT 160/4.5MCG INHALER 6GM INH SCH (20:19)
[2023-05-17] MEDS: ALBUTEROL 90 MCG/ACT 8GM HFA INHALER INH PRN (20:21)
[2023-05-17] MEDS ORDERED: METOCLOPRAMIDE 10MG TAB PO SCH (22:00)
[2023-05-17 22:55] LABS: BLOOD UREA NITROGEN 10 MG/DL (9-23); CALCIUM LEVEL 7.3 MG/DL (8.3-10.6); CARBON DIOXIDE LEVEL 28 MMOL/L (20-31); CHLORIDE LEVEL 98 MMOL/L (98-107); CREATININE FOR GFR 0.83 MG/DL (0.70-1.30); GLOMERULAR FILTRATION RATE > 60.0 (>42); GLUCOSE, FASTING 136 MG/DL (74-106); MAGNESIUM LEVEL 2.2 MG/DL (1.8-2.4); POTASSIUM SERUM 3.4 MMOL/L (3.5-5.1); SODIUM LEVEL 130 MMOL/L (136-145)
[2023-05-18 04:50] VITALS: BP 119/55; TEMP 99.1; O2SAT 93
[2023-05-18 05:52] LABS: HEMATOCRIT 28.7 % (42.0-52.0); HEMOGLOBIN 9.3 g/dl (13.5-17.5); MEAN CORPUSCULAR HEMOGLOBIN 25.1 pg (27.0-33.0); MEAN CORPUSCULAR HGB CONC 32.4 g/dl (32.0-36.5); MEAN CORPUSCULAR VOLUME 77.4 fl (80.0-96.0); PLATELET COUNT, AUTOMATED 228 10^3/uL (150-450); RED BLOOD COUNT 3.71 10^6/uL (4.30-6.10); WHITE BLOOD COUNT 9.4 10^3/uL (4.0-10.0)
[2023-05-18 06:25] LABS: BLOOD UREA NITROGEN 10 MG/DL (9-23); CALCIUM LEVEL 7.1 MG/DL (8.3-10.6); CARBON DIOXIDE LEVEL 26 MMOL/L (20-31); CHLORIDE LEVEL 102 MMOL/L (98-107); CREATININE FOR GFR 0.86 MG/DL (0.70-1.30); GLOMERULAR FILTRATION RATE > 60.0 (>42); GLUCOSE, FASTING 116 MG/DL (74-106); MAGNESIUM LEVEL 1.9 MG/DL (1.8-2.4); POTASSIUM SERUM 4.2 MMOL/L (3.5-5.1); SODIUM LEVEL 133 MMOL/L (136-145)
[2023-05-18] MEDS: KCL 40MEQ in NS 1000ML 1,000 ML IV SCH ×2 (06:52→12:29)
[2023-05-18] MEDS: SYMBICORT 160/4.5MCG INHALER 6GM INH SCH ×2 (07:32→19:15)
[2023-05-18] MEDS: ALBUTEROL 90 MCG/ACT 8GM HFA INHALER INH PRN ×2 (07:33→19:15)
[2023-05-18] MEDS: ENOXAPARIN 40MG/0.4ML SYRINGE (J1650 PER 10MG) SC SCH (08:09)
[2023-05-18] MEDS: ASPIRIN 81MG ENTERIC TABLET PO SCH (08:09)
[2023-05-18] MEDS: OMEPRAZOLE 20MG CAP PO SCH ×2 (08:09→19:57)
[2023-05-18] MEDS: METOCLOPRAMIDE 10MG TAB PO PRN ×2 (08:10→20:00)
[2023-05-18] MEDS: PERCOCET 5MG/325MG TAB PO PRN (08:12)
[2023-05-18] MEDS ORDERED: PREPARATION H OINTMENT (HEMORRHOID) PR PRN (08:55)
[2023-05-18] MEDS: PIPERACILLIN/TAZOBACTAM SOD 3.375 GM in D5W MINI-BAG PLUS 50 ML IV SCH ×3 (11:38→21:02)
[2023-05-18] MEDS: ALPRAZolam 0.5 MG TAB PO PRN ×2 (11:42→19:58)
[2023-05-18] MEDS: LACTOBACILLUS ACIDOPHILUS CAP (BACID) PO SCH ×3 (12:29→19:57)
[2023-05-18 12:39] LABS: ALBUMIN 1.8 G/DL (3.2-5.2); ALKALINE PHOSPHATASE 156 U/L (46-116); ALT/SGPT < 9 U/L (7.0-40); AST/SGOT 8 U/L (<34); BILIRUBIN,DIRECT 0.2 MG/DL (<0.4); BILIRUBIN,TOTAL 0.3 MG/DL (0.3-1.2); TOTAL PROTEIN 4.7 G/DL (5.7-8.2)
[2023-05-18 14:00] VITALS: TEMP 98.8
[2023-05-18] MEDS: LR 1,000 ML IV SCH ×2 (15:04→23:26)
[2023-05-18 19:57] VITALS: TEMP 100.7
[2023-05-18] MEDS: ROSUVASTATIN 10 MG TAB (CRESTOR) PO SCH (19:57)
[2023-05-18] MEDS: traZODone 50 MG TAB PO SCH (19:58)
[2023-05-18] MEDS: ACETAMINOPHEN 500 MG TAB PO PRN (19:58)
[2023-05-18 20:00] VITALS: BP 121/62; O2SAT 95
[2023-05-18 20:58] VITALS: TEMP 99.2
[2023-05-19] MEDS: PIPERACILLIN/TAZOBACTAM SOD 3.375 GM in D5W MINI-BAG PLUS 50 ML IV SCH ×4 (03:57→21:35)
[2023-05-19 06:00] VITALS: BP 107/55; TEMP 98.7; O2SAT 96
[2023-05-19 06:03] LABS: HEMATOCRIT 27.8 % (42.0-52.0); MEAN CORPUSCULAR HGB CONC 32.4 g/dl (32.0-36.5); MEAN CORPUSCULAR VOLUME 77.2 fl (80.0-96.0); PLATELET COUNT, AUTOMATED 224 10^3/uL (150-450); WHITE BLOOD COUNT 11.2 10^3/uL (4.0-10.0)
[2023-05-19 06:22] LABS: ERYTHROCYTE SEDIMENTATION RATE 50 mm/hr (0-20)
[2023-05-19 06:46] LABS: EOSINOPHILS 3 % (0-3); LYMPHOCYTES 7 % (16-44); MONOCYTES 6 % (0-5); MYELOCYTES 1 % (0-0); NEUTROPHILS 82 % (28-66)
[2023-05-19 06:47] LABS: ALBUMIN 1.6 G/DL (3.2-5.2); ALKALINE PHOSPHATASE 163 U/L (46-116); ALT/SGPT < 9 U/L (7.0-40); ANISOCYTOSIS 1+; AST/SGOT < 8 U/L (<34); BILIRUBIN,DIRECT 0.2 MG/DL (<0.4); BILIRUBIN,TOTAL 0.3 MG/DL (0.3-1.2); BLOOD UREA NITROGEN 7 MG/DL (9-23); CALCIUM LEVEL 7.4 MG/DL (8.3-10.6); CARBON DIOXIDE LEVEL 26 MMOL/L (20-31); CHLORIDE LEVEL 101 MMOL/L (98-107); CREATININE FOR GFR 0.79 MG/DL (0.70-1.30); GLOMERULAR FILTRATION RATE > 60.0 (>42); GLUCOSE, FASTING 129 MG/DL (74-106); HYPOCHROMASIA 1+; MICROCYTOSIS 1+; PLATELET ESTIMATE NORMAL (NORMAL); POTASSIUM SERUM 3.7 MMOL/L (3.5-5.1); SODIUM LEVEL 132 MMOL/L (136-145); TOTAL PROTEIN 4.4 G/DL (5.7-8.2)
[2023-05-19] MEDS: ENOXAPARIN 40MG/0.4ML SYRINGE (J1650 PER 10MG) SC SCH (08:38)
[2023-05-19] MEDS: ASPIRIN 81MG ENTERIC TABLET PO SCH (08:39)
[2023-05-19] MEDS: LACTOBACILLUS ACIDOPHILUS CAP (BACID) PO SCH ×4 (08:39→21:36)
[2023-05-19] MEDS: OMEPRAZOLE 20MG CAP PO SCH ×2 (08:39→21:36)
[2023-05-19] MEDS ORDERED: SODIUM CHLORIDE 0.9% INJ 10 ML SYR IV PRN (08:50)
[2023-05-19] MEDS: ALBUTEROL 90 MCG/ACT 8GM HFA INHALER INH PRN (08:52)
[2023-05-19] MEDS: SYMBICORT 160/4.5MCG INHALER 6GM INH SCH ×2 (08:52→19:33)
[2023-05-19] MEDS: SODIUM CHLORIDE 0.9% INJ 10 ML SYR IV SCH (10:35)
[2023-05-19] MEDS: PERCOCET 5MG/325MG TAB PO PRN ×2 (10:38→22:39)
[2023-05-19] MEDS ORDERED: LOPERAMIDE 2 MG CAPLET PO PRN (12:55)
[2023-05-19] MEDS ORDERED: PINK BISMUTH SUSP 524MG/30ML ORAL SYRINGE PO SCH (13:00)
[2023-05-19 14:00] VITALS: BP 114/55; TEMP 96.1; O2SAT 96
[2023-05-19] MEDS: LR 1,000 ML IV SCH (15:12)
[2023-05-19] MEDS: PINK BISMUTH SUSP 524MG/30ML ORAL SYRINGE PO SCH ×2 (17:21→21:40)
[2023-05-19] MEDS ORDERED: SALIVA SUBSTITUTE(MOUTHKOTE) BTL MT PRN (18:00)
[2023-05-19 20:24] VITALS: BP 122/62; TEMP 98.1; O2SAT 97
[2023-05-19] MEDS: ROSUVASTATIN 10 MG TAB (CRESTOR) PO SCH (21:36)
[2023-05-19] MEDS: traZODone 50 MG TAB PO SCH (21:36)
[2023-05-19] MEDS: ALPRAZolam 0.5 MG TAB PO PRN (21:40)
[2023-05-20] MEDS: PINK BISMUTH SUSP 524MG/30ML ORAL SYRINGE PO SCH ×6 (01:04→20:23)
[2023-05-20] MEDS: PIPERACILLIN/TAZOBACTAM SOD 3.375 GM in D5W MINI-BAG PLUS 50 ML IV SCH ×4 (04:58→21:45)
[2023-05-20 05:10] VITALS: BP 109/58; TEMP 97.7; O2SAT 95
[2023-05-20 06:15] LABS: BASO % 0.3 % (0.0-1.0); EOS # 0.4 10^3/uL (0.0-0.5); EOS % 3.8 % (0.0-3.0); HEMATOCRIT 26.5 % (42.0-52.0); HEMOGLOBIN 8.6 g/dl (13.5-17.5); LYMPH # 0.6 10^3/uL (1.5-5.0); LYMPH % 5.8 % (24.0-44.0); MEAN CORPUSCULAR HGB CONC 32.5 g/dl (32.0-36.5); MONO # 0.8 10^3/uL (0.0-0.8); MONO % 7.5 % (2.0-8.0); NEUTROPHILS # 8.1 10^3/uL (1.5-8.5); PLATELET COUNT, AUTOMATED 238 10^3/uL (150-450); RED BLOOD COUNT 3.44 10^6/uL (4.30-6.10)
[2023-05-20] MEDS: LR 1,000 ML IV SCH ×2 (06:25→08:15)
[2023-05-20 06:41] LABS: ALBUMIN 1.5 G/DL (3.2-5.2); ALKALINE PHOSPHATASE 147 U/L (46-116); ALT/SGPT < 9 U/L (7.0-40); AST/SGOT < 8 U/L (<34); BILIRUBIN,DIRECT 0.1 MG/DL (<0.4); BILIRUBIN,TOTAL 0.2 MG/DL (0.3-1.2); BLOOD UREA NITROGEN 5 MG/DL (9-23); CALCIUM LEVEL 6.6 MG/DL (8.3-10.6); CARBON DIOXIDE LEVEL 29 MMOL/L (20-31); CHLORIDE LEVEL 106 MMOL/L (98-107); CREATININE FOR GFR 0.79 MG/DL (0.70-1.30); GLOMERULAR FILTRATION RATE > 60.0 (>42); GLUCOSE, FASTING 98 MG/DL (74-106); POTASSIUM SERUM 3.7 MMOL/L (3.5-5.1); SODIUM LEVEL 138 MMOL/L (136-145); TOTAL PROTEIN 3.9 G/DL (5.7-8.2)
[2023-05-20] MEDS: SYMBICORT 160/4.5MCG INHALER 6GM INH SCH ×2 (07:34→19:11)
[2023-05-20] MEDS: ENOXAPARIN 40MG/0.4ML SYRINGE (J1650 PER 10MG) SC SCH (08:14)
[2023-05-20] MEDS: SODIUM CHLORIDE 0.9% INJ 10 ML SYR IV SCH (08:14)
[2023-05-20] MEDS: OMEPRAZOLE 20MG CAP PO SCH ×2 (08:14→20:21)
[2023-05-20] MEDS: ASPIRIN 81MG ENTERIC TABLET PO SCH (08:14)
[2023-05-20] MEDS: LACTOBACILLUS ACIDOPHILUS CAP (BACID) PO SCH ×4 (08:14→20:20)
[2023-05-20] MEDS: PERCOCET 5MG/325MG TAB PO PRN (10:03)
[2023-05-20 14:00] VITALS: BP 108/57; TEMP 97.7; O2SAT 97
[2023-05-20] MEDS: ALBUTEROL 90 MCG/ACT 8GM HFA INHALER INH PRN (19:10)
[2023-05-20] MEDS: ROSUVASTATIN 10 MG TAB (CRESTOR) PO SCH (20:21)
[2023-05-20] MEDS: traZODone 50 MG TAB PO SCH (20:21)
[2023-05-20] MEDS: ALPRAZolam 0.5 MG TAB PO PRN (20:22)
[2023-05-20] MEDS: ACETAMINOPHEN 500 MG TAB PO PRN (20:22)
[2023-05-20 21:23] VITALS: BP 97/46; TEMP 97.9; O2SAT 97
[2023-05-20 21:40] VITALS: BP 103/54
[2023-05-21] MEDS: PIPERACILLIN/TAZOBACTAM SOD 3.375 GM in D5W MINI-BAG PLUS 50 ML IV SCH ×2 (03:41→09:59)
[2023-05-21 06:00] VITALS: BP 107/56; TEMP 97.9; O2SAT 96
[2023-05-21 06:34] LABS: BASO % 0.3 % (0.0-1.0); EOS # 0.3 10^3/uL (0.0-0.5); HEMATOCRIT 26.2 % (42.0-52.0); HEMOGLOBIN 8.4 g/dl (13.5-17.5); LYMPH # 0.5 10^3/uL (1.5-5.0); LYMPH % 7.1 % (24.0-44.0); MEAN CORPUSCULAR HEMOGLOBIN 24.7 pg (27.0-33.0); MEAN CORPUSCULAR HGB CONC 32.1 g/dl (32.0-36.5); MEAN CORPUSCULAR VOLUME 77.1 fl (80.0-96.0); MONO # 0.6 10^3/uL (0.0-0.8); MONO % 7.6 % (2.0-8.0); NEUTROPHILS # 5.7 10^3/uL (1.5-8.5); NEUTROPHILS % 77.7 % (36.0-66.0); PLATELET COUNT, AUTOMATED 256 10^3/uL (150-450); WHITE BLOOD COUNT 7.3 10^3/uL (4.0-10.0)
[2023-05-21 07:02] LABS: ERYTHROCYTE SEDIMENTATION RATE 39 mm/hr (0-20)
[2023-05-21 07:21] LABS: ALBUMIN 1.4 G/DL (3.2-5.2); ALKALINE PHOSPHATASE 152 U/L (46-116); ALT/SGPT < 9 U/L (7.0-40); AST/SGOT < 8 U/L (<34); BILIRUBIN,DIRECT 0.1 MG/DL (<0.4); BILIRUBIN,TOTAL 0.2 MG/DL (0.3-1.2); BLOOD UREA NITROGEN 6 MG/DL (9-23); CALCIUM LEVEL 6.6 MG/DL (8.3-10.6); CARBON DIOXIDE LEVEL 29 MMOL/L (20-31); CHLORIDE LEVEL 104 MMOL/L (98-107); CREATININE FOR GFR 0.79 MG/DL (0.70-1.30); GLOMERULAR FILTRATION RATE > 60.0 (>42); GLUCOSE, FASTING 103 MG/DL (74-106); POTASSIUM SERUM 3.4 MMOL/L (3.5-5.1); SODIUM LEVEL 136 MMOL/L (136-145)
[2023-05-21 07:31] LABS: PROCALCITONIN 0.26 ng/ml
[2023-05-21] MEDS: SYMBICORT 160/4.5MCG INHALER 6GM INH SCH (07:46)
[2023-05-21] MEDS: OMEPRAZOLE 20MG CAP PO SCH (08:23)
[2023-05-21] MEDS: ASPIRIN 81MG ENTERIC TABLET PO SCH (08:23)
[2023-05-21] MEDS: LACTOBACILLUS ACIDOPHILUS CAP (BACID) PO SCH ×2 (08:23→11:58)
[2023-05-21] MEDS: ENOXAPARIN 40MG/0.4ML SYRINGE (J1650 PER 10MG) SC SCH (08:24)
[2023-05-21] MEDS: ALBUTEROL 90 MCG/ACT 8GM HFA INHALER INH PRN (09:23)
[2023-05-21 09:26] LABS: IRON (FE) 8 UG/DL (65-175); PERCENT SATURATION 5.7 % (19.7-50.0); TOTAL IRON BINDING CAPACITY 140 UG/DL (250-425)
[2023-05-21 09:29] LABS: FOLATE 7.9 NG/ML (>5.4); VITAMIN B12 LEVEL 1696 PG/ML (211-911)
[2023-05-21] MEDS ORDERED: POTASSIUM CHLORIDE 10MEQ SR TABLET PO ONE (10:15)
[2023-05-21] MEDS ORDERED: CIPR-249 PO (10:46)
[2023-05-21] MEDS ORDERED: METR-265 PO (10:46)
[2023-05-21] MEDS ORDERED: RISATAB3 PO (10:46)
[2023-05-21] MEDS ORDERED: FERRIC CARBOXYMALTOSE INJ 750 MG, VIAL MATE ADAPTER 1 EACH in NS 250 ML IV ONE (12:00)
[2023-05-21 14:12] VITALS: BP 107/56; TEMP 98.1
== END 2023-05-21 14:12 | disposition home or self-care (01) | DRG 371 ==
LOC: M MSPAV 14:16 → OBSVTOIN 05-18 11:38
PROVIDERS: ADMIT Family Medicine; ATTEND Student in an Organized Health Care Education/Training Program
DX: A04.9 Bacterial intestinal infection, unspecified (principal); G93.41 Metabolic encephalopathy; C25.9 Malignant neoplasm of pancreas, unspecified; K86.3 Pseudocyst of pancreas; E87.1 Hypo-osmolality and hyponatremia; E87.6 Hypokalemia; J45.909 Unspecified asthma, uncomplicated; E86.0 Dehydration; K21.9 Gastro-esophageal reflux disease without esophagitis; I25.10 Atherosclerotic heart disease of native coronary artery without angina pectoris; E78.5 Hyperlipidemia, unspecified; D50.9 Iron deficiency anemia, unspecified; F41.9 Anxiety disorder, unspecified; I10 Essential (primary) hypertension; J44.9 Chronic obstructive pulmonary disease, unspecified; R62.7 Adult failure to thrive; Z92.21 Personal history of antineoplastic chemotherapy; Z88.8 Allergy status to other drugs, medicaments and biological substances; Z79.899 Other long term (current) drug therapy; Z79.82 Long term (current) use of aspirin; Z95.2 Presence of prosthetic heart valve; K64.8 Other hemorrhoids; K42.9 Umbilical hernia without obstruction or gangrene

== ENCOUNTER → 2023-06-01 | Outpatient (CLI) | payer MEDICARE ==
[~2023-06-01] VITALS: Ht 170.2 cm; Wt 65.8 kg
[~2023-06-01] MED LIST changes: +CIPR-249 PO; +DEXA2TA PO; +FERR325T3 PO; +METR-265 PO; +RISATAB3 PO
[2023-06-01 14:30] VITALS: BP 113/67; O2SAT 97
== END ==
LOC: M PAL 14:16
PROVIDERS: ATTEND Nurse Practitioner Adult Health
DX: G89.3 Neoplasm related pain (acute) (chronic) (principal); R10.10 Upper abdominal pain, unspecified; R10.84 Generalized abdominal pain; C25.9 Malignant neoplasm of pancreas, unspecified; R11.2 Nausea with vomiting, unspecified; R63.0 Anorexia; R64 Cachexia; Z51.5 Encounter for palliative care; Z79.82 Long term (current) use of aspirin; Z79.891 Long term (current) use of opiate analgesic; Z79.899 Other long term (current) drug therapy; Z80.51 Family history of malignant neoplasm of kidney; Z87.891 Personal history of nicotine dependence; Z88.8 Allergy status to other drugs, medicaments and biological substances; Z92.21 Personal history of antineoplastic chemotherapy

== ENCOUNTER → 2023-06-16 | Outpatient (CLI) | payer MEDICARE ==
[~2023-06-16] VITALS: Ht 170.2 cm; Wt 62.8 kg
[~2023-06-16] MED LIST changes: -ASPI-161 PO; +ASPI-615 PO
[2023-06-16 10:33] VITALS: BP 105/63; O2SAT 98
== END ==
LOC: M PAL 10:10
PROVIDERS: ATTEND Nurse Practitioner Adult Health
DX: C25.9 Malignant neoplasm of pancreas, unspecified (principal); G89.3 Neoplasm related pain (acute) (chronic); R10.10 Upper abdominal pain, unspecified; R10.84 Generalized abdominal pain; R11.2 Nausea with vomiting, unspecified; R63.0 Anorexia; R64 Cachexia; Z51.5 Encounter for palliative care; Z79.82 Long term (current) use of aspirin; Z79.891 Long term (current) use of opiate analgesic; Z79.899 Other long term (current) drug therapy; Z80.51 Family history of malignant neoplasm of kidney; Z87.891 Personal history of nicotine dependence; Z92.21 Personal history of antineoplastic chemotherapy; Z66 Do not resuscitate

== ENCOUNTER → 2023-07-07 | Outpatient (REF) | payer MEDICARE ==
[~2023-07-07] MED LIST changes: +DULC10SU2 PR; +ONDA8TAB8 MM; +ONDA8TAB8 PO; +OXYC-517 PO; +SENN-186 PO
== END ==
LOC: M LAB REF 13:11
PROVIDERS: ATTEND Internal Medicine
DX: C25.3 Malignant neoplasm of pancreatic duct (principal)

== ENCOUNTER → 2023-07-08 | Outpatient (CLI) | payer MEDICARE ==
[~2023-07-08] VITALS: Ht 170.2 cm; Wt 61.1 kg
[~2023-07-08] MED LIST changes: +FLEEENE12 PR; +FLOM0.4C39 PO
[2023-07-08 08:04] VITALS: BP 133/79; O2SAT 97
== END ==
LOC: M PAL 07:44
PROVIDERS: ATTEND Nurse Practitioner Adult Health
DX: G89.3 Neoplasm related pain (acute) (chronic) (principal); C25.9 Malignant neoplasm of pancreas, unspecified; R10.10 Upper abdominal pain, unspecified; R10.84 Generalized abdominal pain; R11.2 Nausea with vomiting, unspecified; R63.0 Anorexia; R64 Cachexia; Z51.5 Encounter for palliative care; Z79.51 Long term (current) use of inhaled steroids; Z79.82 Long term (current) use of aspirin; Z79.891 Long term (current) use of opiate analgesic; Z79.899 Other long term (current) drug therapy; Z80.51 Family history of malignant neoplasm of kidney; Z87.891 Personal history of nicotine dependence; Z88.8 Allergy status to other drugs, medicaments and biological substances; Z92.21 Personal history of antineoplastic chemotherapy; Z66 Do not resuscitate

== ENCOUNTER 2023-07-10 10:05 | Emergency (ER) | payer MEDICARE ==
[~2023-07-10] VITALS: Ht 170.2 cm; Wt 58.2 kg
[~2023-07-10 10:05] MED LIST changes: -FLEEENE12 PR; -FLOM0.4C39 PO
[2023-07-10 12:00] LABS: BASO % 0.4 % (0.0-1.0); EOS % 0.1 % (0.0-3.0); HEMATOCRIT 38.5 % (42.0-52.0); HEMOGLOBIN 12.5 g/dl (13.5-17.5); LYMPH # 0.8 10^3/uL (1.5-5.0); LYMPH % 8.3 % (24.0-44.0); MEAN CORPUSCULAR HEMOGLOBIN 25.6 pg (27.0-33.0); MEAN CORPUSCULAR HGB CONC 32.5 g/dl (32.0-36.5); MEAN CORPUSCULAR VOLUME 78.7 fl (80.0-96.0); MONO # 0.7 10^3/uL (0.0-0.8); MONO % 6.8 % (2.0-8.0); NEUTROPHILS # 8.5 10^3/uL (1.5-8.5); PLATELET COUNT, AUTOMATED 421 10^3/uL (150-450); RED BLOOD COUNT 4.89 10^6/uL (4.30-6.10); WHITE BLOOD COUNT 10.1 10^3/uL (4.0-10.0)
[2023-07-10] MEDS ORDERED: SODIUM CHLORIDE 0.9% INJ 10 ML SYR IV PRN (12:00)
[2023-07-10] MEDS: METOCLOPRAMIDE INJ 10MG/2ML VIAL IV ONE ×2 (12:06→16:58)
[2023-07-10] MEDS: FAMOTIDINE IV BAG 20 MG in IV 1 EA IV ONE (12:06)
[2023-07-10] MEDS: PANTOPRAZOLE 40MG VIAL IV ONE (12:06)
[2023-07-10] MEDS: MORPHINE 4 MG/ML 1ML VIAL IV ONE ×2 (12:08→14:50)
[2023-07-10] MEDS: NS 1,000 ML IV ONE (12:09)
[2023-07-10 12:20] LABS: LIPASE 92 U/L (12-53)
[2023-07-10 12:22] LABS: ALBUMIN 3.2 G/DL (3.2-5.2); ALKALINE PHOSPHATASE 151 U/L (46-116); ALT/SGPT 17 U/L (7.0-40); AST/SGOT 10 U/L (<34); BILIRUBIN,DIRECT 0.2 MG/DL (<0.4); BILIRUBIN,TOTAL 0.7 MG/DL (0.3-1.2); BLOOD UREA NITROGEN 24 MG/DL (9-23); CALCIUM LEVEL 8.8 MG/DL (8.3-10.6); CARBON DIOXIDE LEVEL 34 MMOL/L (20-31); CHLORIDE LEVEL 93 MMOL/L (98-107); CK-MB VALUE MASS < 1.0 NG/ML (<3.6); CPK CREATINE PHOSPHOKINASE 23 U/L (46-171); CREATININE FOR GFR 0.65 MG/DL (0.70-1.30); GLOMERULAR FILTRATION RATE > 60.0 (>42); GLUCOSE, FASTING 129 MG/DL (74-106); MB/CK RELATIVE INDEX 4.34 (< OR =4); POTASSIUM SERUM 3.8 MMOL/L (3.5-5.1); SODIUM LEVEL 133 MMOL/L (136-145); TOTAL PROTEIN 6.3 G/DL (5.7-8.2)
[2023-07-10] MEDS ORDERED: ISOVUE-370 76% 100ML VIAL As Ordered ONE (12:35)
[2023-07-10] MEDS ORDERED: RISATAB3 PO (13:34)
[2023-07-10] MEDS ORDERED: FERR325T3 PO (13:36)
[2023-07-10] MEDS ORDERED: FLEEENE12 PR (13:38)
[2023-07-10] MEDS ORDERED: FLOM0.4C39 PO (13:38)
[2023-07-10] MEDS ORDERED: HOME MED LIST COMPLETE! XX SCH (13:40)
[2023-07-10] MEDS: MORPHINE 4 MG/ML 1ML VIAL IV PRN (16:58)
[2023-07-10] MEDS: NS 1,000 ML IV SCH (16:59)
[2023-07-10] MEDS ORDERED: SODIUM CHLORIDE NASAL 0.65% SPRAY BTL (OCEAN) PRN (19:35)
[2023-07-10] MEDS ORDERED: EMLA CREAM 5GM TUBE (LIDOCAINE/PRILOCAINE) TOP PRN (19:35)
[2023-07-10] MEDS ORDERED: BISACODYL 10MG SUPP PR PRN (19:35)
[2023-07-10] MEDS ORDERED: FLEET ENEMA PR PRN (19:35)
[2023-07-10] MEDS ORDERED: KETOROLAC 30 MG/ML 1ML VIAL IV PRN ×2 (19:40)
[2023-07-10] MEDS ORDERED: PROCHLORPERAZINE 10MG 2ML VIAL IV PRN (19:40)
[2023-07-10] MEDS: SYMBICORT 160/4.5MCG INHALER 6GM INH SCH (20:00)
[2023-07-10] MEDS: LR 1,000 ML IV SCH (20:40)
[2023-07-10] MEDS: MORPHINE 2 MG/ML 1ML VIAL IV PRN (22:17)
[2023-07-10 23:14] LABS: C REACTIVE PROTEIN QUANTITATIV 1.1 MG/DL (<1.0); MAGNESIUM LEVEL 1.9 MG/DL (1.8-2.4)
[2023-07-10 23:19] LABS: INR 1.25; PARTIAL THROMBOPLASTIN TIME 33.2 SECONDS (24.8-34.2); PROTHROMBIN TIME 15.3 SECONDS (12.5-14.5)
[2023-07-11] MEDS: LR 1,000 ML IV SCH (04:26)
[2023-07-11] MEDS: ALBUTEROL 90 MCG/ACT 8GM HFA INHALER INH PRN (04:34)
[2023-07-11] MEDS ORDERED: BISACODYL 10MG SUPP PR PRN (10:15)
[2023-07-11] MEDS: PANTOPRAZOLE 40MG VIAL IV SCH (11:14)
[2023-07-11] MEDS: ASPIRIN 81MG ENTERIC TABLET PO SCH (11:14)
[2023-07-11 11:49] LABS: HEMATOCRIT 35.1 % (42.0-52.0); HEMOGLOBIN 11.3 g/dl (13.5-17.5); MEAN CORPUSCULAR HEMOGLOBIN 25.8 pg (27.0-33.0); MEAN CORPUSCULAR HGB CONC 32.2 g/dl (32.0-36.5); MEAN CORPUSCULAR VOLUME 80.1 fl (80.0-96.0); PLATELET COUNT, AUTOMATED 279 10^3/uL (150-450); RED BLOOD COUNT 4.38 10^6/uL (4.30-6.10); WHITE BLOOD COUNT 6.7 10^3/uL (4.0-10.0)
[2023-07-11 12:21] LABS: ALBUMIN 2.6 G/DL (3.2-5.2); ALKALINE PHOSPHATASE 106 U/L (46-116); ALT/SGPT 17 U/L (7.0-40); AST/SGOT 12 U/L (<34); BILIRUBIN,TOTAL 0.7 MG/DL (0.3-1.2); BLOOD UREA NITROGEN 15 MG/DL (9-23); CALCIUM LEVEL 8.3 MG/DL (8.3-10.6); CARBON DIOXIDE LEVEL 30 MMOL/L (20-31); CHLORIDE LEVEL 100 MMOL/L (98-107); CREATININE FOR GFR 0.59 MG/DL (0.70-1.30); GLOMERULAR FILTRATION RATE > 60.0 (>42); GLUCOSE, FASTING 96 MG/DL (74-106); POTASSIUM SERUM 3.4 MMOL/L (3.5-5.1); SODIUM LEVEL 136 MMOL/L (136-145); TOTAL PROTEIN 5.1 G/DL (5.7-8.2)
[2023-07-11] MEDS ORDERED: DEXTROSE 50% 50ML SYRINGE IV PRN (12:40)
[2023-07-11] MEDS ORDERED: GLUCOSE 4GM CHEW TABLET PO PRN (12:40)
[2023-07-11] MEDS ORDERED: GLUCAGON INJ 1MG VIAL SC PRN (12:40)
[2023-07-11] MEDS: KCL 10MEQ/100ML SWI (KRUN) 10 MEQ in IV 1 EA IV SCH (13:05)
[2023-07-11] MEDS: HEPARIN SOD (PORCINE) 5000UNITS/ML 1ML VIAL/SYRINGE SQ SCH (13:06)
[2023-07-11] MEDS: D5W/LR 1,000 ML IV SCH (17:41)
[2023-07-11] MEDS: ROSUVASTATIN 10 MG TAB (CRESTOR) PO SCH (20:26)
[2023-07-12 07:36] VITALS: BP 146/84; TEMP 99.2; O2SAT 96
== END 2023-07-12 08:00 | disposition short-term general hospital (02) ==
LOC: M ED 10:05 → EDBD 10:05 → M ED 07-12 08:00
DX: C25.9 Malignant neoplasm of pancreas, unspecified (principal); K31.1 Adult hypertrophic pyloric stenosis; R11.2 Nausea with vomiting, unspecified; I44.4 Left anterior fascicular block; I10 Essential (primary) hypertension; J44.9 Chronic obstructive pulmonary disease, unspecified; K21.9 Gastro-esophageal reflux disease without esophagitis; R51.9 Headache, unspecified; Z88.8 Allergy status to other drugs, medicaments and biological substances; Z79.52 Long term (current) use of systemic steroids; Z79.82 Long term (current) use of aspirin; Z79.83 Long term (current) use of bisphosphonates; Z79.899 Other long term (current) drug therapy
CPT/HCPCS: 71045; 74177; 80048; 80053; 80076; 82150; 82550; 82553; 83690; 83735; 84484; 85025; 85027; 85610; 85730; 86140; 87486; 87581; 87633; 87798; 93005; 93041; 96361; 96365; 96366; 96375; 96376; 99285; C9113; J2765; Q9967

== ENCOUNTER → 2023-08-12 | Outpatient (CLI) | payer MEDICARE ==
[~2023-08-12] VITALS: Ht 170.2 cm; Wt 58.0 kg
[~2023-08-12] MED LIST changes: +ACET-683 JT; -ACET-683 PO; +BUTR10DI TOP; +FLEEENE12 PR; +FLOM0.4C39 PO; +METO10ELUD JT; +OXYC1SOL3 PO
[2023-08-12 14:42] VITALS: BP 111/75; O2SAT 96
== END ==
LOC: M PAL 14:16
PROVIDERS: ATTEND Nurse Practitioner Adult Health
DX: G89.3 Neoplasm related pain (acute) (chronic) (principal); C25.9 Malignant neoplasm of pancreas, unspecified; R11.2 Nausea with vomiting, unspecified; R63.0 Anorexia; R64 Cachexia; Z51.5 Encounter for palliative care; Z79.51 Long term (current) use of inhaled steroids; Z79.82 Long term (current) use of aspirin; Z79.891 Long term (current) use of opiate analgesic; Z79.899 Other long term (current) drug therapy; Z80.51 Family history of malignant neoplasm of kidney; Z87.891 Personal history of nicotine dependence; Z88.8 Allergy status to other drugs, medicaments and biological substances; Z92.21 Personal history of antineoplastic chemotherapy; Z66 Do not resuscitate; Z93.4 Other artificial openings of gastrointestinal tract status

== ENCOUNTER → 2023-08-24 | Outpatient (CLI) | payer MEDICARE ==
[~2023-08-24] VITALS: Ht 170.2 cm; Wt 59.4 kg
[~2023-08-24] MED LIST changes: +ACET160L16 PEG; +CREO3600; +OXYC1SOL3 PEG
[2023-08-24 08:08] VITALS: BP 101/59; O2SAT 97
== END ==
LOC: M PAL 07:48
PROVIDERS: ATTEND Nurse Practitioner Adult Health
DX: G89.3 Neoplasm related pain (acute) (chronic) (principal); C25.9 Malignant neoplasm of pancreas, unspecified; R11.2 Nausea with vomiting, unspecified; R10.32 Left lower quadrant pain; R64 Cachexia; Z51.5 Encounter for palliative care; Z79.51 Long term (current) use of inhaled steroids; Z79.82 Long term (current) use of aspirin; Z79.891 Long term (current) use of opiate analgesic; Z79.899 Other long term (current) drug therapy; Z80.51 Family history of malignant neoplasm of kidney; Z87.891 Personal history of nicotine dependence; Z88.8 Allergy status to other drugs, medicaments and biological substances; Z92.21 Personal history of antineoplastic chemotherapy; Z66 Do not resuscitate; Z93.4 Other artificial openings of gastrointestinal tract status

== ENCOUNTER → 2023-09-15 | Outpatient (CLI) | payer MEDICARE ==
[~2023-09-15] VITALS: Ht 170.2 cm; Wt 62.5 kg
[~2023-09-15] MED LIST changes: +BUTR1DIS TOP; +DOXY-440 PO; -DOXY-444 PO; +MORP1SOL4 PEG; -ROSU10TA6 PO; +ROSU10TA61 PO
[2023-09-15 08:47] VITALS: BP 117/67; O2SAT 96
== END ==
LOC: M PAL 08:35
PROVIDERS: ATTEND Nurse Practitioner Adult Health
DX: G89.3 Neoplasm related pain (acute) (chronic) (principal); C25.9 Malignant neoplasm of pancreas, unspecified; R11.2 Nausea with vomiting, unspecified; R10.32 Left lower quadrant pain; R64 Cachexia; Z51.5 Encounter for palliative care; Z79.51 Long term (current) use of inhaled steroids; Z79.82 Long term (current) use of aspirin; Z79.891 Long term (current) use of opiate analgesic; Z79.899 Other long term (current) drug therapy; Z80.51 Family history of malignant neoplasm of kidney; Z87.891 Personal history of nicotine dependence; Z88.8 Allergy status to other drugs, medicaments and biological substances; Z92.21 Personal history of antineoplastic chemotherapy; Z66 Do not resuscitate; Z93.4 Other artificial openings of gastrointestinal tract status

== ENCOUNTER → 2023-10-01 | Outpatient (CLI) | payer MEDICARE ==
[~2023-10-01] MED LIST changes: +GASTROGRAFIN SOLUTION 30ML As Ordered ONE; +ISOVUE-370 76% 100ML VIAL As Ordered ONE; +ONDA-284 MM; +ONDA-284 PO; -ONDA8TAB8 MM; -ONDA8TAB8 PO
== END ==
LOC: M RAD 10:16
PROVIDERS: ATTEND Specialist
DX: C25.9 Malignant neoplasm of pancreas, unspecified (principal); J43.9 Emphysema, unspecified; Z96.89 Presence of other specified functional implants; K56.41 Fecal impaction
CPT/HCPCS: 71260; 74177; Q9963; Q9967

== ENCOUNTER → 2023-10-13 | Outpatient (CLI) | payer MEDICARE ==
[~2023-10-13] MED LIST changes: -GASTROGRAFIN SOLUTION 30ML As Ordered ONE; -ISOVUE-370 76% 100ML VIAL As Ordered ONE
== END ==
LOC: M PAL 10:20
PROVIDERS: ATTEND Nurse Practitioner Adult Health
DX: G89.3 Neoplasm related pain (acute) (chronic) (principal); C25.9 Malignant neoplasm of pancreas, unspecified; R43.8 Other disturbances of smell and taste; Z66 Do not resuscitate; Z51.5 Encounter for palliative care; Z79.891 Long term (current) use of opiate analgesic; Z79.899 Other long term (current) drug therapy; Z79.82 Long term (current) use of aspirin; Z88.1 Allergy status to other antibiotic agents; Z88.8 Allergy status to other drugs, medicaments and biological substances; Z80.51 Family history of malignant neoplasm of kidney; Z87.891 Personal history of nicotine dependence; Z93.4 Other artificial openings of gastrointestinal tract status

== ENCOUNTER 2023-11-04 08:58 | Emergency (ER) | payer MEDICARE ==
[~2023-11-04] VITALS: Ht 170.2 cm; Wt 67.8 kg
[2023-11-04 08:59] VITALS: BP 137/71; TEMP 98.6; O2SAT 96
[2023-11-04] MEDS ORDERED: MM S100C PO (09:15)
[2023-11-04] MEDS ORDERED: METO5SOL19 (09:15)
[2023-11-04] MEDS: LIDOCAINE W/EPINEPHRINE 1% 20ML VIAL SC ONE (11:07)
[2023-11-04] MEDS ORDERED: GASTROGRAFIN SOLUTION 30ML As Ordered ONE (12:18)
== END 2023-11-04 13:44 | disposition home or self-care (01) ==
LOC: M ED 08:58
DX: Z43.1 Encounter for attention to gastrostomy (principal); K59.00 Constipation, unspecified; J45.909 Unspecified asthma, uncomplicated; C25.9 Malignant neoplasm of pancreas, unspecified; R51.9 Headache, unspecified; I10 Essential (primary) hypertension; Z79.52 Long term (current) use of systemic steroids; Z79.82 Long term (current) use of aspirin; Z79.899 Other long term (current) drug therapy; Z88.8 Allergy status to other drugs, medicaments and biological substances; Z79.811 Long term (current) use of aromatase inhibitors
CPT/HCPCS: 74018; 99282; Q9963

== ENCOUNTER → 2023-11-08 | Outpatient (CLI) | payer MEDICARE ==
[~2023-11-08] MED LIST changes: +AMOX875T2 PO; +CAPE1TAB2 PO; +METO5SOL19; +MM S100C PO; +NYST-38 PO
== END ==
LOC: M ONCR 13:51
PROVIDERS: ATTEND General Practice
DX: C25.0 Malignant neoplasm of head of pancreas (principal); I44.2 Atrioventricular block, complete; Z87.891 Personal history of nicotine dependence; Z92.21 Personal history of antineoplastic chemotherapy; Z93.1 Gastrostomy status; Z95.0 Presence of cardiac pacemaker; Z79.899 Other long term (current) drug therapy; Z88.0 Allergy status to penicillin

== ENCOUNTER 2023-11-16 13:48 | Outpatient (RCR) | payer MEDICARE ==
[~2023-11-16 13:48] MED LIST changes: -AMOX875T2 PO; -NYST-38 PO
[2023-11-19] MEDS ORDERED: AMOX875T2 PO (09:42)
== END 2023-11-24 ==
LOC: M ONCR 13:48
PROVIDERS: ATTEND General Practice
DX: Z51.0 Encounter for antineoplastic radiation therapy (principal); C25.0 Malignant neoplasm of head of pancreas

== ENCOUNTER → 2023-11-19 | Outpatient (CLI) | payer MEDICARE ==
[~2023-11-19] VITALS: Ht 170.2 cm; Wt 69.8 kg
[~2023-11-19] MED LIST changes: +ACET160L16 JT; +AMOX875T2 PO; +ASPI81TA26 PO; +CIPR750T2 PO; -CREO3600; +CREO3600 PO; +CVS1CRE56 TOP; +DOCU100C16 PO; +LOMO2.5T PO; +LOPE1LIQ18 PO; +MORP15TA2 PO; +MORP1SOL4 PO; +NYST-38 PO; +OLAN1TAB16 PO; +PEPC40TA12 PO; +SYMB16INH INH; +VENTAER INH; +XANA0.5T PO; +XELO1TAB PO
[2023-11-19 08:52] VITALS: BP 133/75; O2SAT 95
== END ==
LOC: M PAL 08:36
PROVIDERS: ATTEND Nurse Practitioner Adult Health
DX: C25.9 Malignant neoplasm of pancreas, unspecified (principal); G89.3 Neoplasm related pain (acute) (chronic); R43.8 Other disturbances of smell and taste; J44.1 Chronic obstructive pulmonary disease with (acute) exacerbation; L03.311 Cellulitis of abdominal wall; F41.9 Anxiety disorder, unspecified; Z66 Do not resuscitate; Z51.5 Encounter for palliative care; Z79.891 Long term (current) use of opiate analgesic; Z79.899 Other long term (current) drug therapy; Z79.82 Long term (current) use of aspirin; Z88.1 Allergy status to other antibiotic agents; Z88.8 Allergy status to other drugs, medicaments and biological substances; Z80.51 Family history of malignant neoplasm of kidney; Z87.891 Personal history of nicotine dependence; Z93.4 Other artificial openings of gastrointestinal tract status

== ENCOUNTER → 2023-12-09 | Outpatient (CLI) | payer MEDICARE | LOC: M PAL 08:02 | PROVIDERS: ATTEND Nurse Practitioner Adult Health | DX: C25.9 Malignant neoplasm of pancreas, unspecified (principal); G89.3 Neoplasm related pain (acute) (chronic); R19.7 Diarrhea, unspecified; B37.0 Candidal stomatitis; R43.8 Other disturbances of smell and taste; J44.9 Chronic obstructive pulmonary disease, unspecified; Z66 Do not resuscitate; Z51.5 Encounter for palliative care; Z79.82 Long term (current) use of aspirin; Z79.891 Long term (current) use of opiate analgesic; Z79.899 Other long term (current) drug therapy; Z88.1 Allergy status to other antibiotic agents; Z88.8 Allergy status to other drugs, medicaments and biological substances; Z80.51 Family history of malignant neoplasm of kidney; Z87.891 Personal history of nicotine dependence; Z93.4 Other artificial openings of gastrointestinal tract status ==

== ENCOUNTER → 2023-12-17 | Outpatient (CLI) | payer MEDICARE ==
[~2023-12-17] MED LIST changes: -ACET160L16 JT; -ASPI81TA26 PO; -CIPR750T2 PO; -CVS1CRE56 TOP; -DOCU100C16 PO; +ISOVUE-300 61% 100ML VIAL As Ordered ONE; +LIDOCAINE 1% MDV 20ML VIAL As Ordered ONE; +LIDOCAINE 2% JELLY 6ML SYRINGE As Ordered ONE; -LOMO2.5T PO; +MIDAZOLAM INJ 2MG/2ML VIAL As Ordered ONE; -MORP15TA2 PO; -MORP1SOL4 PO; +NS 1,000 ML IV SCH; -SYMB16INH INH; -VENTAER INH; -XANA0.5T PO; -XELO1TAB PO; +fentaNYL 100 MCG/2 ML INJECTION As Ordered ONE
[2023-12-17 12:13] VITALS: TEMP 98.6
[2023-12-17 14:15] VITALS: BP 122/63; O2SAT 99
== END ==
LOC: M IRPRO 11:58
PROVIDERS: ATTEND General Practice
DX: C25.0 Malignant neoplasm of head of pancreas (principal)
CPT/HCPCS: 49451; 99152; C1729; J2250; J3010; Q9967

== ENCOUNTER → 2023-12-20 | Outpatient (CLI) | payer MEDICARE ==
[~2023-12-20] MED LIST changes: -ISOVUE-300 61% 100ML VIAL As Ordered ONE; +ISOVUE-300 61% 100ML VIAL ONE; -LIDOCAINE 1% MDV 20ML VIAL As Ordered ONE; +LIDOCAINE 1% MDV 20ML VIAL ONE; -LIDOCAINE 2% JELLY 6ML SYRINGE As Ordered ONE; -MIDAZOLAM INJ 2MG/2ML VIAL As Ordered ONE; +MIDAZOLAM INJ 2MG/2ML VIAL ONE; -NS 1,000 ML IV SCH; -fentaNYL 100 MCG/2 ML INJECTION As Ordered ONE; +fentaNYL 100 MCG/2 ML INJECTION ONE
[2023-12-20 10:15] VITALS: TEMP 97.9
[2023-12-20 11:18] LABS: HEMATOCRIT 34.4 % (42.0-52.0); HEMOGLOBIN 11.3 g/dl (13.5-17.5); MEAN CORPUSCULAR HEMOGLOBIN 27.3 pg (27.0-33.0); MEAN CORPUSCULAR HGB CONC 32.8 g/dl (32.0-36.5); MEAN CORPUSCULAR VOLUME 83.1 fl (80.0-96.0); PLATELET COUNT, AUTOMATED 138 10^3/uL (150-450); RED BLOOD COUNT 4.14 10^6/uL (4.30-6.10); WHITE BLOOD COUNT 7.2 10^3/uL (4.0-10.0)
[2023-12-20 11:51] LABS: BLOOD UREA NITROGEN 15 MG/DL (9-23); CALCIUM LEVEL 8.2 MG/DL (8.3-10.6); CARBON DIOXIDE LEVEL 27 MMOL/L (20-31); CHLORIDE LEVEL 103 MMOL/L (98-107); CREATININE FOR GFR 0.67 MG/DL (0.70-1.30); GLOMERULAR FILTRATION RATE > 60.0 (>42); GLUCOSE, FASTING 126 MG/DL (74-106); POTASSIUM SERUM 3.7 MMOL/L (3.5-5.1); SODIUM LEVEL 133 MMOL/L (136-145)
[2023-12-20 12:07] VITALS: BP 116/60; O2SAT 98
[2023-12-20 12:08] LABS: CA19-9 TUMOR MARKER,CARBOHYDRA 419.2 U/ML (<35.0)
== END ==
LOC: M RAD 09:43
PROVIDERS: ATTEND Radiology Diagnostic Radiology
DX: C25.0 Malignant neoplasm of head of pancreas (principal); Z88.4 Allergy status to anesthetic agent
CPT/HCPCS: 49451; 74176; 80048; 85027; 86301; 99152; J2250; J3010; Q9967

== ENCOUNTER 2023-12-24 08:04 | Outpatient (RCR) | payer MEDICARE ==
[~2023-12-24 08:04] MED LIST changes: -ISOVUE-300 61% 100ML VIAL ONE; -LIDOCAINE 1% MDV 20ML VIAL ONE; -MIDAZOLAM INJ 2MG/2ML VIAL ONE; -fentaNYL 100 MCG/2 ML INJECTION ONE
[2023-12-24] MEDS ORDERED: NYST-38 PO (11:58)
== END 2023-12-25 ==
LOC: M ONCR 08:04
PROVIDERS: ATTEND General Practice
DX: Z51.0 Encounter for antineoplastic radiation therapy (principal); C25.0 Malignant neoplasm of head of pancreas

== ENCOUNTER 2023-12-24 10:44 | Outpatient (RCR) | payer MEDICARE ==
[2023-03-26 09:58] VITALS: BP 104/68; O2SAT 100
[2023-04-09 14:31] LABS: BASO # 0.1 10^3/uL (0.0-0.2); BASO % 1.2 % (0.0-1.0); EOS # 0.2 10^3/uL (0.0-0.5); EOS % 4.1 % (0.0-3.0); HEMATOCRIT 37.5 % (42.0-52.0); HEMOGLOBIN 11.8 g/dl (13.5-17.5); LYMPH % 19.5 % (24.0-44.0); MEAN CORPUSCULAR HEMOGLOBIN 26.5 pg (27.0-33.0); MEAN CORPUSCULAR HGB CONC 31.5 g/dl (32.0-36.5); MEAN CORPUSCULAR VOLUME 84.1 fl (80.0-96.0); MONO # 0.5 10^3/uL (0.0-0.8); MONO % 8.7 % (2.0-8.0); NEUTROPHILS # 3.4 10^3/uL (1.5-8.5); NEUTROPHILS % 66.1 % (36.0-66.0); PLATELET COUNT, AUTOMATED 215 10^3/uL (150-450); RED BLOOD COUNT 4.46 10^6/uL (4.30-6.10); WHITE BLOOD COUNT 5.2 10^3/uL (4.0-10.0)
[2023-04-09 14:58] LABS: ALBUMIN 3.3 G/DL (3.2-5.2); ALKALINE PHOSPHATASE 128 U/L (46-116); ALT/SGPT 22 U/L (7.0-40); AST/SGOT 10 U/L (<34); BILIRUBIN,TOTAL 0.5 MG/DL (0.3-1.2); BLOOD UREA NITROGEN 17 MG/DL (9-23); CALCIUM LEVEL 8.6 MG/DL (8.3-10.6); CARBON DIOXIDE LEVEL 29 MMOL/L (20-31); CHLORIDE LEVEL 104 MMOL/L (98-107); CREATININE FOR GFR 0.77 MG/DL (0.70-1.30); GLOMERULAR FILTRATION RATE > 60.0 (>42); GLUCOSE, FASTING 111 MG/DL (74-106); POTASSIUM SERUM 4.5 MMOL/L (3.5-5.1); SODIUM LEVEL 138 MMOL/L (136-145); TOTAL PROTEIN 6.3 G/DL (5.7-8.2)
[2023-04-12 08:20] VITALS: BP 103/63; O2SAT 96
[2023-04-12] MEDS: PALONOSETRON 0.25MG/5ML VIAL (ALOXI) IV SCH (09:59)
[2023-04-12] MEDS: FOSAPREPITANT 150 MG in NS 245 ML IV SCH (09:59)
[2023-04-12] MEDS: OXALIPLATIN IV SCH (10:54)
[2023-04-12] MEDS: D5W IV SCH ×3 (10:54→13:43)
[2023-04-12] MEDS: LEUCOVORIN CALCIUM IV SCH (13:11)
[2023-04-12] MEDS: IRINOTECAN HYDROCHLORIDE IV SCH (13:43)
[2023-04-12] MEDS: FLUOROURACIL IV SCH (15:23)
[2023-04-12] MEDS: NS IV SCH (15:23)
[2023-04-14 13:18] VITALS: BP 97/59; O2SAT 100
[2023-04-15] MEDS: PEGFILGRASTIM 6 MG 0.6ML SYR (NEULASTA) SC SCH (10:48)
[2023-04-27 11:34] LABS: BASO # 0.1 10^3/uL (0.0-0.2); BASO % 0.6 % (0.0-1.0); EOS # 0.1 10^3/uL (0.0-0.5); EOS % 1.6 % (0.0-3.0); HEMOGLOBIN 11.2 g/dl (13.5-17.5); LYMPH # 0.8 10^3/uL (1.5-5.0); LYMPH % 9.2 % (24.0-44.0); MEAN CORPUSCULAR HEMOGLOBIN 25.9 pg (27.0-33.0); MEAN CORPUSCULAR VOLUME 80.8 fl (80.0-96.0); MONO # 0.5 10^3/uL (0.0-0.8); MONO % 6.3 % (2.0-8.0); NEUTROPHILS # 6.8 10^3/uL (1.5-8.5); NEUTROPHILS % 79.4 % (36.0-66.0); PLATELET COUNT, AUTOMATED 187 10^3/uL (150-450); RED BLOOD COUNT 4.33 10^6/uL (4.30-6.10); WHITE BLOOD COUNT 8.6 10^3/uL (4.0-10.0)
[2023-04-27 12:06] LABS: ALBUMIN 2.8 G/DL (3.2-5.2); ALKALINE PHOSPHATASE 156 U/L (46-116); ALT/SGPT 22 U/L (7.0-40); AST/SGOT 15 U/L (<34); BILIRUBIN,TOTAL 0.3 MG/DL (0.3-1.2); BLOOD UREA NITROGEN 9 MG/DL (9-23); CALCIUM LEVEL 7.8 MG/DL (8.3-10.6); CARBON DIOXIDE LEVEL 29 MMOL/L (20-31); CHLORIDE LEVEL 105 MMOL/L (98-107); CREATININE FOR GFR 0.82 MG/DL (0.70-1.30); GLOMERULAR FILTRATION RATE > 60.0 (>42); GLUCOSE, FASTING 121 MG/DL (74-106); POTASSIUM SERUM 3.4 MMOL/L (3.5-5.1); SODIUM LEVEL 139 MMOL/L (136-145); TOTAL PROTEIN 5.4 G/DL (5.7-8.2)
[2023-04-28 08:13] VITALS: BP 115/67; O2SAT 99
[2023-04-28 09:45] LABS: LIPASE 50 U/L (12-53)
[2023-05-03] MEDS: SODIUM CHLORIDE 0.9% INJ 10 ML SYR IV PRN (08:56)
[2023-05-03 09:08] VITALS: BP 93/59; O2SAT 98
[2023-05-03 09:42] LABS: BASO # 0.1 10^3/uL (0.0-0.2); BASO % 1.2 % (0.0-1.0); EOS # 0.1 10^3/uL (0.0-0.5); EOS % 1.8 % (0.0-3.0); HEMATOCRIT 35.7 % (42.0-52.0); HEMOGLOBIN 11.3 g/dl (13.5-17.5); LYMPH % 13.8 % (24.0-44.0); MEAN CORPUSCULAR HEMOGLOBIN 25.7 pg (27.0-33.0); MEAN CORPUSCULAR HGB CONC 31.7 g/dl (32.0-36.5); MEAN CORPUSCULAR VOLUME 81.3 fl (80.0-96.0); MONO # 0.5 10^3/uL (0.0-0.8); MONO % 7.2 % (2.0-8.0); NEUTROPHILS # 5.3 10^3/uL (1.5-8.5); NEUTROPHILS % 73.8 % (36.0-66.0); PLATELET COUNT, AUTOMATED 361 10^3/uL (150-450); RED BLOOD COUNT 4.39 10^6/uL (4.30-6.10); WHITE BLOOD COUNT 7.2 10^3/uL (4.0-10.0)
[2023-05-03 09:59] LABS: ALBUMIN 3.1 G/DL (3.2-5.2); ALKALINE PHOSPHATASE 140 U/L (46-116); ALT/SGPT 17 U/L (7.0-40); AST/SGOT 12 U/L (<34); BILIRUBIN,TOTAL 0.4 MG/DL (0.3-1.2); BLOOD UREA NITROGEN 11 MG/DL (9-23); CALCIUM LEVEL 8.5 MG/DL (8.3-10.6); CARBON DIOXIDE LEVEL 28 MMOL/L (20-31); CHLORIDE LEVEL 107 MMOL/L (98-107); CREATININE FOR GFR 0.87 MG/DL (0.70-1.30); GLOMERULAR FILTRATION RATE > 60.0 (>42); GLUCOSE, FASTING 115 MG/DL (74-106); POTASSIUM SERUM 3.8 MMOL/L (3.5-5.1); SODIUM LEVEL 140 MMOL/L (136-145); TOTAL PROTEIN 6.2 G/DL (5.7-8.2)
[2023-05-04 08:05] VITALS: BP 98/58; O2SAT 97
[2023-05-04] MEDS: FOSAPREPITANT 150 MG in NS 245 ML IV SCH (08:37)
[2023-05-04] MEDS: PALONOSETRON 0.25MG/5ML VIAL (ALOXI) IV SCH (08:37)
[2023-05-04] MEDS: D5W IV SCH ×3 (09:50→12:32)
[2023-05-04] MEDS: OXALIPLATIN IV SCH (09:50)
[2023-05-04] MEDS: LEUCOVORIN CALCIUM IV SCH (12:02)
[2023-05-04] MEDS: IRINOTECAN HYDROCHLORIDE IV SCH (12:32)
[2023-05-04] MEDS: NS IV SCH (14:08)
[2023-05-04] MEDS: FLUOROURACIL IV SCH (14:08)
[2023-05-06 12:10] VITALS: BP 98/51; O2SAT 97
[2023-05-06] MEDS: PEGFILGRASTIM 6 MG 0.6ML SYR (NEULASTA) SC SCH (12:21)
[2023-05-11 14:24] VITALS: BP 122/71; O2SAT 97
[2023-05-11] MEDS: NS (Normal Saline) 0.9% 1,000 ML IV ONE (15:43)
[2023-05-11] MEDS: NS IV ONE (16:05)
[2023-05-11] MEDS: ONDANSETRON IV ONE (16:05)
[2023-05-17] MEDS: SODIUM CHLORIDE 0.9% INJ 10 ML SYR IV PRN (10:21)
[2023-05-17 10:46] LABS: BASO % 0.2 % (0.0-1.0); EOS % 0.3 % (0.0-3.0); HEMATOCRIT 32.9 % (42.0-52.0); HEMOGLOBIN 10.8 g/dl (13.5-17.5); LYMPH # 0.6 10^3/uL (1.5-5.0); MEAN CORPUSCULAR HGB CONC 32.8 g/dl (32.0-36.5); MEAN CORPUSCULAR VOLUME 76.2 fl (80.0-96.0); MONO # 1.2 10^3/uL (0.0-0.8); MONO % 12.7 % (2.0-8.0); NEUTROPHILS # 7.7 10^3/uL (1.5-8.5); NEUTROPHILS % 79.9 % (36.0-66.0); PLATELET COUNT, AUTOMATED 283 10^3/uL (150-450); RED BLOOD COUNT 4.32 10^6/uL (4.30-6.10); WHITE BLOOD COUNT 9.6 10^3/uL (4.0-10.0)
[2023-05-17 11:53] VITALS: BP 96/63; O2SAT 96
[2023-05-17 12:03] LABS: ALBUMIN 2.5 G/DL (3.2-5.2); ALKALINE PHOSPHATASE 185 U/L (46-116); ALT/SGPT 11 U/L (7.0-40); AST/SGOT 9 U/L (<34); BILIRUBIN,TOTAL 0.4 MG/DL (0.3-1.2); BLOOD UREA NITROGEN 9 MG/DL (9-23); CALCIUM LEVEL 8.3 MG/DL (8.3-10.6); CARBON DIOXIDE LEVEL 29 MMOL/L (20-31); CHLORIDE LEVEL 96 MMOL/L (98-107); CREATININE FOR GFR 0.89 MG/DL (0.70-1.30); GLOMERULAR FILTRATION RATE > 60.0 (>42); GLUCOSE, FASTING 128 MG/DL (74-106); POTASSIUM SERUM 2.7 MMOL/L (3.5-5.1); SODIUM LEVEL 131 MMOL/L (136-145); TOTAL PROTEIN 6.2 G/DL (5.7-8.2)
[2023-05-31 11:24] VITALS: BP 145/77; O2SAT 95
[2023-05-31 11:24] LABS: BASO # 0.1 10^3/uL (0.0-0.2); BASO % 0.3 % (0.0-1.0); EOS % 0.1 % (0.0-3.0); HEMATOCRIT 33.3 % (42.0-52.0); HEMOGLOBIN 10.6 g/dl (13.5-17.5); LYMPH # 0.8 10^3/uL (1.5-5.0); LYMPH % 4.5 % (24.0-44.0); MEAN CORPUSCULAR HEMOGLOBIN 24.9 pg (27.0-33.0); MEAN CORPUSCULAR HGB CONC 31.8 g/dl (32.0-36.5); MEAN CORPUSCULAR VOLUME 78.2 fl (80.0-96.0); MONO # 0.9 10^3/uL (0.0-0.8); MONO % 5.3 % (2.0-8.0); NEUTROPHILS % 89.2 % (36.0-66.0); PLATELET COUNT, AUTOMATED 458 10^3/uL (150-450); RED BLOOD COUNT 4.26 10^6/uL (4.30-6.10); WHITE BLOOD COUNT 16.8 10^3/uL (4.0-10.0)
[2023-05-31 11:51] LABS: ALBUMIN 2.3 G/DL (3.2-5.2); ALKALINE PHOSPHATASE 151 U/L (46-116); ALT/SGPT < 9 U/L (7.0-40); AST/SGOT < 8 U/L (<34); BILIRUBIN,TOTAL 0.3 MG/DL (0.3-1.2); BLOOD UREA NITROGEN 8 MG/DL (9-23); CALCIUM LEVEL 7.8 MG/DL (8.3-10.6); CARBON DIOXIDE LEVEL 29 MMOL/L (20-31); CHLORIDE LEVEL 97 MMOL/L (98-107); CREATININE FOR GFR 0.64 MG/DL (0.70-1.30); GLOMERULAR FILTRATION RATE > 60.0 (>42); GLUCOSE, FASTING 115 MG/DL (74-106); POTASSIUM SERUM 3.7 MMOL/L (3.5-5.1); SODIUM LEVEL 133 MMOL/L (136-145); TOTAL PROTEIN 5.8 G/DL (5.7-8.2)
[2023-06-16 11:40] VITALS: BP 101/67; O2SAT 98
[2023-07-05 12:55] VITALS: BP 103/62; O2SAT 98
[2023-07-05] MEDS: diphenhydrAMINE 25MG CAP PO SCH (13:10)
[2023-07-05] MEDS: ACETAMINOPHEN TAB 650MG DOSE (2X325MG) PO SCH (13:11)
[2023-07-05] MEDS: IRON SUCROSE 200 MG in NS 100 ML IV SCH (13:37)
[2023-07-05] MEDS: SODIUM CHLORIDE 0.9% INJ 10 ML SYR IV PRN (14:50)
[2023-07-05 15:00] VITALS: BP 104/67; O2SAT 99
[2023-08-19 08:47] VITALS: BP 107/63; O2SAT 99
[2023-08-19 09:59] LABS: BASO # 0.1 10^3/uL (0.0-0.2); BASO % 0.7 % (0.0-1.0); EOS # 0.1 10^3/uL (0.0-0.5); EOS % 1.6 % (0.0-3.0); HEMATOCRIT 33.6 % (42.0-52.0); HEMOGLOBIN 10.4 g/dl (13.5-17.5); LYMPH # 1.1 10^3/uL (1.5-5.0); LYMPH % 13.4 % (24.0-44.0); MEAN CORPUSCULAR VOLUME 87.3 fl (80.0-96.0); MONO # 0.6 10^3/uL (0.0-0.8); MONO % 6.9 % (2.0-8.0); NEUTROPHILS # 6.4 10^3/uL (1.5-8.5); NEUTROPHILS % 77.2 % (36.0-66.0); PLATELET COUNT, AUTOMATED 232 10^3/uL (150-450); RED BLOOD COUNT 3.85 10^6/uL (4.30-6.10); WHITE BLOOD COUNT 8.3 10^3/uL (4.0-10.0)
[2023-08-19 10:26] LABS: ALKALINE PHOSPHATASE 141 U/L (46-116); ALT/SGPT 39 U/L (7.0-40); AST/SGOT 14 U/L (<34); BILIRUBIN,TOTAL 0.5 MG/DL (0.3-1.2); BLOOD UREA NITROGEN 17 MG/DL (9-23); CALCIUM LEVEL 8.8 MG/DL (8.3-10.6); CARBON DIOXIDE LEVEL 28 MMOL/L (20-31); CHLORIDE LEVEL 98 MMOL/L (98-107); GLOMERULAR FILTRATION RATE > 60.0 (>42); GLUCOSE, FASTING 122 MG/DL (74-106); POTASSIUM SERUM 4.5 MMOL/L (3.5-5.1); SODIUM LEVEL 133 MMOL/L (136-145)
[2023-08-19 10:47] LABS: CA19-9 TUMOR MARKER,CARBOHYDRA 225.5 U/ML (<35.0)
[2023-09-10 08:50] VITALS: BP 98/64; O2SAT 94
[2023-09-10] MEDS: SODIUM CHLORIDE 0.9% INJ 10 ML SYR IV PRN (09:56)
[2023-09-10 10:05] LABS: BASO % 0.3 % (0.0-1.0); EOS # 0.1 10^3/uL (0.0-0.5); EOS % 1.2 % (0.0-3.0); HEMATOCRIT 36.4 % (42.0-52.0); HEMOGLOBIN 11.5 g/dl (13.5-17.5); LYMPH # 0.6 10^3/uL (1.5-5.0); LYMPH % 5.2 % (24.0-44.0); MEAN CORPUSCULAR HEMOGLOBIN 27.6 pg (27.0-33.0); MEAN CORPUSCULAR HGB CONC 31.6 g/dl (32.0-36.5); MEAN CORPUSCULAR VOLUME 87.3 fl (80.0-96.0); MONO # 0.2 10^3/uL (0.0-0.8); MONO % 1.5 % (2.0-8.0); NEUTROPHILS # 10.3 10^3/uL (1.5-8.5); NEUTROPHILS % 91.4 % (36.0-66.0); PLATELET COUNT, AUTOMATED 226 10^3/uL (150-450); RED BLOOD COUNT 4.17 10^6/uL (4.30-6.10); WHITE BLOOD COUNT 11.3 10^3/uL (4.0-10.0)
[2023-09-10 10:34] LABS: ALBUMIN 3.4 G/DL (3.2-5.2); ALKALINE PHOSPHATASE 142 U/L (46-116); ALT/SGPT 27 U/L (7.0-40); AST/SGOT 13 U/L (<34); BILIRUBIN,TOTAL 0.6 MG/DL (0.3-1.2); BLOOD UREA NITROGEN 20 MG/DL (9-23); CALCIUM LEVEL 8.6 MG/DL (8.3-10.6); CARBON DIOXIDE LEVEL 27 MMOL/L (20-31); CHLORIDE LEVEL 104 MMOL/L (98-107); CREATININE FOR GFR 0.58 MG/DL (0.70-1.30); GLOMERULAR FILTRATION RATE > 60.0 (>42); GLUCOSE, FASTING 126 MG/DL (74-106); POTASSIUM SERUM 4.4 MMOL/L (3.5-5.1); SODIUM LEVEL 137 MMOL/L (136-145); TOTAL PROTEIN 6.5 G/DL (5.7-8.2)
[2023-09-10 10:46] LABS: CHOLESTEROL RISK RATIO 2.75 (<5); HDL CHOLESTEROL 44.6 MG/DL (>40); LDL CHOLESTEROL 56.4 MG/DL (<100); NON-HDL-C 78.4 MG/DL
[2023-09-10 11:04] LABS: CA19-9 TUMOR MARKER,CARBOHYDRA 285.6 U/ML (<35.0)
[2023-10-01 09:20] VITALS: BP 127/73; O2SAT 94
[2023-10-26 09:00] LABS: BASO # 0.1 10^3/uL (0.0-0.2); BASO % 0.5 % (0.0-1.0); EOS # 0.3 10^3/uL (0.0-0.5); EOS % 2.7 % (0.0-3.0); HEMATOCRIT 35.9 % (42.0-52.0); HEMOGLOBIN 11.6 g/dl (13.5-17.5); LYMPH # 1.2 10^3/uL (1.5-5.0); LYMPH % 11.2 % (24.0-44.0); MEAN CORPUSCULAR HEMOGLOBIN 27.7 pg (27.0-33.0); MEAN CORPUSCULAR HGB CONC 32.3 g/dl (32.0-36.5); MEAN CORPUSCULAR VOLUME 85.7 fl (80.0-96.0); MONO # 0.9 10^3/uL (0.0-0.8); MONO % 8.3 % (2.0-8.0); NEUTROPHILS # 8.3 10^3/uL (1.5-8.5); NEUTROPHILS % 76.7 % (36.0-66.0); PLATELET COUNT, AUTOMATED 219 10^3/uL (150-450); RED BLOOD COUNT 4.19 10^6/uL (4.30-6.10); WHITE BLOOD COUNT 10.9 10^3/uL (4.0-10.0)
[2023-10-26 09:33] LABS: ALBUMIN 3.6 G/DL (3.2-5.2); ALKALINE PHOSPHATASE 144 U/L (46-116); ALT/SGPT 24 U/L (7.0-40); AST/SGOT 8 U/L (<34); BILIRUBIN,TOTAL 0.6 MG/DL (0.3-1.2); BLOOD UREA NITROGEN 20 MG/DL (9-23); CALCIUM LEVEL 8.9 MG/DL (8.3-10.6); CARBON DIOXIDE LEVEL 29 MMOL/L (20-31); CHLORIDE LEVEL 104 MMOL/L (98-107); CREATININE FOR GFR 0.72 MG/DL (0.70-1.30); GLOMERULAR FILTRATION RATE > 60.0 (>42); GLUCOSE, FASTING 117 MG/DL (74-106); POTASSIUM SERUM 4.5 MMOL/L (3.5-5.1); SODIUM LEVEL 137 MMOL/L (136-145); TOTAL PROTEIN 6.6 G/DL (5.7-8.2)
[2023-10-29 10:40] VITALS: BP 126/67; O2SAT 97
[2023-11-22 11:28] LABS: BASO % 0.5 % (0.0-1.0); EOS # 0.2 10^3/uL (0.0-0.5); HEMATOCRIT 34.3 % (42.0-52.0); LYMPH # 0.7 10^3/uL (1.5-5.0); LYMPH % 11.7 % (24.0-44.0); MEAN CORPUSCULAR HGB CONC 32.1 g/dl (32.0-36.5); MEAN CORPUSCULAR VOLUME 84.1 fl (80.0-96.0); MONO # 0.5 10^3/uL (0.0-0.8); MONO % 7.5 % (2.0-8.0); NEUTROPHILS # 4.6 10^3/uL (1.5-8.5); NEUTROPHILS % 77.1 % (36.0-66.0); PLATELET COUNT, AUTOMATED 212 10^3/uL (150-450); RED BLOOD COUNT 4.08 10^6/uL (4.30-6.10)
[2023-11-22 11:59] LABS: ALBUMIN 3.2 G/DL (3.2-5.2); ALKALINE PHOSPHATASE 126 U/L (46-116); ALT/SGPT 25 U/L (7.0-40); AST/SGOT 11 U/L (<34); BILIRUBIN,TOTAL 0.4 MG/DL (0.3-1.2); BLOOD UREA NITROGEN 12 MG/DL (9-23); CALCIUM LEVEL 8.5 MG/DL (8.3-10.6); CARBON DIOXIDE LEVEL 30 MMOL/L (20-31); CHLORIDE LEVEL 105 MMOL/L (98-107); CREATININE FOR GFR 0.75 MG/DL (0.70-1.30); GLOMERULAR FILTRATION RATE > 60.0 (>42); GLUCOSE, FASTING 191 MG/DL (74-106); POTASSIUM SERUM 4.4 MMOL/L (3.5-5.1); SODIUM LEVEL 137 MMOL/L (136-145); TOTAL PROTEIN 6.3 G/DL (5.7-8.2)
[2023-11-25 10:48] VITALS: BP 120/71; O2SAT 95
[~2023-12-24] VITALS: Ht 172.7 cm; Wt 68.6 kg
[~2023-12-24 10:44] MED LIST changes: +FOSAPREPITANT 150 MG in NS 245 ML IV SCH; +PALONOSETRON 0.25MG/5ML VIAL (ALOXI) IV SCH; +PEGFILGRASTIM 6 MG 0.6ML SYR (NEULASTA) SC SCH; +SODIUM CHLORIDE 0.9% INJ 10 ML SYR IV PRN
[2023-12-24 11:14] VITALS: BP 101/60; O2SAT 97
[2023-12-24] MEDS ORDERED: NYST-38 PO (11:58)
[2023-12-31] MEDS ORDERED: AMOX875T2 PO ×2 (12:08→13:01)
[2024-01-03] MEDS ORDERED: METR-265 PO (09:14)
[2024-01-03] MEDS ORDERED: CIPR750T2 PO (09:14)
[2024-01-06] MEDS ORDERED: SENN-186 PO (01:26)
[2024-01-06] MEDS ORDERED: TELM1TAB33 PO (01:26)
[2024-01-06] MEDS ORDERED: MORP1SOL4 PO (01:26)
[2024-01-06] MEDS ORDERED: ASPI81TA26 PO (01:26)
[2024-01-06] MEDS ORDERED: XELO1TAB PO ×2 (01:26)
[2024-01-06] MEDS ORDERED: SYMB16INH INH (01:26)
[2024-01-06] MEDS ORDERED: ROSU10TA61 PO (01:26)
[2024-01-06] MEDS ORDERED: VENTAER INH (01:26)
[2024-01-06] MEDS ORDERED: XANA0.5T PO (01:26)
[2024-01-06] MEDS ORDERED: ACET160L16 JT (01:26)
[2024-01-06] MEDS ORDERED: CREO3600 PO (01:26)
[2024-01-06] MEDS ORDERED: DOCU100C16 PO (01:26)
[2024-01-06] MEDS ORDERED: PRES10CA2 PO (01:26)
[2024-01-06] MEDS ORDERED: BUTR1DIS TOP (01:26)
[2024-01-06] MEDS ORDERED: CIPR750T2 PO (01:26)
[2024-01-06] MEDS ORDERED: METR-265 PO (01:26)
[2024-01-06] MEDS ORDERED: SODIUM CHLORIDE 0.9% INJ 10 ML SYR IV PRN (08:00)
[2024-01-07] MEDS ORDERED: TELM1TAB33 PO (12:01)
[2024-01-07] MEDS ORDERED: LOMO2.5T PO (12:01)
[2024-01-10] MEDS ORDERED: CVS1CRE56 TOP (08:56)
[2024-01-10] MEDS ORDERED: MORP15TA2 PO (09:33)
[2024-01-13] MEDS ORDERED: CENT1TAB PO (08:50)
== END 2024-04-26 | disposition expired ==
LOC: M ONCM 04-26
PROVIDERS: ATTEND Specialist
DX: C25.0 Malignant neoplasm of head of pancreas (principal); Z93.1 Gastrostomy status; D50.9 Iron deficiency anemia, unspecified; I10 Essential (primary) hypertension; I25.10 Atherosclerotic heart disease of native coronary artery without angina pectoris; Z79.82 Long term (current) use of aspirin; Z79.899 Other long term (current) drug therapy; Z87.891 Personal history of nicotine dependence; T85.598A Other mechanical complication of other gastrointestinal prosthetic devices, implants and grafts, initial encounter; R53.1 Weakness; R53.83 Other fatigue; D64.9 Anemia, unspecified; R10.9 Unspecified abdominal pain; R11.2 Nausea with vomiting, unspecified; R20.0 Anesthesia of skin; R30.9 Painful micturition, unspecified; R19.7 Diarrhea, unspecified; E86.0 Dehydration; R11.0 Nausea; Z79.891 Long term (current) use of opiate analgesic; T88.7XXA Unspecified adverse effect of drug or medicament, initial encounter; K85.90 Acute pancreatitis without necrosis or infection, unspecified
CPT/HCPCS: 36415; 36591; 71260; 74177; 80053; 80061; 83690; 85025; 86301; 96361; 96365; 96367; 96372; 96375; 96413; 96415; 96416; 96417; G0463; J0640; J1100; J1453; J1642; J1756; J2405; J2469; J2506; J9190; J9206; J9263; Q9963; Q9967

== ENCOUNTER 2024-01-05 19:57 | Observation (INO) | payer MEDICARE ==
[~2024-01-05] VITALS: Ht 170.2 cm; Wt 64.8 kg
[~2024-01-05 19:57] MED LIST changes: +CIPR750T2 PO; -FOSAPREPITANT 150 MG in NS 245 ML IV SCH; -PALONOSETRON 0.25MG/5ML VIAL (ALOXI) IV SCH; -PEGFILGRASTIM 6 MG 0.6ML SYR (NEULASTA) SC SCH; -SODIUM CHLORIDE 0.9% INJ 10 ML SYR IV PRN; +SODIUM CHLORIDE 0.9% INJ 10 ML SYR IV SCH
[2024-01-05] MEDS: LIDOCAINE 4% CREAM 5GM (LMX4) TOP ONE (20:20)
[2024-01-05] MEDS: GASTROGRAFIN SOLUTION 30ML JT STA (23:28)
[2024-01-05 23:34] LABS: BASO % 0.6 % (0.0-1.0); EOS # 0.2 10^3/uL (0.0-0.5); EOS % 5.5 % (0.0-3.0); HEMATOCRIT 29.3 % (42.0-52.0); HEMOGLOBIN 9.9 g/dl (13.5-17.5); LYMPH # 0.2 10^3/uL (1.5-5.0); LYMPH % 4.3 % (24.0-44.0); MEAN CORPUSCULAR HEMOGLOBIN 27.7 pg (27.0-33.0); MEAN CORPUSCULAR HGB CONC 33.8 g/dl (32.0-36.5); MEAN CORPUSCULAR VOLUME 82.1 fl (80.0-96.0); MONO # 0.6 10^3/uL (0.0-0.8); MONO % 15.9 % (2.0-8.0); NEUTROPHILS # 2.5 10^3/uL (1.5-8.5); NEUTROPHILS % 73.1 % (36.0-66.0); PLATELET COUNT, AUTOMATED 144 10^3/uL (150-450); RED BLOOD COUNT 3.57 10^6/uL (4.30-6.10); WHITE BLOOD COUNT 3.5 10^3/uL (4.0-10.0)
[2024-01-05] MEDS: ALPRAZolam 0.5 MG TAB PO ONE (23:41)
[2024-01-06 00:05] LABS: ALBUMIN 2.4 G/DL (3.2-5.2); ALKALINE PHOSPHATASE 89 U/L (46-116); ALT/SGPT 10 U/L (7.0-40); AST/SGOT 8 U/L (<34); BILIRUBIN,DIRECT 0.3 MG/DL (<0.4); BILIRUBIN,TOTAL 0.6 MG/DL (0.3-1.2); BLOOD UREA NITROGEN < 5 MG/DL (9-23); CALCIUM LEVEL 7.5 MG/DL (8.3-10.6); CARBON DIOXIDE LEVEL 28 MMOL/L (20-31); CHLORIDE LEVEL 106 MMOL/L (98-107); GLOMERULAR FILTRATION RATE > 60.0 (>42); GLUCOSE, FASTING 121 MG/DL (74-106); MAGNESIUM LEVEL 1.8 MG/DL (1.8-2.4); POTASSIUM SERUM 2.8 MMOL/L (3.5-5.1); SODIUM LEVEL 138 MMOL/L (136-145); TOTAL PROTEIN 4.9 G/DL (5.7-8.2)
[2024-01-06 00:54] VITALS: BP 130/84; TEMP 97.2; O2SAT 99
[2024-01-06] MEDS ORDERED: TELM1TAB33 PO (01:26)
[2024-01-06] MEDS ORDERED: XANA0.5T PO (01:26)
[2024-01-06] MEDS ORDERED: DOCU100C16 PO (01:26)
[2024-01-06] MEDS ORDERED: ACET160L16 JT (01:26)
[2024-01-06] MEDS ORDERED: MORP1SOL4 PO (01:26)
[2024-01-06] MEDS ORDERED: SENN-186 PO (01:26)
[2024-01-06] MEDS ORDERED: XELO1TAB PO ×2 (01:26)
[2024-01-06] MEDS ORDERED: METR-265 PO (01:26)
[2024-01-06] MEDS ORDERED: BUTR1DIS TOP (01:26)
[2024-01-06] MEDS ORDERED: CREO3600 PO (01:26)
[2024-01-06] MEDS ORDERED: PRES10CA2 PO (01:26)
[2024-01-06] MEDS ORDERED: CIPR750T2 PO (01:26)
[2024-01-06] MEDS ORDERED: ASPI81TA26 PO (01:26)
[2024-01-06] MEDS ORDERED: ROSU10TA61 PO (01:26)
[2024-01-06] MEDS ORDERED: VENTAER INH (01:26)
[2024-01-06] MEDS ORDERED: SYMB16INH INH (01:26)
[2024-01-06] MEDS ORDERED: HOME MED LIST COMPLETE! XX SCH (01:30)
[2024-01-06] MEDS: POTASSIUM CHLORIDE 10MEQ SR TABLET PO SCH (01:38)
[2024-01-06] MEDS: KCL 10MEQ/100ML SWI (KRUN) 10 MEQ in IV 1 EA IV SCH (02:00)
[2024-01-06 04:00] VITALS: BP 110/67; TEMP 97; O2SAT 93
[2024-01-06] MEDS: LR 1,000 ML IV SCH (04:49)
[2024-01-06 06:37] LABS: BASO % 0.7 % (0.0-1.0); EOS # 0.2 10^3/uL (0.0-0.5); EOS % 7.3 % (0.0-3.0); HEMATOCRIT 29.5 % (42.0-52.0); HEMOGLOBIN 9.9 g/dl (13.5-17.5); LYMPH # 0.1 10^3/uL (1.5-5.0); LYMPH % 4.6 % (24.0-44.0); MEAN CORPUSCULAR HEMOGLOBIN 27.7 pg (27.0-33.0); MEAN CORPUSCULAR HGB CONC 33.6 g/dl (32.0-36.5); MEAN CORPUSCULAR VOLUME 82.6 fl (80.0-96.0); MONO # 0.5 10^3/uL (0.0-0.8); MONO % 17.8 % (2.0-8.0); NEUTROPHILS # 2.1 10^3/uL (1.5-8.5); NEUTROPHILS % 68.9 % (36.0-66.0); PLATELET COUNT, AUTOMATED 131 10^3/uL (150-450); RED BLOOD COUNT 3.57 10^6/uL (4.30-6.10)
[2024-01-06 06:55] LABS: MAGNESIUM LEVEL 1.9 MG/DL (1.8-2.4)
[2024-01-06 07:57] LABS: BLOOD UREA NITROGEN < 5 MG/DL (9-23); CALCIUM LEVEL 7.6 MG/DL (8.3-10.6); CARBON DIOXIDE LEVEL 28 MMOL/L (20-31); CHLORIDE LEVEL 107 MMOL/L (98-107); CREATININE FOR GFR 0.81 MG/DL (0.70-1.30); GLOMERULAR FILTRATION RATE > 60.0 (>42); GLUCOSE, FASTING 124 MG/DL (74-106); POTASSIUM SERUM 3.8 MMOL/L (3.5-5.1); SODIUM LEVEL 138 MMOL/L (136-145)
[2024-01-06] MEDS: SODIUM CHLORIDE 0.9% INJ 10 ML SYR IV SCH (08:50)
[2024-01-06] MEDS ORDERED: ALBUTEROL 90 MCG/ACT 8GM HFA INHALER INH PRN (10:30)
[2024-01-06] MEDS ORDERED: ISOVUE-370 76% 100ML VIAL As Ordered ONE (10:39)
[2024-01-06 10:54] LABS: PROCALCITONIN 0.11 ng/ml
[2024-01-06] MEDS: MORPHINE SULFATE ORAL SOLN 10 MG/5 ML UD PO PRN (11:32)
[2024-01-06] MEDS: CLOTRIMAZOLE 1% TOPICAL CREAM 30GM TOP SCH (11:36)
[2024-01-06] MEDS: HEPARIN SOD (PORCINE) 5000UNITS/ML 1ML VIAL/SYRINGE SQ SCH (11:54)
[2024-01-06 12:00] VITALS: BP 134/74; TEMP 97; O2SAT 98
[2024-01-06] MEDS ORDERED: CREON-24 CAPSULE (PANCRELIPASE) PO SCH (12:30)
[2024-01-06] MEDS: CREON-12 CAPSULE (PANCRELIPASE) PO SCH (12:48)
[2024-01-06] MEDS: LOMOTIL 2.5MG/0.025MG TABLET PO SCH (18:20)
[2024-01-06] MEDS: SYMBICORT 160/4.5MCG INHALER 6GM INH SCH (19:21)
[2024-01-06 20:00] VITALS: BP 133/72; TEMP 97; O2SAT 96
[2024-01-06] MEDS: ALPRAZolam 0.5 MG TAB PO PRN (20:52)
[2024-01-06] MEDS: TAMSULOSIN 0.4 MG CAP PO SCH (20:53)
[2024-01-06] MEDS: ASPIRIN 81MG ENTERIC TABLET PO SCH (20:55)
[2024-01-06] MEDS: ROSUVASTATIN 10 MG TAB (CRESTOR) PO SCH (20:55)
[2024-01-06] MEDS ORDERED: CAPECITABINE 50 MG/ML PO SCH (21:00)
[2024-01-07 04:00] VITALS: BP 101/57; TEMP 97.3; O2SAT 95
[2024-01-07 05:52] LABS: BASO % 0.9 % (0.0-1.0); EOS # 0.5 10^3/uL (0.0-0.5); HEMATOCRIT 30.2 % (42.0-52.0); HEMOGLOBIN 9.8 g/dl (13.5-17.5); LYMPH # 0.2 10^3/uL (1.5-5.0); LYMPH % 4.7 % (24.0-44.0); MEAN CORPUSCULAR HEMOGLOBIN 27.2 pg (27.0-33.0); MEAN CORPUSCULAR HGB CONC 32.5 g/dl (32.0-36.5); MEAN CORPUSCULAR VOLUME 83.9 fl (80.0-96.0); MONO # 0.5 10^3/uL (0.0-0.8); MONO % 14.8 % (2.0-8.0); NEUTROPHILS # 2.1 10^3/uL (1.5-8.5); NEUTROPHILS % 62.4 % (36.0-66.0); PLATELET COUNT, AUTOMATED 134 10^3/uL (150-450); WHITE BLOOD COUNT 3.4 10^3/uL (4.0-10.0)
[2024-01-07 06:18] LABS: ALBUMIN 2.1 G/DL (3.2-5.2); ALKALINE PHOSPHATASE 82 U/L (46-116); ALT/SGPT 9 U/L (7.0-40); AST/SGOT 12 U/L (<34); BILIRUBIN,TOTAL 0.5 MG/DL (0.3-1.2); BLOOD UREA NITROGEN 5 MG/DL (9-23); CALCIUM LEVEL 7.9 MG/DL (8.3-10.6); CARBON DIOXIDE LEVEL 30 MMOL/L (20-31); CHLORIDE LEVEL 109 MMOL/L (98-107); CREATININE FOR GFR 0.81 MG/DL (0.70-1.30); GLOMERULAR FILTRATION RATE > 60.0 (>42); GLUCOSE, FASTING 118 MG/DL (74-106); MAGNESIUM LEVEL 1.8 MG/DL (1.8-2.4); POTASSIUM SERUM 4.1 MMOL/L (3.5-5.1); SODIUM LEVEL 141 MMOL/L (136-145); TOTAL PROTEIN 4.5 G/DL (5.7-8.2)
[2024-01-07] MEDS ORDERED: LIDOCAINE 1% MDV 20ML VIAL As Ordered ONE (07:18)
[2024-01-07] MEDS ORDERED: ISOVUE-300 61% 100ML VIAL As Ordered ONE (07:18)
[2024-01-07] MEDS ORDERED: LIDOCAINE 2% JELLY 6ML SYRINGE As Ordered ONE (08:12)
[2024-01-07] MEDS ORDERED: MIDAZOLAM INJ 2MG/2ML VIAL As Ordered ONE (08:27)
[2024-01-07] MEDS ORDERED: fentaNYL 100 MCG/2 ML INJECTION As Ordered ONE (08:27)
[2024-01-07 10:00] VITALS: BP 131/71; TEMP 97; O2SAT 98
[2024-01-07] MEDS ORDERED: LOMO2.5T PO (12:01)
[2024-01-07] MEDS ORDERED: TELM1TAB33 PO (12:01)
[2024-01-07] MEDS: SODIUM CHLORIDE 0.9% INJ 10 ML SYR IV PRN (13:48)
== END 2024-01-07 14:13 | disposition home or self-care (01) ==
LOC: EDBD 19:57 → M ED 19:57 → M ED INP 19:58 → M MSPAV 01-06 00:47
PROVIDERS: ADMIT Family Medicine; ATTEND Internal Medicine
DX: K94.13 Enterostomy malfunction (principal); E87.6 Hypokalemia; Z79.82 Long term (current) use of aspirin; Z79.899 Other long term (current) drug therapy; I25.10 Atherosclerotic heart disease of native coronary artery without angina pectoris; E78.5 Hyperlipidemia, unspecified; I10 Essential (primary) hypertension; F41.9 Anxiety disorder, unspecified; F32.A Depression, unspecified; N40.0 Benign prostatic hyperplasia without lower urinary tract symptoms; K21.9 Gastro-esophageal reflux disease without esophagitis; D64.9 Anemia, unspecified; Z88.8 Allergy status to other drugs, medicaments and biological substances
CPT/HCPCS: 36415; 49451; 74018; 74160; 80048; 80053; 80076; 81001; 83735; 84145; 85025; 87086; 87507; 94640; 96360; 96361; 99152; 99153; 99284; C1729; C1887; G0378; J1642; J2250; J3010; Q9967

== ENCOUNTER 2024-01-11 08:08 | Outpatient (RCR) | payer MEDICARE ==
[2024-01-03 09:43] LABS: BASO % 0.7 % (0.0-1.0); EOS # 0.3 10^3/uL (0.0-0.5); EOS % 4.5 % (0.0-3.0); HEMATOCRIT 34.1 % (42.0-52.0); HEMOGLOBIN 11.6 g/dl (13.5-17.5); LYMPH # 0.1 10^3/uL (1.5-5.0); LYMPH % 2.5 % (24.0-44.0); MEAN CORPUSCULAR VOLUME 82.4 fl (80.0-96.0); MONO # 0.7 10^3/uL (0.0-0.8); MONO % 12.5 % (2.0-8.0); NEUTROPHILS # 4.4 10^3/uL (1.5-8.5); NEUTROPHILS % 79.3 % (36.0-66.0); PLATELET COUNT, AUTOMATED 142 10^3/uL (150-450); RED BLOOD COUNT 4.14 10^6/uL (4.30-6.10); WHITE BLOOD COUNT 5.6 10^3/uL (4.0-10.0)
[2024-01-03 10:13] LABS: ALBUMIN 2.6 G/DL (3.2-5.2); ALKALINE PHOSPHATASE 108 U/L (46-116); ALT/SGPT 13 U/L (7.0-40); AST/SGOT < 8 U/L (<34); BILIRUBIN,TOTAL 0.9 MG/DL (0.3-1.2); BLOOD UREA NITROGEN 7 MG/DL (9-23); CALCIUM LEVEL 7.8 MG/DL (8.3-10.6); CARBON DIOXIDE LEVEL 29 MMOL/L (20-31); CHLORIDE LEVEL 102 MMOL/L (98-107); CREATININE FOR GFR 0.85 MG/DL (0.70-1.30); GLOMERULAR FILTRATION RATE > 60.0 (>42); GLUCOSE, FASTING 119 MG/DL (74-106); POTASSIUM SERUM 3.3 MMOL/L (3.5-5.1); SODIUM LEVEL 135 MMOL/L (136-145); TOTAL PROTEIN 5.6 G/DL (5.7-8.2)
[~2024-01-11 08:08] MED LIST changes: +ACET160L16 JT; +ASPI81TA26 PO; +CVS1CRE56 TOP; +DOCU100C16 PO; +LOMO2.5T PO; +MORP15TA2 PO; +MORP1SOL4 PO; -SODIUM CHLORIDE 0.9% INJ 10 ML SYR IV SCH; +SYMB16INH INH; +VENTAER INH; +XANA0.5T PO; +XELO1TAB PO
[2024-01-13] MEDS ORDERED: CENT1TAB PO (08:50)
== END 2024-01-24 ==
LOC: M ONCR 08:08
PROVIDERS: ATTEND General Practice
DX: Z51.0 Encounter for antineoplastic radiation therapy (principal); C25.0 Malignant neoplasm of head of pancreas

== ENCOUNTER → 2024-01-13 | Outpatient (CLI) | payer MEDICARE ==
[~2024-01-13] VITALS: Ht 170.2 cm; Wt 64.7 kg
[~2024-01-13] MED LIST changes: +CENT1TAB PO
[2024-01-13 08:47] VITALS: BP 103/66; O2SAT 95
== END ==
LOC: M PAL 08:34
PROVIDERS: ATTEND Nurse Practitioner Adult Health
DX: C25.9 Malignant neoplasm of pancreas, unspecified (principal); G89.3 Neoplasm related pain (acute) (chronic); F32.A Depression, unspecified; R19.7 Diarrhea, unspecified; R43.8 Other disturbances of smell and taste; J44.9 Chronic obstructive pulmonary disease, unspecified; Z66 Do not resuscitate; Z51.5 Encounter for palliative care; Z79.51 Long term (current) use of inhaled steroids; Z79.82 Long term (current) use of aspirin; Z79.891 Long term (current) use of opiate analgesic; Z79.899 Other long term (current) drug therapy; Z88.1 Allergy status to other antibiotic agents; Z88.8 Allergy status to other drugs, medicaments and biological substances; Z80.51 Family history of malignant neoplasm of kidney; Z87.891 Personal history of nicotine dependence; Z92.21 Personal history of antineoplastic chemotherapy; Z92.3 Personal history of irradiation; Z93.4 Other artificial openings of gastrointestinal tract status

== ENCOUNTER → 2024-01-18 | Outpatient (CLI) | payer MEDICARE ==
[~2024-01-18] MED LIST changes: +NS 1,000 ML IV SCH
== END ==
LOC: M IRPRO 10:03
PROVIDERS: ATTEND General Practice
DX: C25.9 Malignant neoplasm of pancreas, unspecified (principal); Z53.9 Procedure and treatment not carried out, unspecified reason

== ENCOUNTER 2024-01-30 07:30 | Emergency (ER) | payer MEDICARE ==
[~2024-01-30] VITALS: Ht 170.2 cm; Wt 68.2 kg
[~2024-01-30 07:30] MED LIST changes: -NS 1,000 ML IV SCH
[2024-01-30 08:18] LABS: HEMATOCRIT 31.2 % (42.0-52.0); HEMOGLOBIN 10.9 g/dl (13.5-17.5); MEAN CORPUSCULAR HEMOGLOBIN 28.8 pg (27.0-33.0); MEAN CORPUSCULAR HGB CONC 34.9 g/dl (32.0-36.5); MEAN CORPUSCULAR VOLUME 82.3 fl (80.0-96.0); RED BLOOD COUNT 3.79 10^6/uL (4.30-6.10); WHITE BLOOD COUNT 13.6 10^3/uL (4.0-10.0)
[2024-01-30] MEDS: NS 2,050 ML in IV 1 EA IV ONE (08:23)
[2024-01-30] MEDS: EMLA CREAM 5GM TUBE (LIDOCAINE/PRILOCAINE) TOP ONE (08:24)
[2024-01-30 08:30] LABS: INR 1.74; PARTIAL THROMBOPLASTIN TIME 43.7 SECONDS (24.8-34.2); PROTHROMBIN TIME 19.8 SECONDS (12.5-14.5)
[2024-01-30 08:38] LABS: PLATELET COUNT, AUTOMATED 54 10^3/uL (150-450)
[2024-01-30 08:44] LABS: LYMPHOCYTES 1 % (16-44); NEUTROPHILS 85 % (28-66)
[2024-01-30 08:46] LABS: PLATELET ESTIMATE DECREASED (NORMAL)
[2024-01-30 08:48] LABS: ANISOCYTOSIS 3+; CRENATED RBC 1+
[2024-01-30 08:49] LABS: OVALOCYTES 1+
[2024-01-30 08:50] LABS: POIKILOCYTOSIS 1+
[2024-01-30 08:51] LABS: TEAR DROP CELLS 1+
[2024-01-30 09:29] LABS: ALBUMIN 1.9 G/DL (3.2-5.2); ALKALINE PHOSPHATASE 1081 U/L (46-116); ALT/SGPT 171 U/L (7.0-40); AMYLASE < 20 U/L (30-118); AST/SGOT 103 U/L (<34); BILIRUBIN,DIRECT 4.2 MG/DL (<0.4); BILIRUBIN,TOTAL 5.5 MG/DL (0.3-1.2); BLOOD UREA NITROGEN 22 MG/DL (9-23); CARBON DIOXIDE LEVEL 19 MMOL/L (20-31); CHLORIDE LEVEL 98 MMOL/L (98-107); CREATININE FOR GFR 1.24 MG/DL (0.70-1.30); GLOMERULAR FILTRATION RATE > 60.0 (>42); GLUCOSE, FASTING 72 MG/DL (74-106); POTASSIUM SERUM 3.3 MMOL/L (3.5-5.1); PROCALCITONIN >50.00 ng/ml; SODIUM LEVEL 129 MMOL/L (136-145); TOTAL PROTEIN 4.3 G/DL (5.7-8.2)
[2024-01-30] MEDS ORDERED: ISOVUE-370 76% 100ML VIAL As Ordered ONE (09:55)
[2024-01-30] MEDS: cefTRIAXone SOD 2 GM in DEXTROSE 5% (D5W) ADV/MINI-BAG 50 ML IV ONE (09:58)
[2024-01-30 10:06] LABS: VENOUS BASE EXCESS -4.3 (-2.0-2.0); VENOUS HCO3 19.7 MMOL/L (23.0-27.0); VENOUS O2 SATURATION 84.1 % (60.0-80.0); VENOUS PARTIAL PRESSURE CO2 32.1 mmHg (38.0-50.0); VENOUS PARTIAL PRESSURE O2 48.2 mmHg (30.0-50.0); VENOUS PH 7.406 UNITS (7.330-7.430); VENOUS STANDARD HCO3 20.7 MMOL/L; VENOUS TOTAL CO2 20.7 MMOL/L (24.0-28.0)
[2024-01-30] MEDS: NOREPINEPHRINE 4MG IN D5 250ML 4 MG in IV 1 EA IV SCH (11:13)
[2024-01-30] MEDS: NS 1,000 ML IV ONE (11:14)
[2024-01-30] MEDS: PIPERACILLIN/TAZOBACTAM SOD 4.5 GM in DEXTROSE 5% (D5W) ADV/MINI-BAG 50 ML IV ONE (12:50)
[2024-01-30 13:30] LABS: APPEARANCE, URINE HAZY (CLEAR); BACTERIA, URINE AUTO 2+ (NEGATIVE); BILIRUBIN, URINE AUTO NEGATIVE (NEGATIVE); BLOOD, URINE BLOOD 3+ (NEGATIVE); COLOR, URINE YELLOW (YELLOW); GLUCOSE, URINE (UA) AUTO NEGATIVE (NEGATIVE); GRANULAR CAST, URINE AUTO 4 /LPF; KETONE, URINE AUTO NEGATIVE (NEGATIVE); LEUKOCYTE ESTERASE, URINE AUTO NEGATIVE (NEGATIVE); MUCUS, URINE SMALL (NEGATIVE); NITRITE, URINE AUTO NEGATIVE (NEGATIVE); PROTEIN, URINE AUTO NEGATIVE (NEGATIVE); RBC, URINE AUTO 1 /HPF (0-3); SPECIFIC GRAVITY URINE AUTO 1.014 (1.002-1.035); SQUAMOUS EPITHELIAL CELL UR AU 0 /HPF (0-6); UROBILINOGEN, URINE AUTO 0.2 mg/dL (0.0-2.0); WBC, URINE AUTO 4 /HPF (0-3)
[2024-01-30] MEDS: ALPRAZolam 0.5 MG TAB PO STA (14:01)
[2024-01-30 14:16] VITALS: BP 117/74
[2024-01-30 14:22] VITALS: TEMP 97.3; O2SAT 95
== END 2024-01-30 14:30 | disposition short-term general hospital (02) ==
LOC: M ED 07:30 → EDBD 07:30 → UNDOADMIN 11:28 → M ED INP 11:28 → UNDODISIN 14:25 → M ED 14:30
DX: J15.0 Pneumonia due to Klebsiella pneumoniae (principal); R65.20 Severe sepsis without septic shock; T85.590A Other mechanical complication of bile duct prosthesis, initial encounter; I44.4 Left anterior fascicular block; I45.10 Unspecified right bundle-branch block; I10 Essential (primary) hypertension; J44.9 Chronic obstructive pulmonary disease, unspecified; J45.909 Unspecified asthma, uncomplicated; K21.9 Gastro-esophageal reflux disease without esophagitis; M54.50 Low back pain, unspecified; C25.9 Malignant neoplasm of pancreas, unspecified; Z87.891 Personal history of nicotine dependence; Z95.0 Presence of cardiac pacemaker; Z93.1 Gastrostomy status; Z88.8 Allergy status to other drugs, medicaments and biological substances; Z79.52 Long term (current) use of systemic steroids; Z79.82 Long term (current) use of aspirin; Z79.899 Other long term (current) drug therapy; Z87.442 Personal history of urinary calculi
CPT/HCPCS: 36415; 70450; 71045; 71260; 74177; 80048; 80076; 81001; 82150; 82330; 82803; 83605; 84145; 85025; 85049; 85055; 85610; 85730; 86140; 86850; 86900; 86901; 87040; 87077; 87086; 87186; 87486; 87581; 87633; 87798; 93005; 93041; 96361; 96365; 96366; 99285; J0696; J2543; Q9967

== ENCOUNTER 2024-03-10 12:26 | Emergency (ER) | payer MEDICARE ==
[~2024-03-10] VITALS: Ht 170.2 cm; Wt 119.0 kg
[2024-03-10 12:40] VITALS: BP 111/60; TEMP 98.1; O2SAT 96
== END 2024-03-10 15:22 | disposition home or self-care (01) ==
LOC: M ED 12:26
DX: T83.098A Other mechanical complication of other urinary catheter, initial encounter (principal); C25.9 Malignant neoplasm of pancreas, unspecified; N40.1 Benign prostatic hyperplasia with lower urinary tract symptoms; Z87.442 Personal history of urinary calculi; Z88.8 Allergy status to other drugs, medicaments and biological substances; Z79.52 Long term (current) use of systemic steroids; Z79.82 Long term (current) use of aspirin; Z79.899 Other long term (current) drug therapy